=== PATIENT | female | born 1950 | race African-American/Black ===

== ENCOUNTER 2020-07-29 21:16 | Inpatient (IN) | payer MEDICAID ==
[~2020-07-29] VITALS: Ht 157.5 cm; Wt 85.7 kg
[2020-07-29 21:16] VITALS: BP 116/62
[2020-07-29] MEDS ORDERED: LIPITOR80 MG ORAL (21:25)
[2020-07-29] MEDS ORDERED: ALBUTEROL2.5 MG/3 M INH (21:25)
[2020-07-29] MEDS ORDERED: BUDESONIDE-FO10.2 G1 IH (21:25)
[2020-07-29] MEDS ORDERED: ASPERCREME LID1 EACH TP (21:25)
[2020-07-29] MEDS ORDERED: NESINA25 MG PO (21:25)
[2020-07-29] MEDS ORDERED: ACETAMINOPHEN325 M1 ORAL (21:25)
[2020-07-29] MEDS ORDERED: Zosyn 3.375gm inj ONE (21:29)
[2020-07-29] MEDS ORDERED: dexAMETHasone 10mg/ml Inj IV ONE ×2 (21:30→21:31)
[2020-07-29] MEDS ORDERED: Piperacillin/Tazobactam 3.375 GM in NS 110 ML IV ONE (21:30)
[2020-07-29 21:57] LABS: BASOPHILS % (AUTO) 1.7 % (0.0-2.0); EOSINOPHILS % (AUTO) 0.8 % (0.0-3.0); HEMATOCRIT 34.5 % (37.0-47.0); LYMPHOCYTES % (AUTO) 16.5 % (20.0-45.0); MEAN CORPUSCULAR VOLUME 90 FL (80-99); MONOCYTES % (AUTO) 8.1 % (1.0-10.0); NEUTROPHILS % (AUTO) 72.9 % (45.0-75.0); PLATELET COUNT 202 K/UL (150-450); RED BLOOD COUNT 3.83 M/UL (4.20-5.40); RED CELL DISTRIBUTION WIDTH 19.5 % (11.6-14.8); WHITE BLOOD COUNT 14.8 K/UL (4.8-10.8)
[2020-07-29 21:57] LABS: APPEARANCE,URINE VERY CLOUDY; BILIRUBIN, URINE NEGATIVE (NEGATIVE); COLOR,URINE PALE YELLOW; GLUCOSE, URINE (UA) NEGATIVE (NEGATIVE); KETONES,URINE NEGATIVE (NEGATIVE); LEUKOCYTE ESTERASE ,URINE 3+ (NEGATIVE); NITRITE,URINE NEGATIVE (NEGATIVE); PH,URINE 8 (4.5-8.0); PROTEIN,URINE 4+ (NEGATIVE); UROBILINOGEN,URINE NORMAL MG/DL (0.0-1.0)
[2020-07-29 22:18] LABS: INR 0.9 (0.9-1.1)
[2020-07-29] MEDS ORDERED: DIPHENHYDRAMINE25 M1 ORAL (22:21)
[2020-07-29] MEDS ORDERED: GUAIFENESI100 MG/5 M ORAL (22:21)
[2020-07-29] MEDS ORDERED: CALCIUM ACETAT667 M1 PO (22:21)
[2020-07-29] MEDS ORDERED: TRAZODONE HCL100 MG ORAL (22:21)
[2020-07-29] MEDS ORDERED: SENNA8.6 M2 PO (22:21)
[2020-07-29] MEDS ORDERED: LEXAPRO10 MG ORAL (22:21)
[2020-07-29] MEDS ORDERED: NEPHROVITE1 TAB ORAL (22:21)
[2020-07-29] MEDS ORDERED: APRESOLINE100 MG ORAL (22:21)
[2020-07-29] MEDS ORDERED: DULCOLAX10 MG RC (22:21)
[2020-07-29] MEDS ORDERED: NAHCO3650 MG ORAL (22:21)
[2020-07-29] MEDS ORDERED: ZOFRAN4 M1 ORAL (22:21)
[2020-07-29] MEDS ORDERED: CLONIDINE HCL0.3 MG PO (22:21)
[2020-07-29] MEDS ORDERED: FERROUS SULFAT325 M2 ORAL (22:21)
[2020-07-29] MEDS ORDERED: ADALAT20 MG ORAL (22:21)
[2020-07-29] MEDS ORDERED: COREG12.5 MG ORAL (22:21)
[2020-07-29] MEDS ORDERED: MIRALAX17 G2 ORAL (22:21)
[2020-07-29] MEDS ORDERED: LACTULOSE10 GM/155 PO (22:21)
[2020-07-29 22:22] LABS: CALCIUM 6.6 MG/DL (8.5-10.1); CREATININE 10.4 MG/DL (0.55-1.30); POTASSIUM 4.2 MMOL/L (3.5-5.1)
[2020-07-29 22:33] LABS: ALBUMIN 1.9 G/DL (3.4-5.0); ALBUMIN/GLOBULIN RATIO 0.5 (1.0-2.7); BILIRUBIN,TOTAL 0.2 MG/DL (0.2-1.0); CKMB 1.1 NG/ML (0.0-3.6); PHOSPHORUS 6.6 MG/DL (2.5-4.9)
[2020-07-29] MEDS ORDERED: Miralax 17gm pkt ORAL PRN (22:45)
[2020-07-29] MEDS ORDERED: guaiFENesin 100mg/5ml Liq ud ORAL PRN (22:45)
[2020-07-29] MEDS ORDERED: Nitroglycerin Subl 0.4mg tab SL PRN (22:45)
--- NOTE | 2020-07-29 22:48 | Emergency Room Report ---
History of Present Illness General Chief Complaint: Flu Like Symptoms Source: Patient, EMS Present Illness HPI Disclaimer: Please note that this report is being documented using DRAGON technology. This can lead to erroneous entry secondary to incorrect interpretation by the dictating instrument. HPI: This is a 70-year-old female with a history of ESRD, diabetes, hyperlipidemia, asthma presenting for evaluation of pneumonia diagnosed on outpatient imaging. Patient tested positive for Covid 19 last week though tested negative by rapid swab today. Chest x-ray performed at nursing facility is concerning for infiltrates. Patient arrives saturating 100% on 3 L nasal cannula no respiratory distress. Patient states she feels "sick" but is feeling better on oxygen. Denies chest pain or palpitations. Reports intermittent cough and feeling weak. 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 EOMI. Cardiovascular: Somewhat irregular rhythm. Palpable fistula on the left antecubital fossa. Resp: Normal work of breathing on 3 L nasal cannula. No wheezing or crackles appreciated. Skin: Intact. No abrasions, laceration or rash over the exposed skin MSK: Normal tone and bulk. Moving all extremities. No obvious deformity. Neuro: Awake and alert. Mentating appropriately. Medical Decision Making Diagnostic Impression: Primary Impression: Pneumonia Additional Impressions: UTI (urinary tract infection) Suspected 2019 novel coronavirus infection Metabolic acidosis ER Course Is a 70-year-old female with history of ESRD and recently tested positive for COVID-19 presenting for possible pneumonia. EKG shows sinus rhythm with frequent PVCs but no obvious ischemic ST changes. Chest x-ray shows cardiomegaly and mild vascular congestion. There may be a consolidation of the left lower lobe it is difficult to make out the heart border. Patient was treated with Zosyn empirically on arrival and is currently doing well on 3 L nasal cannula. Labs show Slightly elevated white count at 14.8 though she does seem to have a metabolic acidosis with a pH of 7.13. Troponin slightly elevated in the setting of renal failure. Urinalysis consistent with acute urinary tract infection. Patient would require admission to her PMD, Dr. Andres Laboratory Tests Test 07/29/20 20:40 07/29/20 21:41 07/29/20 22:00 White Blood Count 14.8 K/UL (4.8-10.8) H Red Blood Count 3.83 M/UL (4.20-5.40) L Hemoglobin 11.0 G/DL (12.0-16.0) L Hematocrit 34.5 % (37.0-47.0) L Mean Corpuscular Volume 90 FL (80-99) Mean Corpuscular Hemoglobin 28.6 PG (27.0-31.0) Mean Corpuscular Hemoglobin Concent 31.8 G/DL (32.0-36.0) L Red Cell Distribution Width 19.5 % (11.6-14.8) H Platelet Count 202 K/UL (150-450) Mean Platelet Volume 7.8 FL (6.5-10.1) Neutrophils (%) (Auto) 72.9 % (45.0-75.0) Lymphocytes (%) (Auto) 16.5 % (20.0-45.0) L Monocytes (%) (Auto) 8.1 % (1.0-10.0) Eosinophils (%) (Auto) 0.8 % (0.0-3.0) Basophils (%) (Auto) 1.7 % (0.0-2.0) Prothrombin Time 10.3 SEC (9.30-11.50) Prothrombin Time INR 0.9 (0.9-1.1) Activated Partial Thromboplast Time 33 SEC (23-33) D-Dimer 6.41 mg/L FEU (0.00-0.49) H Sodium Level 135 MMOL/L (136-145) L Potassium Level 4.2 MMOL/L (3.5-5.1) Chloride Level 105 MMOL/L (98-107) Carbon Dioxide Level 12 MMOL/L (21-32) L Anion Gap 18 mmol/L (5-15) H Blood Urea Nitrogen 157 mg/dL (7-18) H Creatinine 10.4 MG/DL (0.55-1.30) H Estimated Glomerular Filtration Rate 4.5 mL/min (>60) Glucose Level 100 MG/DL (74-106) Lactic Acid Level 0.30 mmol/L (0.4-2.0) L Calcium Level 6.6 MG/DL (8.5-10.1) L Phosphorus Level 6.6 MG/DL (2.5-4.9) H Magnesium Level 1.6 MG/DL (1.8-2.4) L Ferritin 809 NG/ML (8-388) H Total Bilirubin 0.2 MG/DL (0.2-1.0) Aspartate Amino Transferase (AST) 38 U/L (15-37) H Alanine Aminotransferase (ALT) 11 U/L (12-78) L Alkaline Phosphatase 64 U/L (46-116) Lactate Dehydrogenase 403 U/L (81-234) H Total Creatine Kinase 110 U/L (26-308) Creatine Kinase MB 1.1 NG/ML (0.0-3.6) Creatine Kinase MB Relative Index 1.0 Troponin I 0.058 ng/mL (0.000-0.056) C-Reactive Protein, Quantitative 7.2 mg/dL (0.00-0.90) H Pro-B-Type Natriuretic Peptide 25761 pg/mL (0-125) H Total Protein 6.1 G/DL (6.4-8.2) L Albumin 1.9 G/DL (3.4-5.0) L Globulin 4.2 g/dL Albumin/Globulin Ratio 0.5 (1.0-2.7) L Lipase 380 U/L (73-393) Urine Color Pale yellow Urine Appearance Very cloudy Urine pH 8 (4.5-8.0) Urine Specific [place] 1.010 (1.005-1.035) Urine Protein 4+ (NEGATIVE) H Urine Glucose (UA) Negative (NEGATIVE) Urine Ketones Negative (NEGATIVE) Urine Blood 2+ (NEGATIVE) H Urine Nitrite Negative (NEGATIVE) Urine Bilirubin Negative (NEGATIVE) Urine Urobilinogen Normal MG/DL (0.0-1.0) Urine Leukocyte Esterase 3+ (NEGATIVE) H Urine RBC 10-15 /HPF (0 - 2) H Urine WBC Tntc /HPF (0 - 2) H Urine Squamous Epithelial Cells Moderate /LPF (NONE/OCC) H Urine Bacteria Many /HPF (NONE) H Arterial Blood pH 7.137 (7.350-7.450) Arterial Blood Partial Pressure CO2 32.7 mmHg (35.0-45.0) L Arterial Blood Partial Pressure O2 169.3 mmHg (75.0-100.0) H Arterial Blood HCO3 10.8 mmol/L (22.0-26.0) *L Arterial Blood Oxygen Saturation 98.4 % (95-100) Arterial Blood Base Excess -17.0 (-2-2) *L William Test Positive EKG Diagnostic Results Troponin ordered: Yes When was troponin ordered?: Jul 29, 2020 EKG Time: 21:27 Rate: normal Rhythm: NSR ST Segments: no acute changes Other Impression Sinus rhythm, frequent PVCs, no ST segment changes. Rhythm Strip Diag. Results Rhythm Strip Time: 21:27 EP Interpretation: yes Rate: 70s Rhythm: other - Frequent PVCs Chest X-Ray Diagnostic Results Chest X-Ray Diagnostic Results : Chest X-Ray Ordered: Yes # of Views/Limited/Complete: 1 View Indication: Shortness of Breath EP Interpretation: Yes Interpretation: no effusion, no pneumothorax, other - Possible consolidation left lower lobe. No obvious effusion. No pneumothorax. Impression: Other - Cardiomegaly, possible left lower lobe effusion Electronically Signed by: Electronically signed by Dr. Aryan Angeles MD Last Vital Signs Date Time Temp Pulse Resp B/P (MAP) Pulse Ox O2 Delivery O2 Flow Rate FiO2 07/29/20 21:08 74 20 140/60 (86) 98 Nasal Cannula 3.0 Disposition: ADMITTED INPATIENT Condition: Serious Referrals: Christopher Andres MD (PCP) Aryan Angeles MD Jul 29, 2020 22:48
[2020-07-29] MEDS ORDERED: Sodium Bicarbonate 150 ML in D5W 1000ml 1,000 ML IV SCH (23:00)
[2020-07-29] MEDS ORDERED: Azithromycin 250mg tab ORAL SCH (23:00)
[2020-07-29] MEDS: Albuterol/Ipratropium 3ml neb HHN SCH (23:00)
[2020-07-30] MEDS ORDERED: Morphine Sulfate 2mg/ml Inj(IV/IM USE ONLY) IVP ONE (00:15)
[2020-07-30 01:14] VITALS: BP 110/64
[2020-07-30] MEDS: Albuterol/Ipratropium 3ml neb HHN SCH ×6 (03:00→23:00)
--- NOTE | 2020-07-30 03:16 | History and Physical Report ---
DATE OF ADMISSION: 07/29/2020 CHIEF COMPLAINT AND REASON FOR HOSPITALIZATION: The patient admitted with weakness, shortness of breath, possible COVID-19 versus CHF, and end-stage renal disease. HISTORY OF PRESENT ILLNESS: The patient is a 70-year-old lady with chronic kidney disease secondary to diabetes and hypertension. She has had progressive azotemia and a recent lab as outpatient showed BUN of 120 and creatinine of 9 and some metabolic acidosis. She was recently transferred from [facility] to [facility] because of asymptomatic positive COVID test. The nurse said she has had mild cough and a chest x-ray today at the [facility] showed bilateral infiltrates. COVID-19 rapid test on 07/29/2020 was negative. There is no fever or chills. PAST MEDICAL HISTORY: The patient has history of COPD, former smoker, hypertension difficult to control, chronic depression, bedridden status, nonambulatory, osteoarthritis, and nephrotic syndrome. ALLERGIES: None known. SURGERIES: Ovaries bilaterally and partial hysterectomy, ventral hernia. HABITS: She is a prior smoker for many years and quit. No alcohol or drugs. SOCIAL HISTORY: She lives in [facility]. MEDICATIONS: Include Tylenol, albuterol inhalation, alogliptin, lidocaine patch, atorvastatin, Symbicort, calcium acetate, carvedilol, clonidine, Benadryl, Dulcolax suppository, Lexapro, famotidine, ferrous sulfate, hydralazine, lactobacillus, lactulose, Lasix discontinued a few days ago, MiraLAX, Nephro-Diane, nifedipine extended release, Epogen, senna, and vitamin D3. SYSTEM REVIEW: HEAD, EYES, EARS, NOSE, THROAT: Vision and hearing is good. ENDOCRINE: History of diabetes, controlled by oral agents alone. No thyroid disease. She likely has a lipoma adjacent to the thyroid. PULMONARY: History of COPD. In the past, she was oxygen dependent, but she has been off oxygen for more than a year. CARDIAC: History of severe hypertension. History of leg edema likely from nephrotic syndrome and low albumin. No definite angina or [place]. GASTROINTESTINAL: History of chronic constipation and prior diarrhea, which may have been post obstruction from some irritable bowel syndrome. No hematochezia or melena. GENITOURINARY: She is incontinent of urine. NEUROLOGIC: No CVA or seizures. PHYSICAL EXAMINATION: GENERAL: The patient is alert and chronically ill appearing. VITAL SIGNS: Reviewed on the computer. HEAD, EYES, EARS, NOSE, THROAT: Sclerae are nonicteric. Ocular motions intact in all directions. Oral mucosa moist. NECK: No adenopathy. LUNGS: I do not hear any rales or rhonchi. HEART: Regular rhythm. No murmur. ABDOMEN: Obese and soft without organomegaly. She has a ventral hernia. EXTREMITIES: Show 2+ edema and dry scaly skin on the lower extremities. NEUROLOGIC: She is alert and responsive. Cranial nerves are intact. She moves all extremities. IMPRESSION: 1. Chronic kidney disease stage 5, due for dialysis. 2. Bilateral pulmonary infiltrates, possibly from CHF versus COVID-19 pneumonia. COVID test rapid on 07/29/2020 is negative. 3. COPD. 4. Severe hypertension. 5. Debility. PLAN: We will treat her for CHF, acidosis, and COVID-19. Watch closely in view of her comorbidities. Detailed orders were written. Christopher Andres M.D. DR: Fiordaliza JOB#: [id number] CC:
[2020-07-30 08:00] VITALS: BP 156/60
[2020-07-30] MEDS: dexAMETHasone 10mg/ml Inj IV SCH (08:27)
[2020-07-30] MEDS: Aspirin Baby 81mg ORAL SCH (08:28)
[2020-07-30] MEDS: Nephrovite tab (Rena-Vite) ORAL SCH (08:29)
[2020-07-30] MEDS: Carvedilol 12.5mg tab ORAL SCH ×2 (08:29→21:33)
[2020-07-30] MEDS: HydrALAZINE 10mg Tab ORAL SCH ×3 (08:30→17:46)
[2020-07-30] MEDS: Heparin 5000 units/ml inj SUBQ SCH ×2 (08:31→21:00)
[2020-07-30] MEDS ORDERED: Piperacillin/Tazobactam 3.375 GM in NS 110 ML IVPB SCH (09:00)
[2020-07-30 10:40] LABS: HEMATOCRIT 30.8 % (37.0-47.0); HEMOGLOBIN 9.6 G/DL (12.0-16.0); MEAN CORPUSCULAR VOLUME 91 FL (80-99); PLATELET COUNT 207 K/UL (150-450); RED BLOOD COUNT 3.38 M/UL (4.20-5.40); RED CELL DISTRIBUTION WIDTH 18.6 % (11.6-14.8); WHITE BLOOD COUNT 11.2 K/UL (4.8-10.8)
[2020-07-30] MEDS: Lactulose 10gm/15ml UDC ORAL SCH ×2 (10:53→15:59)
[2020-07-30 11:01] LABS: ALBUMIN 1.7 G/DL (3.4-5.0); ALBUMIN/GLOBULIN RATIO 0.4 (1.0-2.7); BILIRUBIN,TOTAL 0.2 MG/DL (0.2-1.0); CALCIUM 6.2 MG/DL (8.5-10.1); CREATININE 10.7 MG/DL (0.55-1.30); POTASSIUM 4.7 MMOL/L (3.5-5.1)
[2020-07-30] MEDS ORDERED: FAMOTIDINE20 MG ORAL (11:58)
[2020-07-30] MEDS ORDERED: BISACODYL10 M1 RC (11:58)
[2020-07-30] MEDS ORDERED: HYDRALAZINE HC100 MG ORAL (11:58)
[2020-07-30] MEDS ORDERED: NIFEDIPINE ER60 M2 ORAL (11:58)
[2020-07-30] MEDS ORDERED: FERROUS SULFAT325 MG ORAL (11:58)
[2020-07-30] MEDS ORDERED: CULTURELLE1 EACH ORAL (11:58)
[2020-07-30] MEDS ORDERED: RETACRIT10000 UNIT SQ (11:58)
[2020-07-30] MEDS ORDERED: VITAMIN D3125 MCG PO (11:58)
[2020-07-30 12:00] VITALS: BP 130/50
[2020-07-30 12:06] LABS: CREATINE KINASE 100 U/L (26-308)
--- NOTE | 2020-07-30 12:44 | Consultation ---
DATE OF CONSULTATION: 07/30/2020 INFECTIOUS DISEASES CONSULTATION CONSULTING PHYSICIAN: Joyce Laurent MD. REFERRING PHYSICIAN: Christopher Andres MD. REASON FOR CONSULTATION: COVID-19 pneumonia HISTORY OF PRESENT ILLNESS: This is a 70-year-old lady with history of congestive heart failure, renal failure, COPD, hypertension who comes in because she has had cough and shortness of breath. She was found to be COVID-19 positive about a couple of weeks ago but now the rapid test is negative. An Infectious Diseases consultation has been obtained for antibiotics. PAST MEDICAL HISTORY: 1. History of hypertension. 2. COPD. 3. Renal failure. 4. Depression. 5. Osteoarthritis. 6. Nephrotic syndrome. 7. History of partial hysterectomy. 8. History of ventral hernia. SOCIAL HISTORY: She used to be a smoker. She does not smoke anymore. No history of alcohol or drug use. FAMILY HISTORY: Noncontributory. REVIEW OF SYSTEMS: RESPIRATORY: No fever or chills. She does have cough. She has shortness of breath. No chest pain. CARDIAC: No chest pain. No palpitation. No dizziness. No syncope. GASTROINTESTINAL: No nausea. No vomiting. No abdominal pain or diarrhea. MEDICATIONS: She is on trazodone, Senokot, atorvastatin, Symbicort, clonidine, hydralazine, vitamin , folic acid, Lexapro, Coreg, calcium acetate, Zosyn dexamethasone, famotidine, aspirin, subcutaneous heparin, azithromycin, Lasix, albuterol, ipratropium, Zofran, guaifenesin, Benadryl, MiraLAX, Tylenol, nitroglycerin. ALLERGIES: No known drug allergies. PHYSICAL EXAMINATION: VITAL SIGNS: Temperature 97.7, T-max of 99, pulse of 77, respiratory rate 20, blood pressure 155/60, O2 saturation of 98% on 2 liters of oxygen. Examination deferred due to COVID-19. LABORATORY AND DIAGNOSTIC DATA: White count of 14.8 yesterday, white count 11.2 today, hemoglobin 9.6, hematocrit 30.8, MCV 91, platelet count of 207 with neutrophils of 72%. Sodium 135, potassium 4.7, chloride 105, bicarb 14, BUN 150, creatinine 10.7, glucose 150, calcium 6.2. Total bilirubin 0.2, AST 33, ALT 9, alkaline phosphatase 55, total protein 5.5, albumin 1.7, lipase of 380. UA showing too numerous to count white cells. COVID-19 test is positive. Chest x-ray showed infiltrate. ASSESSMENT: This is a 70-year-old lady with history of diabetes, hypertension, COPD, renal failure who comes in with cough and shortness of breath and is found to have: 1. COVID-19 pneumonia. She is on 2 liters of oxygen with 98% saturation. 2. Diabetes. 3. Hypertension. 4. Renal failure. 5. COPD. PLAN: 1. Continue Decadron day #2. 2. We will give one dose of ivermectin. Benefits outweigh the risks. 3. We will discontinue Zosyn and azithromycin. 4. Continue isolation. I would like to thank, Dr. Christopher Andres, for this consultation. Joyce Laurent M.D. DR: Marissa JOB#: [id number] CC: Christopher Andres M.D.; Fax#: [phone]
--- NOTE | 2020-07-30 14:24 | Diagnostic Imaging Report ---
Indication: Shortness of breath Technique: One view of the chest Comparison: none Findings: The heart is mildly enlarged. There are bilateral interstitial and airspace opacities, diffuse throughout the right lung and in a denser and more concentrated perihilar distribution in the left lung the pleural spaces are grossly clear. There is thoracic scoliotic deformity Impression: Cardiomegaly Bilateral pulmonary edema, versus infiltrates possibly related to multifocal pneumonia. Correlate with clinical findings
--- NOTE | 2020-07-30 14:31 | Cardiology Report ---
APPROVED REPORT EXAM: Two-dimensional and M-mode echocardiogram with Doppler and color Doppler. INDICATION Congestive Heart Failure M-Mode DIMENSIONS IVSd1.3 (0.7-1.1cm)Left Atrium (MM)3.9 (1.6-4.0cm) LVDd4.9 (3.5-5.6cm)Aortic Root3.1 (2.0-3.7cm) PWd1.3 (0.7-1.1cm)Aortic Cusp Exc.1.8 (1.5-2.0cm) IVSs1.8 cmEPSS0.2 (>1.0cm) LVDs3.7 (2.5-4.0cm) PWs2.1 cm <Conclusion> Mild left ventricular enlargement. Normal left ventricular systolic function and wall motion. Left ventricular ejection fraction estimated to be 70 %. No evidence of pericardial effusion. Mild left ventricular hypertrophy. Mild left atrial enlargement. Right atrial size at upper limits of normal. Right ventricular chamber size is within normal limits. Focal aortic valve sclerosis with adequate cusp excursion. Thickened mitral valve leaflets with normal excursion. Mitral annulus and aortic root calcification. Pulmonic valve not well visualized. Normal tricuspid valve structure. IVC dilated at 2.2 cm with slight physiologic collapse suggestive of increased RA pressure. A color flow and spectral Doppler study was performed and revealed: No aortic regurgitation.Aortic vavle peak gradient 23 mmhg and mean gradinet 9 mmhg Mild mitral regurgitation. Mitral diastolic velocities suggest reduced left ventricular relaxation c/w mild LV diastolic dysfunction (Grade I ). Mild tricuspid regurgitation. Tricuspid systolic velocities suggests peak right ventricular systolic pressure of 46 mmHg, consistent with mild pulmonary hypertension. No pulmonic regurgitation present. There is increased velocities across the pulmonic valve with a 16 mmgh gradient across the valve however i cannot be sure of flow contamination.
[2020-07-30 16:00] VITALS: BP 120/50
[2020-07-30] MEDS: NovoLOG Insulin Flexpen SUBQ SCH ×2 (16:45→21:00)
--- NOTE | 2020-07-30 16:59 | Nephrology Progress Note ---
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 (4) Nephrotic syndrome (5) End-stage renal disease (6) CHF (congestive heart failure), NYHA class II (7) Metabolic acidosis (8) Suspected 2019 novel coronavirus infection (9) Pneumonia Plan d/w consultants, dexamethasone, antibiotics, ivernectin, diuresis, to get dialysis cath and start HD 07/31 Subjective Constitutional: Reports: weakness HEENT: Reports: no symptoms Genitourinary: Reports: incontinence Neurologic/Psychiatric: Reports: no symptoms Subjective mild cough Objective Objective Last 24 Hour Vital Signs Date Time Temp Pulse Resp B/P (MAP) Pulse Ox O2 Delivery O2 Flow Rate FiO2 07/30/20 16:00 97.5 69 20 120/50 (73) 100 07/30/20 13:21 130/50 07/30/20 13:21 130/50 07/30/20 12:00 97.5 71 20 130/50 (76) 98 07/30/20 12:00 67 07/30/20 08:30 156/60 07/30/20 08:29 77 156/60 07/30/20 08:28 156/60 07/30/20 08:04 77 07/30/20 08:00 97.7 77 20 156/60 (92) 98 07/30/20 05:00 Nasal Cannula 2.0 07/30/20 01:35 98.9 86 20 116/68 100 Nasal Cannula 3.0 07/30/20 01:14 98.8 80 20 110/64 98 Nasal Cannula 3.0 07/29/20 21:16 99.0 86 20 116/62 98 Nasal Cannula 3.0 07/29/20 21:16 74 20 Nasal Cannula 3.0 07/29/20 21:08 74 20 140/60 (86) 98 Nasal Cannula 3.0 Laboratory Tests 07/29/20 20:40: White Blood Count 14.8H, Red Blood Count 3.83L, Hemoglobin 11.0L, Hematocrit 34.5L, Mean Corpuscular Volume 90, Mean Corpuscular Hemoglobin 28.6, Mean Corpuscular Hemoglobin Concent 31.8L, Red Cell Distribution Width 19.5H, Platelet Count 202, Mean Platelet Volume 7.8, Neutrophils (%) (Auto) 72.9, Lymphocytes (%) (Auto) 16.5L, Monocytes (%) (Auto) 8.1, Eosinophils (%) (Auto) 0.8, Basophils (%) (Auto) 1.7, Prothrombin Time 10.3, Prothromb Time [place] al Ratio 0.9, Activated Partial Thromboplast Time 33, D-Dimer 6.41H, Sodium Level 135L, Potassium Level 4.2, Chloride Level 105, Carbon Dioxide Level 12L, Anion Gap 18H, Blood Urea Nitrogen 157H, Creatinine 10.4H, Estimat Glomerular Filtration Rate 4.5, Glucose Level 100, Lactic Acid Level 0.30L, Calcium Level 6.6L, Phosphorus Level 6.6H, Magnesium Level 1.6L, Ferritin 809H, Total Bilirubin 0.2, Aspartate Amino Transf (AST/SGOT) 38H, Alanine Aminotransferase (ALT/SGPT) 11L, Alkaline Phosphatase 64, Lactate Dehydrogenase 403H, Total Creatine Kinase 110, Creatine Kinase MB 1.1, Creatine Kinase MB Relative Index 1.0, Troponin I 0.058H, C-Reactive Protein, Quantitative 7.2H, Pro-B-Type Natriuretic Peptide 75070D, Total Protein 6.1L, Albumin 1.9L, Globulin 4.2, Albumin/Globulin Ratio 0.5L, Lipase 380 07/29/20 21:41: Urine Color Pale yellow, Urine Appearance Very cloudy, Urine pH 8, Urine Specific [place] 1.010, Urine Protein 4+H, Urine Glucose (UA) Negative, Urine Ketones Negative, Urine Blood 2+H, Urine Nitrite Negative, Urine Bilirubin Neg ative, Urine Urobilinogen Normal, Urine Leukocyte Esterase 3+H, Urine RBC 10-15H , Urine WBC TntcH, Urine Squamous Epithelial Cells ModerateH, Urine Bacteria ManyH 07/29/20 22:00: Arterial Blood pH 7.137*L, Arterial Blood Partial Pressure CO2 32.7L, Arterial Blood Partial Pressure O2 169.3H, Arterial Blood HCO3 10.8*L, Arterial Blood Oxygen Saturation 98.4, Arterial Blood Base Excess -17.0*L, William Test Positive 07/30/20 10:30: White Blood Count 11.2H, Red Blood Count 3.38L, Hemoglobin 9.6L, Hematocrit 30.8L, Mean Corpuscular Volume 91, Mean Corpuscular Hemoglobin 28.4, Mean Corpuscular Hemoglobin Concent 31.1L, Red Cell Distribution Width 18.6H, Platelet Count 207, Mean Platelet Volume 8.2, Neutrophils (%) (Auto) , Lymphocytes (%) (Auto) , Monocytes (%) (Auto) , Eosinophils (%) (Auto) , Basophils (%) (Auto) , Prothrombin Time 10.9, Prothromb Time International Ratio 1.0, Activated Partial Thromboplast Time 36H, Sodium Level 135L, Potassium Level 4.7, Chloride Level 105, Carbon Dioxide Level 14L, Anion Gap 16H, Blood Urea Nitrogen 150H, Creatinine 10.7H, Estimat Glomerular Filtration Rate 4.4, Glucose Level 150H, Calcium Level 6.2L, Total Bilirubin 0.2, Aspartate Amino Transf (AST/SGOT) 33, Alanine Aminotransferase (ALT/SGPT) 9L, Alkaline Phosphatase 55, Total Creatine Kinase 100, Troponin I 0.044, Pro-B-Type Natriuretic Peptide 85409K, Total Protein 5.5L, Albumin 1.7L, Globulin 3.8, Albumin/Globulin Ratio 0.4L, Differential Total Cells Counted 100, Neutrophils % (Manual) 75, Lymphocytes % (Manual) 16L, Monocytes % (Manual) 6, Eosinophils % (Manual) 0, Basophils % (Manual) 0, Band Neutrophils 3, Platelet Estimate Adequate, Platelet Morphology Normal, Hypochromasia 1+, Anisocytosis 1+, Schistocytes Occasional, Thyroid Stimulating Hormone (TSH) 1.813, Hepatitis B Surface Antigen [Pending], HIV (1&2) Antibody Rapid Negative Height (Feet): 5 Height (Inches): 2.00 Weight (Pounds): 189 General Appearance: alert, obese EENT: normal ENT inspection Neck: normal alignment Cardiovascular: normal rate, regular rhythm Respiratory/Chest: lungs clear Abdomen: non tender, soft Extremities: moderate edema 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
[2020-07-30 20:00] VITALS: BP 128/53
[2020-07-30] MEDS: Atorvastatin 80mg tab ORAL SCH (21:34)
[2020-07-30] MEDS: Sennosides 8.6mg tab ORAL SCH (21:34)
[2020-07-30] MEDS: TraZODone 100mg tab ORAL SCH (21:34)
[2020-07-31] VITALS: BP 112/48
[2020-07-31] MEDS: Albuterol/Ipratropium 3ml neb HHN SCH (03:00)
[2020-07-31 04:00] VITALS: BP 116/46
[2020-07-31] MEDS: NovoLOG Insulin Flexpen SUBQ SCH ×4 (06:01→21:00)
[2020-07-31 07:32] LABS: BASOPHILS % (AUTO) 1.1 % (0.0-2.0); HEMATOCRIT 28.6 % (37.0-47.0); HEMOGLOBIN 9.5 G/DL (12.0-16.0); LYMPHOCYTES % (AUTO) 19.1 % (20.0-45.0); MEAN CORPUSCULAR VOLUME 88 FL (80-99); MONOCYTES % (AUTO) 8.9 % (1.0-10.0); NEUTROPHILS % (AUTO) 70.9 % (45.0-75.0); PLATELET COUNT 196 K/UL (150-450); RED BLOOD COUNT 3.27 M/UL (4.20-5.40); RED CELL DISTRIBUTION WIDTH 19.3 % (11.6-14.8); WHITE BLOOD COUNT 13.5 K/UL (4.8-10.8)
[2020-07-31 07:34] LABS: CREATININE 11.4 MG/DL (0.55-1.30); PHOSPHORUS 6.9 MG/DL (2.5-4.9); POTASSIUM 4.5 MMOL/L (3.5-5.1)
[2020-07-31 08:00] VITALS: BP 130/56
[2020-07-31] MEDS: HydrALAZINE 10mg Tab ORAL SCH (09:00)
[2020-07-31] MEDS ORDERED: Heparin Sod 1000 units/ml 10ml IV PRN (09:00)
[2020-07-31] MEDS: Heparin 5000 units/ml inj SUBQ SCH ×2 (09:00→20:31)
[2020-07-31] MEDS: Aspirin Baby 81mg ORAL SCH (09:10)
[2020-07-31] MEDS: Nephrovite tab (Rena-Vite) ORAL SCH (09:10)
[2020-07-31] MEDS: dexAMETHasone 10mg/ml Inj IV SCH (09:11)
[2020-07-31] MEDS: Carvedilol 12.5mg tab ORAL SCH (09:11)
--- NOTE | 2020-07-31 11:18 | Infectious Diseases Prog Note ---
Assessment/Plan Assessment/Plan antibiotics : none A 1. 1. COVID-19 pneumonia. She is on 3 liters of oxygen with 98% saturation. s/p ivermectin 2. Diabetes. 3. Hypertension. 4. Renal failure. 5. COPD. P 1. continue decadron day 3 2. will follow up cultures 3. continue isolation Subjective ROS Limited/Unobtainable: Yes Allergies: Coded Allergies: No Known Allergies (Unverified , 07/29/20) Objective Last 24 Hour Vital Signs Date Time Temp Pulse Resp B/P (MAP) Pulse Ox O2 Delivery O2 Flow Rate FiO2 07/31/20 09:11 130/56 07/31/20 09:11 67 130/56 07/31/20 09:00 130/56 07/31/20 09:00 Nasal Cannula 3.0 07/31/20 08:00 65 07/31/20 08:00 97.2 67 20 130/56 (80) 98 07/31/20 04:00 65 07/31/20 04:00 97.6 65 19 116/46 (69) 98 07/31/20 00:00 65 07/31/20 00:00 97.5 70 20 112/48 (69) 98 07/30/20 21:33 74 128/53 07/30/20 21:00 Nasal Cannula 3.0 07/30/20 20:00 98.4 74 21 128/53 (78) 100 07/30/20 20:00 66 07/30/20 17:46 120/50 07/30/20 17:46 120/50 07/30/20 16:00 71 07/30/20 16:00 97.5 69 20 120/50 (73) 100 07/30/20 13:21 130/50 07/30/20 13:21 130/50 07/30/20 12:00 97.5 71 20 130/50 (76) 98 07/30/20 12:00 67 Height (Feet): 5 Height (Inches): 2.00 Weight (Pounds): 189 Microbiology Date/Time Source Procedure Growth Status 07/29/20 23:17 Nasopharynx SARS-CoV-2 RdRp Gene Assay - Final Complete 07/29/20 20:40 Blood Blood Culture - Preliminary NO GROWTH AFTER 24 HOURS Resulted 07/29/20 20:25 Blood Blood Culture - Preliminary NO GROWTH AFTER 24 HOURS Resulted Laboratory Tests Test 07/30/20 16:28 07/30/20 21:38 07/31/20 05:58 07/31/20 06:34 POC Whole Blood Glucose 149 MG/DL (74-106) H 111 MG/DL (74-106) H 91 MG/DL (74-106) White Blood Count 13.5 K/UL (4.8-10.8) H Red Blood Count 3.27 M/UL (4.20-5.40) L Hemoglobin 9.5 G/DL (12.0-16.0) L Hematocrit 28.6 % (37.0-47.0) L Mean Corpuscular Volume 88 FL (80-99) Mean Corpuscular Hemoglobin 29.0 PG (27.0-31.0) Mean Corpuscular Hemoglobin Concent 33.1 G/DL (32.0-36.0) Red Cell Distribution Width 19.3 % (11.6-14.8) H Platelet Count 196 K/UL (150-450) Mean Platelet Volume 8.4 FL (6.5-10.1) Neutrophils (%) (Auto) 70.9 % (45.0-75.0) Lymphocytes (%) (Auto) 19.1 % (20.0-45.0) L Monocytes (%) (Auto) 8.9 % (1.0-10.0) Eosinophils (%) (Auto) 0.0 % (0.0-3.0) Basophils (%) (Auto) 1.1 % (0.0-2.0) Sodium Level 136 MMOL/L (136-145) Potassium Level 4.5 MMOL/L (3.5-5.1) Chloride Level 105 MMOL/L (98-107) Carbon Dioxide Level 13 MMOL/L (21-32) L Anion Gap 18 mmol/L (5-15) H Blood Urea Nitrogen 164 mg/dL (7-18) H Creatinine 11.4 MG/DL (0.55-1.30) H Estimat Glomerular Filtration Rate 4.0 mL/min (>60) Glucose Level 97 MG/DL (74-106) Calcium Level 7.0 MG/DL (8.5-10.1) L Phosphorus Level 6.9 MG/DL (2.5-4.9) H Hepatitis C Antibody Pending Current Medications Medications (Trade) Dose Ordered Sig/Andrew Route PRN Reason Start Time Stop Time Status Last Admin Dose Admin Acetaminophen (Tylenol) 650 mg Q4H PRN ORAL Mild Pain (Pain Scale 1-3) 07/29/20 22:45 08/28/20 22:44 Acetaminophen (Tylenol) 650 mg Q4H PRN ORAL Temp >100.5 07/29/20 22:45 08/28/20 22:44 Albumin Human 100 ml @ 200 mls/hr PRN PRN IV sbp<90 during hd 07/31/20 09:00 07/31/20 23:59 Albuterol/ Ipratropium (Albuterol/ Ipratropium) 3 ml Q4HRT HHN 07/29/20 23:00 08/03/20 22:59 07/30/20 23:00 Aspirin (ASA) 81 mg DAILY ORAL 07/30/20 09:00 09/13/20 08:59 07/31/20 09:10 Atorvastatin Calcium (Lipitor) 80 mg BEDTIME ORAL 07/30/20 21:00 10/28/20 20:59 07/30/20 21:34 Budesonide/ Formoterol Fumarate (Symbicort 160/ 4.5) 2 puff BIDRT INH 07/30/20 10:00 10/28/20 09:59 07/31/20 10:17 Calcium Acetate (Phoslo) 667 mg TID ORAL 07/30/20 09:00 10/28/20 08:59 07/31/20 09:11 Carvedilol (Coreg) 12.5 mg EVERY 12 HOURS ORAL 07/30/20 09:00 08/29/20 08:59 07/31/20 09:11 Clonidine HCl (Catapres Tab) 0.3 mg THREE TIMES A DAY ORAL 07/30/20 09:00 10/28/20 08:59 07/31/20 09:11 Dexamethasone Sodium Phosphate (Decadron 10mg/ ml Inj) 6 mg DAILY IV 07/30/20 09:00 08/09/20 08:59 07/31/20 09:11 Dextrose (Dextrose 50%) 25 ml Q30M PRN IV Hypoglycemia 07/30/20 12:30 10/28/20 12:29 Dextrose (Dextrose 50%) 50 ml Q30M PRN IV Hypoglycemia 07/30/20 12:30 10/28/20 12:29 Diphenhydramine HCl (Benadryl) 25 mg Q6H PRN ORAL Itching 07/29/20 22:45 08/28/20 22:44 Escitalopram Oxalate (Lexapro) 10 mg DAILY ORAL 07/30/20 09:00 08/29/20 08:59 07/31/20 09:10 Famotidine (Pepcid) 20 mg DAILY ORAL 07/30/20 09:00 10/28/20 08:59 07/31/20 09:11 Furosemide (Lasix) 80 mg Q8H IV 07/29/20 23:00 08/28/20 22:59 07/31/20 06:11 Guaifenesin (Robitussin) 200 mg Q4H PRN ORAL FOR COUGH 07/29/20 22:45 10/27/20 22:44 Heparin Sodium (Porcine) (Heparin 5000 units/ml) 5,000 units EVERY 12 HOURS SUBQ 07/30/20 09:00 09/13/20 08:59 07/30/20 08:31 Heparin Sodium (Porcine) (Heparin Sod 1000 units/ml 10ml) 2,000 unit ONCE PRN IV dialysis 07/31/20 09:00 07/31/20 23:59 Hydralazine HCl (Apresoline) 100 mg Q8HR ORAL 07/31/20 14:00 10/28/20 08:59 Insulin Aspart (NovoLOG) BEFORE MEALS AND HS SUBQ 07/30/20 16:30 10/28/20 16:29 07/30/20 16:45 Lactulose (Cephulac) 30 gm BIDLS ORAL 07/30/20 11:30 08/29/20 11:29 07/30/20 15:59 Nitroglycerin (Ntg) 0.4 mg Q5M PRN SL Prn Chest Pain 07/29/20 22:45 08/28/20 22:44 Ondansetron HCl (Zofran) 4 mg Q4H PRN IVP Nausea & Vomiting 07/29/20 22:45 08/28/20 22:44 Polyethylene Glycol (Miralax) 17 gm DAILYPRN PRN ORAL Constipation 07/29/20 22:45 08/28/20 22:44 Sennosides (Senokot) 8.6 mg QHS ORAL 07/30/20 21:00 08/29/20 20:59 07/30/20 21:34 Trazodone HCl (Desyrel) 100 mg BEDTIME ORAL 07/30/20 21:00 08/29/20 20:59 07/30/20 21:34 Vitamin B Complex/ Vit C/Folic Acid (Nephrovite) 1 tab DAILY ORAL 07/30/20 09:00 08/29/20 08:59 07/31/20 09:10 Joyce Laurent MD Jul 31, 2020 11:18
[2020-07-31] MEDS: Lactulose 10gm/15ml UDC ORAL SCH ×2 (11:30→17:11)
[2020-07-31] MEDS ORDERED: Heparin1,000 units/500ml Premix(Conc:2 units/ml) IV PRN (11:56)
[2020-07-31] MEDS ORDERED: Lidocaine 1% Plain 30 ml INJ PRN (11:56)
[2020-07-31 12:00] VITALS: BP 136/81
[2020-07-31] MEDS ORDERED: HydrALAZINE 10mg Tab ORAL SCH (14:00)
[2020-07-31 16:00] VITALS: BP 100/58
--- NOTE | 2020-07-31 16:36 | Brief Operative Note ---
Immediate Post Operative Note Operative Note Pre-op Diagnosis: Renal failure Procedure: dialysis catheter Post-op Diagnosis: same as pre-op Anesthesia: local Specimen: none Complications: none Fluids: none Implant(s) used?: No Valeriano Snowden MD Jul 31, 2020 16:36
--- NOTE | 2020-07-31 18:04 | Diagnostic Imaging Report ---
Indication: Acute renal failure Technique: Procedure performed at bedside. Procedural timeout performed. Total sterile technique, including sterile probe cover and sterile gel, sterile gloves, hand hygiene, hat, mask, sterile gown, large sterile drape, and preparation with 2% chlorhexidine utilized. Local anesthesia with 1% lidocaine. Ultrasound reveals patent compressible right internal jugular vein. Under real-time ultrasound guidance with real-time visualization of the entry into the vein, puncture right internal jugular vein using 21-gauge needle, passage 0.018 guidewire, insertion 4 Ethiopian micropuncture introducer, passage 0.035 guidewire, over which was passed serial dilators and then a 13 Ethiopian 15 cm triple-lumen temporary dialysis catheter. Guidewire was removed. Catheter ports were aspirated and flushed. The catheter was fixed to the skin. Patient tolerated procedure well. A chest x-ray was obtained, documents catheter tip position at the cavoatrial junction. Comparison: 07/29/2020 Findings: As above Impression: Successful bedside placement of right transjugular temporary dialysis catheter, as described.
--- NOTE | 2020-07-31 19:32 | Nephrology Progress Note ---
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 (4) Nephrotic syndrome (5) End-stage renal disease (6) CHF (congestive heart failure), NYHA class II (7) Metabolic acidosis (8) Suspected 2019 novel coronavirus infection (9) Pneumonia (10) Hypotension (11) Angina at rest Plan d/w consultants, dexamethasone, antibiotics, ivernectin, dialysis cath and start HD 07/31, on 07/31 episode of hypotension and afib, nonsustained vtach, bp better with fluids, bp meds stopped for now, d/w dr ge Subjective Constitutional: Reports: weakness HEENT: Reports: no symptoms Genitourinary: Reports: incontinence Neurologic/Psychiatric: Reports: pre-existing deficit Subjective mild cough Objective Objective Last 24 Hour Vital Signs Date Time Temp Pulse Resp B/P (MAP) Pulse Ox O2 Delivery O2 Flow Rate FiO2 07/31/20 16:00 97.8 98 20 100/58 (72) 99 07/31/20 16:00 96 07/31/20 13:19 136/81 07/31/20 13:18 136/81 07/31/20 12:00 98.7 67 19 136/81 (99) 97 07/31/20 12:00 58 07/31/20 09:11 130/56 07/31/20 09:11 67 130/56 07/31/20 09:00 130/56 07/31/20 09:00 Nasal Cannula 3.0 07/31/20 08:00 65 07/31/20 08:00 97.2 67 20 130/56 (80) 98 07/31/20 04:00 65 07/31/20 04:00 97.6 65 19 116/46 (69) 98 07/31/20 00:00 65 07/31/20 00:00 97.5 70 20 112/48 (69) 98 07/30/20 21:33 74 128/53 07/30/20 21:00 Nasal Cannula 3.0 07/30/20 20:00 98.4 74 21 128/53 (78) 100 07/30/20 20:00 66 Intake and Output 07/30/20 07/31/20 19:00 07:00 # Bowel Movements 3 Laboratory Tests 07/30/20 21:38: POC Whole Blood Glucose 111H 07/31/20 05:58: POC Whole Blood Glucose 91 07/31/20 06:34: White Blood Count 13.5H, Red Blood Count 3.27L, Hemoglobin 9.5L, Hematocrit 28.6L, Mean Corpuscular Volume 88, Mean Corpuscular Hemoglobin 29.0, Mean Corpuscular Hemoglobin Concent 33.1, Red Cell Distribution Width 19.3H, Platelet Count 196, Mean Platelet Volume 8.4, Neutrophils (%) (Auto) 70.9, Lymphocytes (%) (Auto) 19.1L, Monocytes (%) (Auto) 8.9, Eosinophils (%) (Auto) 0.0, Basophils (%) (Auto) 1.1, Sodium Level 136, Potassium Level 4.5, Chloride Level 105, Carbon Dioxide Level 13L, Anion Gap 18H, Blood Urea Nitrogen 164H, Creatinine 11.4H, Estimat Glomerular Filtration Rate 4.0, Glucose Level 97, Calcium Level 7.0L, Phosphorus Level 6.9H, Hepatitis C Antibody [Pending] 07/31/20 16:40: POC Whole Blood Glucose 134H 07/31/20 17:50: Troponin I 0.135H Height (Feet): 5 Height (Inches): 2.00 Weight (Pounds): 189 General Appearance: obese EENT: normal ENT inspection Neck: normal alignment Cardiovascular: regularly irregular Respiratory/Chest: lungs clear Abdomen: soft Extremities: moderate edema 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
[2020-07-31 20:00] VITALS: BP 146/62
[2020-07-31] MEDS: Atorvastatin 80mg tab ORAL SCH (20:30)
[2020-07-31] MEDS: TraZODone 100mg tab ORAL SCH (20:30)
[2020-07-31] MEDS: Sennosides 8.6mg tab ORAL SCH (20:31)
[2020-07-31] MEDS: Carvedilol 25mg Tab ORAL SCH (20:35)
[2020-07-31] MEDS ORDERED: HydrALAZINE 50mg tab ORAL SCH (22:00)
[2020-07-31] MEDS: Nitroglycerin 2% oint pkt TOPIC SCH (23:17)
[2020-08-01] VITALS: BP 159/60
[2020-08-01] MEDS ORDERED: dilTIAZem HCl 60mg tab ORAL SCH
--- NOTE | 2020-08-01 02:48 | Cardiology Progress Note ---
Subjective DATE OF SERVICE: Jul 31, 2020 BP very labile; was very elevated, but dropped today to require antiHTN meds to be held. No CP No c/o SOB. Starting HD/UF Monitor with episode of Atrial Fibrillation and Non Sustained Ventric tach. Troponin 0.135 Objective Last 24 Hour Vital Signs Date Time Temp Pulse Resp B/P (MAP) Pulse Ox O2 Delivery O2 Flow Rate FiO2 08/01/20 00:00 98.7 65 20 159/60 (93) 99 08/01/20 00:00 64 07/31/20 23:17 65 159/60 07/31/20 23:17 159/60 07/31/20 21:00 Nasal Cannula 3.0 07/31/20 20:35 98 146/62 07/31/20 20:00 109 07/31/20 20:00 98.7 98 20 146/62 (90) 99 07/31/20 16:00 97.8 98 20 100/58 (72) 99 07/31/20 16:00 96 07/31/20 13:19 136/81 07/31/20 13:18 136/81 07/31/20 12:00 98.7 67 19 136/81 (99) 97 07/31/20 12:00 58 07/31/20 09:11 130/56 07/31/20 09:11 67 130/56 07/31/20 09:00 130/56 07/31/20 09:00 Nasal Cannula 3.0 07/31/20 08:00 65 07/31/20 08:00 97.2 67 20 130/56 (80) 98 07/31/20 04:00 65 07/31/20 04:00 97.6 65 19 116/46 (69) 98 HEENT: normal ENT inspection RHYTHM: NSR, Afib, VT LUNGS: rales bilaterally CARDIAC: normal rate, regular rhythm, normal S1 and S2 ABDOMEN: normal bowel sounds, non tender, no organomegaly EXTREMITIES: normal range of motion, non-tender, +1 edema Laboratory Tests Test 07/31/20 05:58 07/31/20 06:34 07/31/20 16:40 07/31/20 17:50 POC Whole Blood Glucose 91 MG/DL (74-106) 134 MG/DL (74-106) H White Blood Count 13.5 K/UL (4.8-10.8) H Red Blood Count 3.27 M/UL (4.20-5.40) L Hemoglobin 9.5 G/DL (12.0-16.0) L Hematocrit 28.6 % (37.0-47.0) L Mean Corpuscular Volume 88 FL (80-99) Mean Corpuscular Hemoglobin 29.0 PG (27.0-31.0) Mean Corpuscular Hemoglobin Concent 33.1 G/DL (32.0-36.0) Red Cell Distribution Width 19.3 % (11.6-14.8) H Platelet Count 196 K/UL (150-450) Mean Platelet Volume 8.4 FL (6.5-10.1) Neutrophils (%) (Auto) 70.9 % (45.0-75.0) Lymphocytes (%) (Auto) 19.1 % (20.0-45.0) L Monocytes (%) (Auto) 8.9 % (1.0-10.0) Eosinophils (%) (Auto) 0.0 % (0.0-3.0) Basophils (%) (Auto) 1.1 % (0.0-2.0) Sodium Level 136 MMOL/L (136-145) Potassium Level 4.5 MMOL/L (3.5-5.1) Chloride Level 105 MMOL/L (98-107) Carbon Dioxide Level 13 MMOL/L (21-32) L Anion Gap 18 mmol/L (5-15) H Blood Urea Nitrogen 164 mg/dL (7-18) H Creatinine 11.4 MG/DL (0.55-1.30) H Estimat Glomerular Filtration Rate 4.0 mL/min (>60) Glucose Level 97 MG/DL (74-106) Calcium Level 7.0 MG/DL (8.5-10.1) L Phosphorus Level 6.9 MG/DL (2.5-4.9) H Hepatitis C Antibody Pending Troponin I 0.135 ng/mL (0.000-0.056) Test 07/31/20 20:48 POC Whole Blood Glucose 112 MG/DL (74-106) H Microbiology Date/Time Source Procedure Growth Status 07/29/20 23:17 Nasopharynx SARS-CoV-2 RdRp Gene Assay - Final Complete 07/29/20 20:40 Blood Blood Culture - Preliminary NO GROWTH AFTER 24 HOURS Resulted 07/29/20 20:25 Blood Blood Culture - Preliminary NO GROWTH AFTER 24 HOURS Resulted Assessment/Plan Assessment/Plan CKD5 Ac/chr diastolic CHF Paroxysmal atrial and ventricular arrhythmias Labile Hypertension with hypotension this afternoon. Acute myocardial ischemia and possible NSTEMI COVID 19 PNAxc HD/UF Hold hydralazine Titrate carvedilol and diltiazem dosing with "hold parameter for low HR and BP. Continue cardiac monitoring Anti-plt therapy Check lipids Serial troponin Antivirals/steroids/anticoagulation per Solo Martins MD Aug 01, 2020 02:48
[2020-08-01 04:00] VITALS: BP 130/59
[2020-08-01] MEDS: dilTIAZem HCl 60mg tab ORAL SCH ×3 (05:23→22:00)
[2020-08-01 05:48] LABS: BASOPHILS % (AUTO) 0.8 % (0.0-2.0); HEMATOCRIT 27.7 % (37.0-47.0); LYMPHOCYTES % (AUTO) 17.4 % (20.0-45.0); MEAN CORPUSCULAR VOLUME 88 FL (80-99); MONOCYTES % (AUTO) 8.8 % (1.0-10.0); NEUTROPHILS % (AUTO) 72.9 % (45.0-75.0); PLATELET COUNT 164 K/UL (150-450); RED BLOOD COUNT 3.15 M/UL (4.20-5.40); RED CELL DISTRIBUTION WIDTH 18.4 % (11.6-14.8); WHITE BLOOD COUNT 10.5 K/UL (4.8-10.8)
[2020-08-01 05:51] LABS: BLOOD UREA NITROGEN 110 mg/dL (7-18); CALCIUM 7.3 MG/DL (8.5-10.1); CARBON DIOXIDE 15 MMOL/L (21-32); CHLORIDE 105 MMOL/L (98-107); CREATININE 8.5 MG/DL (0.55-1.30); POTASSIUM 3.9 MMOL/L (3.5-5.1); SODIUM 137 MMOL/L (136-145)
[2020-08-01] MEDS: Nitroglycerin 2% oint pkt TOPIC SCH ×3 (06:07→17:44)
[2020-08-01] MEDS: NovoLOG Insulin Flexpen SUBQ SCH ×4 (06:23→21:00)
[2020-08-01 08:00] VITALS: BP 131/61
[2020-08-01] MEDS: Aspirin Baby 81mg ORAL SCH (08:19)
[2020-08-01] MEDS: dexAMETHasone 10mg/ml Inj IV SCH (08:19)
[2020-08-01] MEDS: Nephrovite tab (Rena-Vite) ORAL SCH (08:20)
[2020-08-01] MEDS: Heparin 5000 units/ml inj SUBQ SCH ×2 (08:23→22:23)
--- NOTE | 2020-08-01 08:57 | Nephrology Progress Note ---
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 (4) Nephrotic syndrome (5) End-stage renal disease (6) CHF (congestive heart failure), NYHA class II (7) Metabolic acidosis (8) Suspected 2019 novel coronavirus infection (9) Pneumonia (10) Hypotension (11) Angina at rest Plan d/w consultants, dexamethasone, antibiotics, ivernectin, dialysis cath and start HD 07/31, on 07/31 episode of hypotension and afib, nonsustained vtach, bp better with fluids, bp meds stopped for now, better 08/01 on cardizem , nsr with pvc's , HD 08/01 d/w dr ge Subjective Constitutional: Reports: weakness HEENT: Reports: no symptoms Genitourinary: Reports: incontinence Neurologic/Psychiatric: Reports: pre-existing deficit Subjective mild cough, no chest pain Objective Objective Last 24 Hour Vital Signs Date Time Temp Pulse Resp B/P (MAP) Pulse Ox O2 Delivery O2 Flow Rate FiO2 08/01/20 06:07 133/50 08/01/20 05:23 54 133/50 08/01/20 04:00 98.7 54 20 130/59 (82) 99 08/01/20 04:00 52 08/01/20 00:00 98.7 65 20 159/60 (93) 99 08/01/20 00:00 64 07/31/20 23:17 65 159/60 07/31/20 23:17 159/60 07/31/20 21:00 Nasal Cannula 3.0 07/31/20 20:35 98 146/62 07/31/20 20:00 109 07/31/20 20:00 98.7 98 20 146/62 (90) 99 07/31/20 16:00 97.8 98 20 100/58 (72) 99 07/31/20 16:00 96 07/31/20 13:19 136/81 07/31/20 13:18 136/81 07/31/20 12:00 98.7 67 19 136/81 (99) 97 07/31/20 12:00 58 07/31/20 09:11 130/56 07/31/20 09:11 67 130/56 07/31/20 09:00 130/56 07/31/20 09:00 Nasal Cannula 3.0 Intake and Output 07/31/20 08/01/20 19:00 07:00 Intake Total 360 ml 240 ml Output Total 1500 ml Balance 360 ml -1260 ml Intake Oral 360 ml 240 ml Output Hemodialysis UF 1500 ml # Bowel Movements 1 3 Laboratory Tests 07/31/20 16:40: POC Whole Blood Glucose 134H 07/31/20 17:50: Troponin I 0.135H 07/31/20 20:48: POC Whole Blood Glucose 112H 08/01/20 04:30: Troponin I [Pending], White Blood Count 10.5, Red Blood Count 3.15L, Hemoglobin 9.0L, Hematocrit 27.7L, Mean Corpuscular Volume 88, Mean Corpuscular Hemoglobin 28.7, Mean Corpuscular Hemoglobin Concent 32.5, Red Cell Distribution Width 18.4H, Platelet Count 164, Mean Platelet Volume 8.4, Neutrophils (%) (Auto) 72.9, Lymphocytes (%) (Auto) 17.4L, Monocytes (%) (Auto) 8.8, Eosinophils (%) (Auto) 0.0, Basophils (%) (Auto) 0.8, Sodium Level 137, Potassium Level 3.9, Chloride Level 105, Carbon Dioxide Level 15L, Blood Urea Nitrogen 110H, Creatinine 8.5H, Estimat Glomerular Filtration Rate 5.7, Glucose Level 72L, Calcium Level 7.3L 08/01/20 06:15: POC Whole Blood Glucose 69L 08/01/20 06:22: POC Whole Blood Glucose 76 Height (Feet): 5 Height (Inches): 2.00 Weight (Pounds): 189 General Appearance: no apparent distress, obese EENT: normal ENT inspection Neck: normal alignment Cardiovascular: regularly irregular Respiratory/Chest: lungs clear Abdomen: non tender Extremities: moderate edema 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
[2020-08-01] MEDS ORDERED: Heparin Sod 1000 units/ml 10ml IV PRN (09:00)
[2020-08-01] MEDS: Carvedilol 25mg Tab ORAL SCH ×2 (10:34→22:19)
--- NOTE | 2020-08-01 10:38 | Infectious Diseases Prog Note ---
Assessment/Plan Assessment/Plan A 1. COVID19 pneumonia. s/p ivermectin 2. Diabetes. 3. Hypertension. 4. Renal failure, ESRD 5. COPD. P 1. continue Decadron day 4 2. will follow up cultures 3. continue isolation Subjective ROS Limited/Unobtainable: Yes Constitutional: Reports: other - feels sick Allergies: Coded Allergies: No Known Allergies (Unverified , 07/29/20) Objective Last 24 Hour Vital Signs Date Time Temp Pulse Resp B/P (MAP) Pulse Ox O2 Delivery O2 Flow Rate FiO2 08/01/20 09:00 Nasal Cannula 3.0 08/01/20 08:00 58 08/01/20 08:00 98.4 76 21 131/61 (84) 98 08/01/20 06:07 133/50 08/01/20 05:23 54 133/50 08/01/20 04:00 98.7 54 20 130/59 (82) 99 08/01/20 04:00 52 08/01/20 00:00 98.7 65 20 159/60 (93) 99 08/01/20 00:00 64 07/31/20 23:17 65 159/60 07/31/20 23:17 159/60 07/31/20 21:00 Nasal Cannula 3.0 07/31/20 20:35 98 146/62 07/31/20 20:00 109 07/31/20 20:00 98.7 98 20 146/62 (90) 99 07/31/20 16:00 97.8 98 20 100/58 (72) 99 07/31/20 16:00 96 07/31/20 13:19 136/81 07/31/20 13:18 136/81 07/31/20 12:00 98.7 67 19 136/81 (99) 97 07/31/20 12:00 58 Height (Feet): 5 Height (Inches): 2.00 Weight (Pounds): 189 HEENT: mucous membranes moist Respiratory/Chest: lungs clear, other - oxygen by nasal cannula Cardiovascular: normal rate, bradycardia, other - RIJ HD catheter Abdomen: soft, non tender Extremities: other - legs edema Neurologic/Psychiatric: alert, responsive Microbiology Date/Time Source Procedure Growth Status 07/29/20 23:17 Nasopharynx SARS-CoV-2 RdRp Gene Assay - Final Complete 07/29/20 22:30 Rectum - Final NO CARBAPENEM-RESISTANT ENTEROBACTERI... Complete 07/29/20 22:30 Rectum VRE Culture - Final Enterococcus Faecalis - Vre Complete 07/29/20 20:40 Blood Blood Culture - Preliminary NO GROWTH AFTER 48 HOURS Resulted 07/29/20 20:25 Blood Blood Culture - Preliminary NO GROWTH AFTER 48 HOURS Resulted Laboratory Tests Test 07/31/20 16:40 07/31/20 17:50 07/31/20 20:48 08/01/20 04:30 POC Whole Blood Glucose 134 MG/DL (74-106) H 112 MG/DL (74-106) H Troponin I 0.135 ng/mL (0.000-0.056) 0.238 ng/mL (0.000-0.056) White Blood Count 10.5 K/UL (4.8-10.8) Red Blood Count 3.15 M/UL (4.20-5.40) L Hemoglobin 9.0 G/DL (12.0-16.0) L Hematocrit 27.7 % (37.0-47.0) L Mean Corpuscular Volume 88 FL (80-99) Mean Corpuscular Hemoglobin 28.7 PG (27.0-31.0) Mean Corpuscular Hemoglobin Concent 32.5 G/DL (32.0-36.0) Red Cell Distribution Width 18.4 % (11.6-14.8) H Platelet Count 164 K/UL (150-450) Mean Platelet Volume 8.4 FL (6.5-10.1) Neutrophils (%) (Auto) 72.9 % (45.0-75.0) Lymphocytes (%) (Auto) 17.4 % (20.0-45.0) L Monocytes (%) (Auto) 8.8 % (1.0-10.0) Eosinophils (%) (Auto) 0.0 % (0.0-3.0) Basophils (%) (Auto) 0.8 % (0.0-2.0) Sodium Level 137 MMOL/L (136-145) Potassium Level 3.9 MMOL/L (3.5-5.1) Chloride Level 105 MMOL/L (98-107) Carbon Dioxide Level 15 MMOL/L (21-32) L Blood Urea Nitrogen 110 mg/dL (7-18) H Creatinine 8.5 MG/DL (0.55-1.30) H Estimat Glomerular Filtration Rate 5.7 mL/min (>60) Glucose Level 72 MG/DL (74-106) L Calcium Level 7.3 MG/DL (8.5-10.1) L Total Creatine Kinase Pending Test 08/01/20 06:15 08/01/20 06:22 POC Whole Blood Glucose 69 MG/DL (74-106) L 76 MG/DL (74-106) Current Medications Medications (Trade) Dose Ordered Sig/Andrew Route PRN Reason Start Time Stop Time Status Last Admin Dose Admin Acetaminophen (Tylenol) 650 mg Q4H PRN ORAL Mild Pain (Pain Scale 1-3) 07/29/20 22:45 08/28/20 22:44 Acetaminophen (Tylenol) 650 mg Q4H PRN ORAL Temp >100.5 07/29/20 22:45 08/28/20 22:44 Aspirin (ASA) 81 mg DAILY ORAL 07/30/20 09:00 09/13/20 08:59 08/01/20 08:19 Atorvastatin Calcium (Lipitor) 80 mg BEDTIME ORAL 07/30/20 21:00 10/28/20 20:59 07/31/20 20:30 Budesonide/ Formoterol Fumarate (Symbicort 160/ 4.5) 2 puff BIDRT INH 07/30/20 10:00 10/28/20 09:59 07/31/20 21:05 Carvedilol (Coreg) 25 mg EVERY 12 HOURS ORAL 07/31/20 21:00 08/30/20 20:59 07/31/20 20:35 Chlorhexidine Gluconate (Brittany-Hex 2%) 1 applic DAILY@1999 TOPIC 08/01/20 20:00 10/30/20 19:59 Dexamethasone Sodium Phosphate (Decadron 10mg/ ml Inj) 6 mg DAILY IV 07/30/20 09:00 08/09/20 08:59 08/01/20 08:19 Dextrose (Dextrose 50%) 25 ml Q30M PRN IV Hypoglycemia 07/30/20 12:30 10/28/20 12:29 Dextrose (Dextrose 50%) 50 ml Q30M PRN IV Hypoglycemia 07/30/20 12:30 10/28/20 12:29 Diltiazem HCl (Cardizem Tab) 60 mg EVERY 8 HOURS ORAL 08/01/20 06:00 08/31/20 05:59 Diphenhydramine HCl (Benadryl) 25 mg Q6H PRN ORAL Itching 07/29/20 22:45 08/28/20 22:44 Epoetin Matthew (Epoetin Matthew(ESRD on dialysis)) 3,000 unit SUBQ 08/02/20 21:00 10/31/20 20:59 Epoetin Matthew (Epoetin Matthew(ESRD on dialysis)) 4,000 unit WED- SUBQ 08/02/20 21:00 10/31/20 20:59 Escitalopram Oxalate (Lexapro) 10 mg DAILY ORAL 07/30/20 09:00 08/29/20 08:59 08/01/20 08:20 Famotidine (Pepcid) 20 mg DAILY ORAL 07/30/20 09:00 10/28/20 08:59 08/01/20 08:20 Guaifenesin (Robitussin) 200 mg Q4H PRN ORAL FOR COUGH 07/29/20 22:45 10/27/20 22:44 Heparin Sodium (Porcine) (Heparin 5000 units/ml) 5,000 units EVERY 12 HOURS SUBQ 07/30/20 09:00 09/13/20 08:59 08/01/20 08:23 Heparin Sodium (Porcine) (Heparin Sod 1000 units/ml 10ml) 2,000 unit ONCE PRN IV dialysis 08/01/20 09:00 08/02/20 23:59 Insulin Aspart (NovoLOG) BEFORE MEALS AND HS SUBQ 07/30/20 16:30 10/28/20 16:29 07/30/20 16:45 Lactulose (Cephulac) 30 gm BIDLS ORAL 07/30/20 11:30 08/29/20 11:29 07/31/20 17:11 Nitroglycerin (Nitro-Bid) 1 inch EVERY 6 HOURS TOPIC 08/01/20 00:00 08/31/20 00:00 08/01/20 06:07 Nitroglycerin (Ntg) 0.4 mg Q5M PRN SL Prn Chest Pain 07/29/20 22:45 08/28/20 22:44 Ondansetron HCl (Zofran) 4 mg Q4H PRN IVP Nausea & Vomiting 07/29/20 22:45 08/28/20 22:44 Polyethylene Glycol (Miralax) 17 gm DAILYPRN PRN ORAL Constipation 07/29/20 22:45 08/28/20 22:44 Sennosides (Senokot) 8.6 mg QHS ORAL 07/30/20 21:00 08/29/20 20:59 07/31/20 20:31 Sevelamer Carbonate (Renvela) 800 mg THREE TIMES A DAY ORAL 08/01/20 09:30 10/30/20 09:29 Sodium Chloride 1,000 ml @ 500 mls/hr Q2H PRN IVLG sbp<90 during hd 08/01/20 09:00 08/02/20 23:59 Trazodone HCl (Desyrel) 100 mg BEDTIME ORAL 07/30/20 21:00 08/29/20 20:59 07/31/20 20:30 Vitamin B Complex/ Vit C/Folic Acid (Nephrovite) 1 tab DAILY ORAL 07/30/20 09:00 08/29/20 08:59 08/01/20 08:20 Saad Toledo MD Aug 01, 2020 10:38
[2020-08-01] MEDS: Lactulose 10gm/15ml UDC ORAL SCH ×2 (10:39→16:30)
[2020-08-01 12:00] VITALS: BP 150/58
[2020-08-01 13:06] LABS: CREATINE KINASE 87 U/L (26-308)
[2020-08-01 16:00] VITALS: BP 131/81
[2020-08-01 20:00] VITALS: BP 138/58
[2020-08-01] MEDS: Atorvastatin 80mg tab ORAL SCH (22:19)
[2020-08-01] MEDS: TraZODone 100mg tab ORAL SCH (22:19)
[2020-08-01] MEDS: Sennosides 8.6mg tab ORAL SCH (22:20)
[2020-08-01] MEDS: Dyna-Hex 2% Top Sol 2oz TOPIC SCH (22:20)
--- NOTE | 2020-08-01 23:58 | Cardiology Progress Note ---
Subjective DATE OF SERVICE: Aug 01, 2020 BP parameters less labile. No CP No c/o SOB. Starting HD/UF Monitor with sinus bradycardia to 50's; episode of Atrial Fibrillation and Non Sustained Ventric tach yesterday, with less ectopy today Troponin increased to 0.235 Objective Last 24 Hour Vital Signs Date Time Temp Pulse Resp B/P (MAP) Pulse Ox O2 Delivery O2 Flow Rate FiO2 08/01/20 22:19 62 138/57 08/01/20 22:00 58 138/57 08/01/20 21:00 Nasal Cannula 3.0 08/01/20 17:44 131/81 08/01/20 16:00 65 08/01/20 16:00 98.7 71 22 131/81 (98) 99 08/01/20 14:00 54 150/58 08/01/20 12:42 150/58 08/01/20 12:00 54 08/01/20 12:00 98.1 55 20 150/58 (88) 98 08/01/20 10:34 58 131/61 08/01/20 09:00 Nasal Cannula 3.0 08/01/20 08:00 58 08/01/20 08:00 98.4 76 21 131/61 (84) 98 08/01/20 06:07 133/50 08/01/20 05:23 54 133/50 08/01/20 04:00 98.7 54 20 130/59 (82) 99 08/01/20 04:00 52 08/01/20 00:00 98.7 65 20 159/60 (93) 99 08/01/20 00:00 64 HEENT: normal ENT inspection RHYTHM: NSR, Afib, VT LUNGS: rales bilaterally CARDIAC: normal rate, regular rhythm, normal S1 and S2 ABDOMEN: normal bowel sounds, non tender, no organomegaly EXTREMITIES: normal range of motion, non-tender, +1 edema Laboratory Tests Test 08/01/20 04:30 08/01/20 06:15 08/01/20 06:22 08/01/20 16:32 White Blood Count 10.5 K/UL (4.8-10.8) Red Blood Count 3.15 M/UL (4.20-5.40) L Hemoglobin 9.0 G/DL (12.0-16.0) L Hematocrit 27.7 % (37.0-47.0) L Mean Corpuscular Volume 88 FL (80-99) Mean Corpuscular Hemoglobin 28.7 PG (27.0-31.0) Mean Corpuscular Hemoglobin Concent 32.5 G/DL (32.0-36.0) Red Cell Distribution Width 18.4 % (11.6-14.8) H Platelet Count 164 K/UL (150-450) Mean Platelet Volume 8.4 FL (6.5-10.1) Neutrophils (%) (Auto) 72.9 % (45.0-75.0) Lymphocytes (%) (Auto) 17.4 % (20.0-45.0) L Monocytes (%) (Auto) 8.8 % (1.0-10.0) Eosinophils (%) (Auto) 0.0 % (0.0-3.0) Basophils (%) (Auto) 0.8 % (0.0-2.0) Sodium Level 137 MMOL/L (136-145) Potassium Level 3.9 MMOL/L (3.5-5.1) Chloride Level 105 MMOL/L (98-107) Carbon Dioxide Level 15 MMOL/L (21-32) L Blood Urea Nitrogen 110 mg/dL (7-18) H Creatinine 8.5 MG/DL (0.55-1.30) H Estimat Glomerular Filtration Rate 5.7 mL/min (>60) Glucose Level 72 MG/DL (74-106) L Calcium Level 7.3 MG/DL (8.5-10.1) L Total Creatine Kinase 87 U/L (26-308) Troponin I 0.238 ng/mL (0.000-0.056) POC Whole Blood Glucose 69 MG/DL (74-106) L 76 MG/DL (74-106) Pending Test 08/01/20 21:16 POC Whole Blood Glucose 77 MG/DL (74-106) Assessment/Plan Assessment/Plan CKD5 Ac/chr diastolic CHF Paroxysmal atrial and ventricular arrhythmias Labile Hypertension with hypotension this afternoon. Acute myocardial ischemia and probable NSTEMI COVID 19 PNAxc Sinus bradycardia HD/UF Hold hydralazine Titrating carvedilol and diltiazem dosing further, with "hold parameter for low HR and BP. Continue cardiac monitoring Anti-plt therapy Serial troponin Antivirals/steroids/anticoagulation per ID Check lipids Luis,Solo MD Aug 01, 2020 23:58
[2020-08-02] VITALS: BP 155/57
[2020-08-02 04:00] VITALS: BP 157/62
[2020-08-02] MEDS: dilTIAZem HCl 60mg tab ORAL SCH ×3 (05:32→22:39)
[2020-08-02] MEDS: Nitroglycerin 2% oint pkt TOPIC SCH ×3 (05:32→17:33)
[2020-08-02] MEDS: NovoLOG Insulin Flexpen SUBQ SCH ×4 (06:30→21:00)
[2020-08-02 08:00] VITALS: BP 155/72
[2020-08-02] MEDS ORDERED: Heparin Sod 1000 units/ml 10ml IV PRN (09:00)
[2020-08-02 09:38] LABS: BASOPHILS % (AUTO) 0.6 % (0.0-2.0); EOSINOPHILS % (AUTO) 0.3 % (0.0-3.0); HEMATOCRIT 30.2 % (37.0-47.0); HEMOGLOBIN 9.6 G/DL (12.0-16.0); LYMPHOCYTES % (AUTO) 21.4 % (20.0-45.0); MEAN CORPUSCULAR VOLUME 88 FL (80-99); MONOCYTES % (AUTO) 10.4 % (1.0-10.0); NEUTROPHILS % (AUTO) 67.3 % (45.0-75.0); PLATELET COUNT 132 K/UL (150-450); RED BLOOD COUNT 3.44 M/UL (4.20-5.40); RED CELL DISTRIBUTION WIDTH 18.8 % (11.6-14.8); WHITE BLOOD COUNT 10.9 K/UL (4.8-10.8)
[2020-08-02] MEDS: Aspirin Baby 81mg ORAL SCH (09:58)
[2020-08-02] MEDS: Nephrovite tab (Rena-Vite) ORAL SCH (09:59)
[2020-08-02 10:00] LABS: CALCIUM 7.2 MG/DL (8.5-10.1); CREATINE KINASE 78 U/L (26-140); CREATININE 5.7 MG/DL (0.55-1.30); PHOSPHORUS 3.4 MG/DL (2.5-4.9); POTASSIUM 3.2 MMOL/L (3.5-5.1)
[2020-08-02] MEDS: Carvedilol 25mg Tab ORAL SCH ×2 (10:00→22:40)
[2020-08-02] MEDS: Heparin 5000 units/ml inj SUBQ SCH ×2 (10:00→21:00)
[2020-08-02] MEDS: dexAMETHasone 10mg/ml Inj IV SCH (10:01)
[2020-08-02 10:16] LABS: CHOLESTEROL 138 MG/DL (< 200); CKMB 0.7 NG/ML (0.0-3.6); HDL CHOLESTEROL 38 MG/DL (40-60); TRIGLYCERIDES 75 MG/DL (30-150)
[2020-08-02] MEDS: Lactulose 10gm/15ml UDC ORAL SCH ×2 (10:33→15:39)
--- NOTE | 2020-08-02 11:07 | Infectious Diseases Prog Note ---
"Assessment/Plan Assessment/Plan antibiotics : none A 1. 1. COVID-19 pneumonia. She is on 3 liters of oxygen with 98% saturation. s/p ivermectin 2. Diabetes. 3. Hypertension. 4. Renal failure. 5. COPD. 6. proteus | gram negative UTI P 1. continue decadron day 5 2. start ceftriaxone 3. will follow up cultures 4. continue isolation Subjective Constitutional: Denies: fever, chills Respiratory: Denies: shortness of breath, dry cough Gastrointestinal/Abdominal: Reports: nausea; Denies: vomiting, diarrhea Musculoskeletal: Denies: pain Allergies: Coded Allergies: No Known Allergies (Unverified , 07/29/20) Objective Last 24 Hour Vital Signs Date Time Temp Pulse Resp B/P (MAP) Pulse Ox O2 Delivery O2 Flow Rate FiO2 08/02/20 05:32 156/70 08/02/20 05:32 62 156/70 08/02/20 04:00 62 08/02/20 04:00 98.2 61 17 157/62 (93) 97 08/02/20 00:00 61 08/02/20 00:00 98.0 60 17 155/57 (89) 97 08/01/20 22:19 62 138/57 08/01/20 22:00 58 138/57 08/01/20 21:00 Nasal Cannula 3.0 08/01/20 20:00 98.4 58 17 138/58 (84) 97 08/01/20 20:00 60 08/01/20 17:44 131/81 08/01/20 16:00 65 08/01/20 16:00 98.7 71 22 131/81 (98) 99 08/01/20 14:00 54 150/58 08/01/20 12:42 150/58 08/01/20 12:00 54 08/01/20 12:00 98.1 55 20 150/58 (88) 98 Height (Feet): 5 Height (Inches): 2.00 Weight (Pounds): 189 Laboratory Tests Test 08/01/20 16:32 08/01/20 21:16 08/02/20 09:20 POC Whole Blood Glucose Pending 77 MG/DL (74-106) White Blood Count 10.9 K/UL (4.8-10.8) H Red Blood Count 3.44 M/UL (4.20-5.40) L Hemoglobin 9.6 G/DL (12.0-16.0) L Hematocrit 30.2 % (37.0-47.0) L Mean Corpuscular Volume 88 FL (80-99) Mean Corpuscular Hemoglobin 28.0 PG (27.0-31.0) Mean Corpuscular Hemoglobin Concent 31.9 G/DL (32.0-36.0) L Red Cell Distribution Width 18.8 % (11.6-14.8) H Platelet Count 132 K/UL (150-450) L Mean Platelet Volume 8.4 FL (6.5-10.1) Neutrophils (%) (Auto) 67.3 % (45.0-75.0) Lymphocytes (%) (Auto) 21.4 % (20.0-45.0) Monocytes (%) (Auto) 10.4 % (1.0-10.0) H Eosinophils (%) (Auto) 0.3 % (0.0-3.0) Basophils (%) (Auto) 0.6 % (0.0-2.0) Sodium Level 134 MMOL/L (136-145) L Potassium Level 3.2 MMOL/L (3.5-5.1) L Chloride Level 101 MMOL/L (98-107) Carbon Dioxide Level 25 MMOL/L (21-32) Anion Gap 8 mmol/L (5-15) Blood Urea Nitrogen 63 mg/dL (7-18) H Creatinine 5.7 MG/DL (0.55-1.30) H Estimat Glomerular Filtration Rate 8.8 mL/min (>60) Glucose Level 85 MG/DL (74-106) Calcium Level 7.2 MG/DL (8.5-10.1) L Phosphorus Level 3.4 MG/DL (2.5-4.9) Total Creatine Kinase 78 U/L (26-140) Creatine Kinase MB 0.7 NG/ML (0.0-3.6) Troponin I 0.206 ng/mL (0.000-0.056) Triglycerides Level 75 MG/DL (30-150) Cholesterol Level 138 MG/DL (< 200) LDL Cholesterol 76 mg/dL (<100) HDL Cholesterol 38 MG/DL (40-60) L Cholesterol/HDL Ratio 3.6 (3.3-4.4) Current Medications Medications (Trade) Dose Ordered Sig/Andrew Route PRN Reason Start Time Stop Time Status Last Admin Dose Admin Acetaminophen (Tylenol) 650 mg Q4H PRN ORAL Mild Pain (Pain Scale 1-3) 07/29/20 22:45 08/28/20 22:44 Acetaminophen (Tylenol) 650 mg Q4H PRN ORAL Temp >100.5 07/29/20 22:45 08/28/20 22:44 Aspirin (ASA) 81 mg DAILY ORAL 07/30/20 09:00 09/13/20 08:59 08/02/20 09:58 Atorvastatin Calcium (Lipitor) 80 mg BEDTIME ORAL 07/30/20 21:00 10/28/20 20:59 08/01/20 22:19 Budesonide/ Formoterol Fumarate (Symbicort 160/ 4.5) 2 puff BIDRT INH 07/30/20 10:00 10/28/20 09:59 08/02/20 10:39 Carvedilol (Coreg) 25 mg EVERY 12 HOURS ORAL 07/31/20 21:00 08/30/20 20:59 08/01/20 22:19 Chlorhexidine Gluconate (Brittany-Hex 2%) 1 applic DAILY@1999 TOPIC 08/01/20 20:00 10/30/20 19:59 08/01/20 22:20 Dexamethasone Sodium Phosphate (Decadron 10mg/ ml Inj) 6 mg DAILY IV 07/30/20 09:00 08/09/20 08:59 08/02/20 10:01 Dextrose (Dextrose 50%) 25 ml Q30M PRN IV Hypoglycemia 07/30/20 12:30 10/28/20 12:29 Dextrose (Dextrose 50%) 50 ml Q30M PRN IV Hypoglycemia 07/30/20 12:30 10/28/20 12:29 Diltiazem HCl (Cardizem Tab) 30 mg EVERY 8 HOURS ORAL 08/02/20 06:00 09/01/20 05:59 08/02/20 05:32 Diphenhydramine HCl (Benadryl) 25 mg Q6H PRN ORAL Itching 07/29/20 22:45 08/28/20 22:44 Epoetin Matthew (Epoetin Matthew(ESRD on dialysis)) 3,000 unit MON-WED-WED SUBQ 08/02/20 21:00 10/31/20 20:59 Epoetin Matthew (Epoetin Matthew(ESRD on dialysis)) 4,000 unit WED- SUBQ 08/02/20 21:00 10/31/20 20:59 Escitalopram Oxalate (Lexapro) 10 mg DAILY ORAL 07/30/20 09:00 08/29/20 08:59 08/02/20 09:59 Famotidine (Pepcid) 20 mg DAILY ORAL 07/30/20 09:00 10/28/20 08:59 08/02/20 09:58 Guaifenesin (Robitussin) 200 mg Q4H PRN ORAL FOR COUGH 07/29/20 22:45 10/27/20 22:44 Heparin Sodium (Porcine) (Heparin 5000 units/ml) 5,000 units EVERY 12 HOURS SUBQ 07/30/20 09:00 09/13/20 08:59 08/01/20 22:23 Heparin Sodium (Porcine) (Heparin Sod 1000 units/ml 10ml) 2,000 unit ONCE PRN IV dialysis 08/01/20 09:00 08/02/20 23:59 Insulin Aspart (NovoLOG) BEFORE MEALS AND HS SUBQ 07/30/20 16:30 10/28/20 16:29 07/30/20 16:45 Lactulose (Cephulac) 30 gm BIDLS ORAL 07/30/20 11:30 08/29/20 11:29 08/02/20 10:33 Nitroglycerin (Nitro-Bid) 1 inch TID@0600,1200,1800 TOPIC 08/02/20 06:00 09/01/20 05:59 08/02/20 05:32 Nitroglycerin (Ntg) 0.4 mg Q5M PRN SL Prn Chest Pain 07/29/20 22:45 08/28/20 22:44 Ondansetron HCl (Zofran) 4 mg Q4H PRN IVP Nausea & Vomiting 07/29/20 22:45 08/28/20 22:44 08/02/20 10:34 Polyethylene Glycol (Miralax) 17 gm DAILYPRN PRN ORAL Constipation 07/29/20 22:45 08/28/20 22:44 Sennosides (Senokot) 8.6 mg QHS ORAL 07/30/20 21:00 08/29/20 20:59 08/01/20 22:20 Sevelamer Carbonate (Renvela) 800 mg THREE TIMES A DAY ORAL 08/01/20 09:30 10/30/20 09:29 08/02/20 09:58 Sodium Chloride 1,000 ml @ 500 mls/hr Q2H PRN IVLG sbp<90 during hd 08/01/20 09:00 08/02/20 23:59 Trazodone HCl (Desyrel) 100 mg BEDTIME ORAL 07/30/20 21:00 08/29/20 20:59 08/01/20 22:19 Vitamin B Complex/ Vit C/Folic Acid (Nephrovite) 1 tab DAILY ORAL 07/30/20 09:00 08/29/20 08:59 08/02/20 09:59 Joyce Laurent MD Aug 02, 2020 11:07"
[2020-08-02 12:00] VITALS: BP 179/75
--- NOTE | 2020-08-02 12:03 | Cardiology Progress Note ---
Subjective DATE OF SERVICE: Aug 02, 2020 BP parameters controlled; mild elevations at times. No CP No c/o SOB. Continues with HD/UF Monitor with sinus bradycardia - high 50's now; no new episodes of Atrial Fi brillation or Non Sustained Ventric tach. yesterday. Mild Troponin elevations persist; CK/CKMB normal Objective Last 24 Hour Vital Signs Date Time Temp Pulse Resp B/P (MAP) Pulse Ox O2 Delivery O2 Flow Rate FiO2 08/02/20 05:32 156/70 08/02/20 05:32 62 156/70 08/02/20 04:00 62 08/02/20 04:00 98.2 61 17 157/62 (93) 97 08/02/20 00:00 61 08/02/20 00:00 98.0 60 17 155/57 (89) 97 08/01/20 22:19 62 138/57 08/01/20 22:00 58 138/57 08/01/20 21:00 Nasal Cannula 3.0 08/01/20 20:00 98.4 58 17 138/58 (84) 97 08/01/20 20:00 60 08/01/20 17:44 131/81 08/01/20 16:00 65 08/01/20 16:00 98.7 71 22 131/81 (98) 99 08/01/20 14:00 54 150/58 08/01/20 12:42 150/58 08/01/20 12:00 54 08/01/20 12:00 98.1 55 20 150/58 (88) 98 HEENT: normal ENT inspection RHYTHM: NSR, Afib, VT LUNGS: rales bilaterally CARDIAC: normal rate, regular rhythm, normal S1 and S2 ABDOMEN: normal bowel sounds, non tender, no organomegaly EXTREMITIES: normal range of motion, non-tender, +1 edema Laboratory Tests Test 08/01/20 16:32 08/01/20 21:16 08/02/20 09:20 POC Whole Blood Glucose Pending 77 MG/DL (74-106) White Blood Count 10.9 K/UL (4.8-10.8) H Red Blood Count 3.44 M/UL (4.20-5.40) L Hemoglobin 9.6 G/DL (12.0-16.0) L Hematocrit 30.2 % (37.0-47.0) L Mean Corpuscular Volume 88 FL (80-99) Mean Corpuscular Hemoglobin 28.0 PG (27.0-31.0) Mean Corpuscular Hemoglobin Concent 31.9 G/DL (32.0-36.0) L Red Cell Distribution Width 18.8 % (11.6-14.8) H Platelet Count 132 K/UL (150-450) L Mean Platelet Volume 8.4 FL (6.5-10.1) Neutrophils (%) (Auto) 67.3 % (45.0-75.0) Lymphocytes (%) (Auto) 21.4 % (20.0-45.0) Monocytes (%) (Auto) 10.4 % (1.0-10.0) H Eosinophils (%) (Auto) 0.3 % (0.0-3.0) Basophils (%) (Auto) 0.6 % (0.0-2.0) Sodium Level 134 MMOL/L (136-145) L Potassium Level 3.2 MMOL/L (3.5-5.1) L Chloride Level 101 MMOL/L (98-107) Carbon Dioxide Level 25 MMOL/L (21-32) Anion Gap 8 mmol/L (5-15) Blood Urea Nitrogen 63 mg/dL (7-18) H Creatinine 5.7 MG/DL (0.55-1.30) H Estimat Glomerular Filtration Rate 8.8 mL/min (>60) Glucose Level 85 MG/DL (74-106) Calcium Level 7.2 MG/DL (8.5-10.1) L Phosphorus Level 3.4 MG/DL (2.5-4.9) Total Creatine Kinase 78 U/L (26-140) Creatine Kinase MB 0.7 NG/ML (0.0-3.6) Troponin I 0.206 ng/mL (0.000-0.056) Triglycerides Level 75 MG/DL (30-150) Cholesterol Level 138 MG/DL (< 200) LDL Cholesterol 76 mg/dL (<100) HDL Cholesterol 38 MG/DL (40-60) L Cholesterol/HDL Ratio 3.6 (3.3-4.4) Assessment/Plan Assessment/Plan CKD5 Ac/chr diastolic CHF Paroxysmal atrial and ventricular arrhythmias Labile Hypertension with hypotension this afternoon. Chronic myocardial ischemia and probable NSTEMI COVID 19 PNAxc Sinus bradycardia due to meds. HD/UF Titrating carvedilol and diltiazem dosing as needed, with "hold parameter for low HR and BP. Continue cardiac monitoring Anti-plt therapy Serial troponin Antivirals/steroids/anticoagulation per ID Will ultimately need myocardial perfusion scan - as outpatient, once Covid 19 resolved. Solo Smith MD Aug 02, 2020 12:03
[2020-08-02] MEDS: cefTRIAXone 1 GM in D5W 55 ML IVPB SCH (12:08)
--- NOTE | 2020-08-02 12:40 | Nephrology Progress Note ---
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 (4) Nephrotic syndrome (5) End-stage renal disease (6) CHF (congestive heart failure), NYHA class II (7) Metabolic acidosis (8) Suspected 2019 novel coronavirus infection (9) Pneumonia (10) Hypotension (11) Angina at rest Plan d/w consultants, dexamethasone, antibiotics, ivernectin, dialysis cath and start HD 07/31, on 07/31 episode of hypotension and afib, nonsustained vtach, bp better with fluids, bp meds stopped for now, better 08/01 on cardizem , nsr with pvc's , HD 08/01+08/02 d/w dr ge+maddie Subjective Constitutional: Reports: weakness HEENT: Reports: no symptoms Genitourinary: Reports: no symptoms Neurologic/Psychiatric: Reports: no symptoms Subjective mild cough, no chest pain,+nausea Objective Objective Last 24 Hour Vital Signs Date Time Temp Pulse Resp B/P (MAP) Pulse Ox O2 Delivery O2 Flow Rate FiO2 08/02/20 12:09 179/75 08/02/20 05:32 156/70 08/02/20 05:32 62 156/70 08/02/20 04:00 62 08/02/20 04:00 98.2 61 17 157/62 (93) 97 08/02/20 00:00 61 08/02/20 00:00 98.0 60 17 155/57 (89) 97 08/01/20 22:19 62 138/57 08/01/20 22:00 58 138/57 08/01/20 21:00 Nasal Cannula 3.0 08/01/20 20:00 98.4 58 17 138/58 (84) 97 08/01/20 20:00 60 08/01/20 17:44 131/81 08/01/20 16:00 65 08/01/20 16:00 98.7 71 22 131/81 (98) 99 08/01/20 14:00 54 150/58 08/01/20 12:42 150/58 Intake and Output 08/01/20 08/02/20 19:00 07:00 Intake Total 150 ml 120 ml Output Total 1000 ml Balance -850 ml 120 ml Intake Oral 150 ml 120 ml Output Hemodialysis UF 1000 ml # Voids 1 # Bowel Movements 2 Laboratory Tests 08/01/20 16:32: POC Whole Blood Glucose [Pending] 08/01/20 21:16: POC Whole Blood Glucose 77 08/02/20 09:20: White Blood Count 10.9H, Red Blood Count 3.44L, Hemoglobin 9.6L, Hematocrit 30.2L, Mean Corpuscular Volume 88, Mean Corpuscular Hemoglobin 28.0, Mean Corpuscular Hemoglobin Concent 31.9L, Red Cell Distribution Width 18.8H, Platelet Count 132L, Mean Platelet Volume 8.4, Neutrophils (%) (Auto) 67.3, Lymphocytes (%) (Auto) 21.4, Monocytes (%) (Auto) 10.4H, Eosinophils (%) (Auto) 0.3, Basophils (%) (Auto) 0.6, Sodium Level 134L, Potassium Level 3.2L, Chloride Level 101, Carbon Dioxide Level 25, Anion Gap 8, Blood Urea Nitrogen 63H, Creatinine 5.7H, Estimat Glomerular Filtration Rate 8.8, Glucose Level 85, Calcium Level 7.2L, Phosphorus Level 3.4, Total Creatine Kinase 78, Creatine Kinase MB 0.7, Troponin I 0.206H, Triglycerides Level 75, Cholesterol Level 138, LDL Cholesterol 76, HDL Cholesterol 38L, Cholesterol/HDL Ratio 3.6 Height (Feet): 5 Height (Inches): 2.00 Weight (Pounds): 189 General Appearance: obese EENT: normal ENT inspection Neck: normal alignment Cardiovascular: normal rate, regular rhythm Respiratory/Chest: lungs clear Extremities: moderate edema 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
--- NOTE | 2020-08-02 13:18 | Cardiology Report ---
APPROVED REPORT EKG Measurement Heart [id number] <Conclusion> Sinus rhythm with frequent premature ventricular complexes Possible Left atrial enlargement Low voltage QRS Incomplete right bundle branch block Cannot rule out Anteroseptal infarct, age undetermined Abnormal ECG
[2020-08-02 16:00] VITALS: BP 162/70
--- NOTE | 2020-08-02 17:03 | Diagnostic Imaging Report ---
Indication: Cough Technique: One view of the chest Comparison: 07/31/2020 post catheter placement radiograph Findings: The heart is enlarged. Bilateral infiltrates versus edema are probably unchanged. Right jugular dialysis catheter is again demonstrated Impression: Unchanged, over 2 days, findings as above.
[2020-08-02 21:00] VITALS: BP 165/77
[2020-08-02] MEDS: Atorvastatin 80mg tab ORAL SCH (22:40)
[2020-08-02] MEDS: Sennosides 8.6mg tab ORAL SCH (22:40)
[2020-08-02] MEDS: TraZODone 100mg tab ORAL SCH (22:40)
[2020-08-02] MEDS: Epoetin Alfa-EPBX(ESRD on dialysis)4000 units/ml vial SUBQ SCH (22:41)
[2020-08-02] MEDS: Dyna-Hex 2% Top Sol 2oz TOPIC SCH (22:42)
[2020-08-02] MEDS: Epoetin Alfa-EPBX(ESRD on dialysis)3000 units/ml vial SUBQ SCH (22:42)
[2020-08-03] VITALS: BP 159/60
[2020-08-03 04:00] VITALS: BP 151/57
[2020-08-03] MEDS: dilTIAZem HCl 60mg tab ORAL SCH ×3 (06:01→22:01)
[2020-08-03] MEDS: Nitroglycerin 2% oint pkt TOPIC SCH ×3 (06:02→17:03)
[2020-08-03] MEDS: NovoLOG Insulin Flexpen SUBQ SCH ×4 (06:11→21:00)
[2020-08-03 07:32] LABS: BASOPHILS % (AUTO) 0.5 % (0.0-2.0); HEMATOCRIT 28.9 % (37.0-47.0); HEMOGLOBIN 9.4 G/DL (12.0-16.0); LYMPHOCYTES % (AUTO) 22.5 % (20.0-45.0); MEAN CORPUSCULAR VOLUME 89 FL (80-99); MONOCYTES % (AUTO) 9.6 % (1.0-10.0); NEUTROPHILS % (AUTO) 67.4 % (45.0-75.0); PLATELET COUNT 107 K/UL (150-450); RED BLOOD COUNT 3.25 M/UL (4.20-5.40); RED CELL DISTRIBUTION WIDTH 18.7 % (11.6-14.8); WHITE BLOOD COUNT 7.6 K/UL (4.8-10.8)
[2020-08-03 08:00] VITALS: BP 171/63
[2020-08-03 08:09] LABS: CALCIUM 7.4 MG/DL (8.5-10.1); CREATININE 4.6 MG/DL (0.55-1.30); PHOSPHORUS 2.8 MG/DL (2.5-4.9); POTASSIUM 3.7 MMOL/L (3.5-5.1)
--- NOTE | 2020-08-03 09:22 | Nephrology Progress Note ---
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 (4) Nephrotic syndrome (5) End-stage renal disease (6) CHF (congestive heart failure), NYHA class II (7) Metabolic acidosis (8) Suspected 2019 novel coronavirus infection (9) Pneumonia (10) Hypotension (11) Angina at rest Plan d/w consultants, dexamethasone, antibiotics, ivernectin, dialysis cath and start HD 07/31, on 07/31 episode of hypotension and afib, nonsustained vtach, bp better with fluids, bp meds stopped for now, better 08/01 on cardizem , nsr with pvc's , HD 08/01+08/02 +08/03, try to ccontrol bp with volume on HD d/w dr ge+maddie Subjective Constitutional: Reports: weakness HEENT: Reports: no symptoms Genitourinary: Reports: incontinence Neurologic/Psychiatric: Reports: weakness Subjective mild cough, no chest pain,+nausea Objective Objective Last 24 Hour Vital Signs Date Time Temp Pulse Resp B/P (MAP) Pulse Ox O2 Delivery O2 Flow Rate FiO2 08/03/20 06:02 151/62 08/03/20 06:01 60 151/62 08/03/20 04:00 56 08/03/20 04:00 98.8 60 18 151/57 (88) 100 08/03/20 00:00 98.2 70 18 159/60 (93) 95 08/03/20 00:00 70 08/02/20 22:40 64 162/88 08/02/20 22:39 64 162/80 08/02/20 21:00 99.0 69 18 165/77 (106) 98 08/02/20 21:00 Nasal Cannula 3.0 08/02/20 20:00 63 08/02/20 17:33 162/70 08/02/20 16:00 65 08/02/20 16:00 97.7 62 18 162/70 (100) 95 08/02/20 13:55 65 174/74 08/02/20 12:09 179/75 08/02/20 12:00 97.9 57 20 179/75 (109) 97 08/02/20 12:00 57 Intake and Output 08/02/20 08/03/20 19:00 07:00 Intake Total 130 ml Output Total 2000 ml Balance -2000 ml 130 ml Intake Oral 130 ml Output Hemodialysis UF 2000 ml # Bowel Movements 1 1 Laboratory Tests 08/02/20 20:55: POC Whole Blood Glucose 123H 08/03/20 06:08: POC Whole Blood Glucose 98, White Blood Count 7.6, Red Blood Count 3.25L, Hemoglobin 9.4L, Hematocrit 28.9L, Mean Corpuscular Volume 89, Mean Corpuscular Hemoglobin 28.9, Mean Corpuscular Hemoglobin Concent 32.5, Red Cell Distribution Width 18.7H, Platelet Count 107L, Mean Platelet Volume 10.6H, Neutrophils (%) (A uto) 67.4, Lymphocytes (%) (Auto) 22.5, Monocytes (%) (Auto) 9.6, Eosinophils (%) (Auto) 0.0, Basophils (%) (Auto) 0.5, Sodium Level 138, Potassium Level 3.7, Chloride Level 103, Carbon Dioxide Level 27, Anion Gap 8, Blood Urea Nitrogen 43H, Creatinine 4.6H, Estimat Glomerular Filtration Rate 11.4, Glucose Level 94, Calcium Level 7.4L, Phosphorus Level 2.8 Height (Feet): 5 Height (Inches): 2.00 Weight (Pounds): 189 General Appearance: no apparent distress, obese EENT: normal ENT inspection Neck: normal alignment, supple Cardiovascular: regular rhythm Respiratory/Chest: lungs clear Abdomen: non tender, soft Extremities: moderate edema 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
[2020-08-03] MEDS: Carvedilol 25mg Tab ORAL SCH ×2 (09:50→22:01)
[2020-08-03] MEDS: dexAMETHasone 10mg/ml Inj IV SCH (09:50)
[2020-08-03] MEDS: Nephrovite tab (Rena-Vite) ORAL SCH (09:50)
[2020-08-03] MEDS: Aspirin Baby 81mg ORAL SCH (09:50)
[2020-08-03] MEDS: Heparin 5000 units/ml inj SUBQ SCH ×2 (09:50→21:00)
--- NOTE | 2020-08-03 11:05 | Infectious Diseases Prog Note ---
"Assessment/Plan Assessment/Plan antibiotics : none A 1. 1. COVID-19 pneumonia. She is on 3 liters of oxygen with 100 % saturation. s/p ivermectin 2. Diabetes. 3. Hypertension. 4. Renal failure. 5. COPD. 6. proteus | e.coli UTI P 1. continue decadron day 6 2. continue ceftriaxone 5 more days 3. covid 19 test 4. will follow up cultures 5. continue isolation Subjective ROS Limited/Unobtainable: Yes Allergies: Coded Allergies: No Known Allergies (Unverified , 07/29/20) Objective Last 24 Hour Vital Signs Date Time Temp Pulse Resp B/P (MAP) Pulse Ox O2 Delivery O2 Flow Rate FiO2 08/03/20 06:02 151/62 08/03/20 06:01 60 151/62 08/03/20 04:00 56 08/03/20 04:00 98.8 60 18 151/57 (88) 100 08/03/20 00:00 98.2 70 18 159/60 (93) 95 08/03/20 00:00 70 08/02/20 22:40 64 162/88 08/02/20 22:39 64 162/80 08/02/20 21:00 99.0 69 18 165/77 (106) 98 08/02/20 21:00 Nasal Cannula 3.0 08/02/20 20:00 63 08/02/20 17:33 162/70 08/02/20 16:00 65 08/02/20 16:00 97.7 62 18 162/70 (100) 95 08/02/20 13:55 65 174/74 08/02/20 12:09 179/75 08/02/20 12:00 97.9 57 20 179/75 (109) 97 08/02/20 12:00 57 Height (Feet): 5 Height (Inches): 2.00 Weight (Pounds): 189 Respiratory/Chest: lungs clear Cardiovascular: normal rate, regular rhythm, no gallop/murmur Abdomen: soft, non tender Extremities: no edema, other - right IJ catheter Laboratory Tests Test 08/02/20 20:55 08/03/20 06:08 POC Whole Blood Glucose 123 MG/DL (74-106) H 98 MG/DL (74-106) White Blood Count 7.6 K/UL (4.8-10.8) Red Blood Count 3.25 M/UL (4.20-5.40) L Hemoglobin 9.4 G/DL (12.0-16.0) L Hematocrit 28.9 % (37.0-47.0) L Mean Corpuscular Volume 89 FL (80-99) Mean Corpuscular Hemoglobin 28.9 PG (27.0-31.0) Mean Corpuscular Hemoglobin Concent 32.5 G/DL (32.0-36.0) Red Cell Distribution Width 18.7 % (11.6-14.8) H Platelet Count 107 K/UL (150-450) L Mean Platelet Volume 10.6 FL (6.5-10.1) H Neutrophils (%) (Auto) 67.4 % (45.0-75.0) Lymphocytes (%) (Auto) 22.5 % (20.0-45.0) Monocytes (%) (Auto) 9.6 % (1.0-10.0) Eosinophils (%) (Auto) 0.0 % (0.0-3.0) Basophils (%) (Auto) 0.5 % (0.0-2.0) Sodium Level 138 MMOL/L (136-145) Potassium Level 3.7 MMOL/L (3.5-5.1) Chloride Level 103 MMOL/L (98-107) Carbon Dioxide Level 27 MMOL/L (21-32) Anion Gap 8 mmol/L (5-15) Blood Urea Nitrogen 43 mg/dL (7-18) H Creatinine 4.6 MG/DL (0.55-1.30) H Estimat Glomerular Filtration Rate 11.4 mL/min (>60) Glucose Level 94 MG/DL (74-106) Calcium Level 7.4 MG/DL (8.5-10.1) L Phosphorus Level 2.8 MG/DL (2.5-4.9) Current Medications Medications (Trade) Dose Ordered Sig/Andrew Route PRN Reason Start Time Stop Time Status Last Admin Dose Admin Acetaminophen (Tylenol) 650 mg Q4H PRN ORAL Mild Pain (Pain Scale 1-3) 07/29/20 22:45 08/28/20 22:44 Acetaminophen (Tylenol) 650 mg Q4H PRN ORAL Temp >100.5 07/29/20 22:45 08/28/20 22:44 Aspirin (ASA) 81 mg DAILY ORAL 07/30/20 09:00 09/13/20 08:59 08/03/20 09:50 Atorvastatin Calcium (Lipitor) 80 mg BEDTIME ORAL 07/30/20 21:00 10/28/20 20:59 08/02/20 22:40 Budesonide/ Formoterol Fumarate (Symbicort 160/ 4.5) 2 puff BIDRT INH 07/30/20 10:00 10/28/20 09:59 08/03/20 10:33 Carvedilol (Coreg) 25 mg EVERY 12 HOURS ORAL 07/31/20 21:00 08/30/20 20:59 08/02/20 22:40 Ceftriaxone Sodium 1 gm/ Dextrose 55 ml @ 110 mls/hr Q24H IVPB 08/02/20 11:30 08/09/20 11:29 08/02/20 12:08 Chlorhexidine Gluconate (Brittany-Hex 2%) 1 applic DAILY@2000 TOPIC 08/01/20 20:00 10/30/20 19:59 08/02/20 22:42 Dexamethasone Sodium Phosphate (Decadron 10mg/ ml Inj) 6 mg DAILY IV 07/30/20 09:00 08/09/20 08:59 08/03/20 09:50 Dextrose (Dextrose 50%) 25 ml Q30M PRN IV Hypoglycemia 07/30/20 12:30 10/28/20 12:29 Dextrose (Dextrose 50%) 50 ml Q30M PRN IV Hypoglycemia 07/30/20 12:30 10/28/20 12:29 Diltiazem HCl (Cardizem Tab) 30 mg EVERY 8 HOURS ORAL 08/02/20 06:00 09/01/20 05:59 08/03/20 06:01 Diphenhydramine HCl (Benadryl) 25 mg Q6H PRN ORAL Itching 07/29/20 22:45 08/28/20 22:44 Epoetin Matthew (Epoetin Matthew(ESRD on dialysis)) 3,000 unit WED-WED-WED SUBQ 08/02/20 21:00 10/31/20 20:59 08/02/20 22:42 Epoetin Matthew (Epoetin Matthew(ESRD on dialysis)) 4,000 unit WED-WED-WED SUBQ 08/02/20 21:00 10/31/20 20:59 08/02/20 22:41 Escitalopram Oxalate (Lexapro) 10 mg DAILY ORAL 07/30/20 09:00 08/29/20 08:59 08/03/20 09:50 Famotidine (Pepcid) 20 mg DAILY ORAL 07/30/20 09:00 10/28/20 08:59 08/03/20 09:50 Guaifenesin (Robitussin) 200 mg Q4H PRN ORAL FOR COUGH 07/29/20 22:45 10/27/20 22:44 Heparin Sodium (Porcine) (Heparin 5000 units/ml) 5,000 units EVERY 12 HOURS SUBQ 07/30/20 09:00 09/13/20 08:59 08/01/20 22:23 Heparin Sodium (Porcine) (Heparin Sod 1000 units/ml 10ml) 2,000 unit ONCE PRN IV HD 08/03/20 12:45 08/04/20 23:59 Insulin Aspart (NovoLOG) BEFORE MEALS AND HS SUBQ 07/30/20 16:30 10/28/20 16:29 07/30/20 16:45 Lactulose (Cephulac) 30 gm BIDLS ORAL 07/30/20 11:30 08/29/20 11:29 08/02/20 15:39 Nitroglycerin (Nitro-Bid) 1 inch TID@0600,1200,1800 TOPIC 08/02/20 06:00 09/01/20 05:59 08/03/20 06:02 Nitroglycerin (Ntg) 0.4 mg Q5M PRN SL Prn Chest Pain 07/29/20 22:45 08/28/20 22:44 Ondansetron HCl (Zofran) 4 mg Q4H PRN IVP Nausea & Vomiting 07/29/20 22:45 08/28/20 22:44 08/02/20 10:34 Pantoprazole (Protonix) 40 mg DAILY ORAL 08/02/20 13:00 09/01/20 12:59 08/03/20 09:50 Polyethylene Glycol (Miralax) 17 gm DAILYPRN PRN ORAL Constipation 07/29/20 22:45 08/28/20 22:44 Sennosides (Senokot) 8.6 mg QHS ORAL 07/30/20 21:00 08/29/20 20:59 08/02/20 22:40 Sevelamer Carbonate (Renvela) 800 mg THREE TIMES A DAY ORAL 08/01/20 09:30 10/30/20 09:29 08/03/20 09:50 Sodium Chloride 1,000 ml @ 500 mls/hr Q2H PRN IVLG sbp<90 during hd 08/03/20 12:45 08/04/20 23:59 Trazodone HCl (Desyrel) 100 mg BEDTIME ORAL 07/30/20 21:00 08/29/20 20:59 08/02/20 22:40 Vitamin B Complex/ Vit C/Folic Acid (Nephrovite) 1 tab DAILY ORAL 07/30/20 09:00 08/29/20 08:59 08/03/20 09:50 Joyce Laurent MD Aug 03, 2020 11:05"
[2020-08-03] MEDS: Lactulose 10gm/15ml UDC ORAL SCH ×2 (11:37→17:02)
[2020-08-03] MEDS: cefTRIAXone 1 GM in D5W 55 ML IVPB SCH (11:37)
[2020-08-03 12:00] VITALS: BP 168/63
[2020-08-03] MEDS ORDERED: Heparin Sod 1000 units/ml 10ml IV PRN (12:45)
--- NOTE | 2020-08-03 12:59 | Cardiology Report ---
APPROVED REPORT EKG Measurement Heart [id number] <Conclusion> Normal sinus rhythm Normal ECG
[2020-08-03 16:00] VITALS: BP 163/85
[2020-08-03 20:00] VITALS: BP_SYST 163; BP_SYST 181; BP_DIAS 75; BP_DIAS 85
[2020-08-03] MEDS: Dyna-Hex 2% Top Sol 2oz TOPIC SCH (20:00)
[2020-08-03] MEDS: Atorvastatin 80mg tab ORAL SCH (21:00)
[2020-08-03] MEDS: Sennosides 8.6mg tab ORAL SCH (21:00)
[2020-08-03] MEDS: TraZODone 100mg tab ORAL SCH (22:04)
[2020-08-03] MEDS ORDERED: Vancomycin 1 GM in D5W 275 ML IVPB ONE (23:30)
[2020-08-04 04:00] VITALS: BP 170/90
[2020-08-04] MEDS: NovoLOG Insulin Flexpen SUBQ SCH (06:30)
[2020-08-04] MEDS: dilTIAZem HCl 60mg tab ORAL SCH ×3 (06:39→21:13)
[2020-08-04] MEDS: Nitroglycerin 2% oint pkt TOPIC SCH ×3 (06:40→17:31)
[2020-08-04 08:00] VITALS: BP 184/75
[2020-08-04] MEDS: Heparin 5000 units/ml inj SUBQ SCH ×2 (09:00→21:00)
--- NOTE | 2020-08-04 09:37 | Nephrology Progress Note ---
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 (4) Nephrotic syndrome (5) End-stage renal disease (6) CHF (congestive heart failure), NYHA class II (7) Metabolic acidosis (8) Suspected 2019 novel coronavirus infection (9) Pneumonia (10) Hypotension (11) Angina at rest Plan d/w consultants, dexamethasone, antibiotics, ivernectin, dialysis cath and start HD 07/31, on 07/31 episode of hypotension and afib, nonsustained vtach, bp better with fluids, bp meds restart 08/04, on cardizem , nsr with pvc's , HD 08/01+08/02 +08/03, try to ccontrol bp with volume on HD d/w dr ge+maddie, fever spike 12/5 pm cultured, vanco ordered Subjective Constitutional: Reports: weakness HEENT: Reports: no symptoms Genitourinary: Reports: no symptoms Neurologic/Psychiatric: Reports: no symptoms Subjective mild cough, no chest pain,+nausea Objective Objective Last 24 Hour Vital Signs Date Time Temp Pulse Resp B/P (MAP) Pulse Ox O2 Delivery O2 Flow Rate FiO2 08/04/20 08:00 97.7 111 20 184/75 (111) 95 08/04/20 06:40 170/90 08/04/20 06:39 60 170/90 08/04/20 04:00 60 08/04/20 04:00 97.7 68 20 170/90 (116) 96 08/04/20 00:30 100.0 08/04/20 00:00 78 08/03/20 23:15 101.1 08/03/20 23:15 101.5 80 97 08/03/20 22:01 80 191/75 08/03/20 22:01 80 191/75 08/03/20 21:00 Room Air 08/03/20 20:00 100.0 73 18 163/85 (111) 98 08/03/20 20:00 81 08/03/20 20:00 100.0 80 20 181/75 (110) 94 08/03/20 17:03 163/85 08/03/20 16:00 73 08/03/20 16:00 99.5 73 18 163/85 (111) 98 08/03/20 12:00 98.1 58 18 168/63 (98) 96 08/03/20 12:00 58 08/03/20 11:37 168/63 Intake and Output 08/03/20 08/04/20 19:00 07:00 Intake Total 535 ml 275.000 ml Output Total 1500 ml Balance -965 ml 275.000 ml Intake Oral 480 ml IV Total 55 ml 275.000 ml Output Hemodialysis UF 1500 ml # Bowel Movements 2 2 Laboratory Tests 08/03/20 17:09: POC Whole Blood Glucose [Pending] Height (Feet): 5 Height (Inches): 2.00 Weight (Pounds): 189 General Appearance: no apparent distress, alert EENT: normal ENT inspection Neck: normal alignment Cardiovascular: normal rate, regular rhythm Respiratory/Chest: lungs clear Abdomen: soft, no organomegaly Extremities: moderate edema Neurologic: glass crusher II-XII grossly normal Christopher Andres MD Aug 04, 2020 09:37
[2020-08-04] MEDS: Carvedilol 25mg Tab ORAL SCH ×2 (10:03→21:13)
[2020-08-04] MEDS: Nephrovite tab (Rena-Vite) ORAL SCH (10:03)
[2020-08-04] MEDS: Aspirin Baby 81mg ORAL SCH (10:03)
[2020-08-04] MEDS: dexAMETHasone 10mg/ml Inj IV SCH (10:05)
[2020-08-04] MEDS: Losartan 50mg tab ORAL SCH (10:09)
[2020-08-04 12:00] VITALS: BP 173/84
[2020-08-04] MEDS: Lactulose 10gm/15ml UDC ORAL SCH ×2 (12:10→15:48)
[2020-08-04] MEDS: cefTRIAXone 1 GM in D5W 55 ML IVPB SCH (12:10)
--- NOTE | 2020-08-04 13:51 | Infectious Diseases Prog Note ---
Assessment/Plan Assessment/Plan A 1. COVID19 pneumonia. s/p ivermectin 2. Diabetes. 3. Hypertension. 4. Renal failure, ESRD 5. COPD. 6. UTI P 1. continue Decadron day 7 2. Continue Ceftriaxone X 4 days 3. continue isolation 4. Will f/u cultures Subjective ROS Limited/Unobtainable: No Constitutional: Reports: fever, other - last night Respiratory: Reports: no symptoms Gastrointestinal/Abdominal: Reports: no symptoms Genitourinary: Reports: no symptoms Allergies: Coded Allergies: No Known Allergies (Unverified , 07/29/20) Objective Last 24 Hour Vital Signs Date Time Temp Pulse Resp B/P (MAP) Pulse Ox O2 Delivery O2 Flow Rate FiO2 08/04/20 12:11 173/84 08/04/20 12:00 65 08/04/20 12:00 96.3 86 18 173/84 (113) 100 08/04/20 10:09 111 184/75 08/04/20 10:09 184/75 08/04/20 10:03 111 184/75 08/04/20 09:00 Room Air 08/04/20 08:00 97.7 111 20 184/75 (111) 95 08/04/20 08:00 63 08/04/20 06:40 170/90 08/04/20 06:39 60 170/90 08/04/20 04:00 60 08/04/20 04:00 97.7 68 20 170/90 (116) 96 08/04/20 00:30 100.0 08/04/20 00:00 78 08/03/20 23:15 101.1 08/03/20 23:15 101.5 80 97 08/03/20 22:01 80 191/75 08/03/20 22:01 80 191/75 08/03/20 21:00 Room Air 08/03/20 20:00 100.0 73 18 163/85 (111) 98 08/03/20 20:00 81 08/03/20 20:00 100.0 80 20 181/75 (110) 94 08/03/20 17:03 163/85 08/03/20 16:00 73 08/03/20 16:00 99.5 73 18 163/85 (111) 98 Height (Feet): 5 Height (Inches): 2.00 Weight (Pounds): 189 General Appearance: no acute distress HEENT: mucous membranes moist Respiratory/Chest: lungs clear, other - on room air oxygen Cardiovascular: normal rate, other - RIJ HD line Abdomen: soft, non tender Extremities: no edema Neurologic/Psychiatric: alert, responsive Laboratory Tests Test 08/03/20 17:09 08/04/20 12:33 POC Whole Blood Glucose Pending 138 MG/DL (74-106) H Current Medications Medications (Trade) Dose Ordered Sig/Andrew Route PRN Reason Start Time Stop Time Status Last Admin Dose Admin Acetaminophen (Tylenol) 650 mg Q4H PRN ORAL Temp >100.5 07/29/20 22:45 08/28/20 22:44 08/04/20 00:00 Acetaminophen (Tylenol) 650 mg Q4H PRN ORAL Mild Pain (Pain Scale 1-3) 07/29/20 22:45 08/28/20 22:44 Amlodipine Besylate (Norvasc) 5 mg BID ORAL 08/04/20 10:00 09/03/20 09:59 08/04/20 10:09 Aspirin (ASA) 81 mg DAILY ORAL 07/30/20 09:00 09/13/20 08:59 08/04/20 10:03 Atorvastatin Calcium (Lipitor) 80 mg BEDTIME ORAL 07/30/20 21:00 10/28/20 20:59 08/03/20 21:00 Budesonide/ Formoterol Fumarate (Symbicort 160/ 4.5) 2 puff BIDRT INH 07/30/20 10:00 10/28/20 09:59 08/04/20 10:50 Carvedilol (Coreg) 25 mg EVERY 12 HOURS ORAL 07/31/20 21:00 08/30/20 20:59 08/04/20 10:03 Ceftriaxone Sodium 1 gm/ Dextrose 55 ml @ 110 mls/hr Q24H IVPB 08/02/20 11:30 08/09/20 11:29 08/04/20 12:10 Chlorhexidine Gluconate (Brittany-Hex 2%) 1 applic DAILY@2000 TOPIC 08/01/20 20:00 10/30/20 19:59 08/02/20 22:42 Dexamethasone Sodium Phosphate (Decadron 10mg/ ml Inj) 6 mg DAILY IV 07/30/20 09:00 08/09/20 08:59 08/04/20 10:05 Diltiazem HCl (Cardizem Tab) 30 mg EVERY 8 HOURS ORAL 08/02/20 06:00 09/01/20 05:59 08/04/20 06:39 Diphenhydramine HCl (Benadryl) 25 mg Q6H PRN ORAL Itching 07/29/20 22:45 08/28/20 22:44 Epoetin Matthew (Epoetin Matthew(ESRD on dialysis)) 3,000 unit WED-WED-WED SUBQ 08/02/20 21:00 10/31/20 20:59 08/02/20 22:42 Epoetin Matthew (Epoetin Matthew(ESRD on dialysis)) 4,000 unit SUBQ 08/02/20 21:00 10/31/20 20:59 08/02/20 22:41 Escitalopram Oxalate (Lexapro) 10 mg DAILY ORAL 07/30/20 09:00 08/29/20 08:59 08/04/20 10:04 Famotidine (Pepcid) 20 mg DAILY ORAL 07/30/20 09:00 10/28/20 08:59 08/04/20 10:03 Guaifenesin (Robitussin) 200 mg Q4H PRN ORAL FOR COUGH 07/29/20 22:45 10/27/20 22:44 Heparin Sodium (Porcine) (Heparin 5000 units/ml) 5,000 units EVERY 12 HOURS SUBQ 07/30/20 09:00 09/13/20 08:59 08/01/20 22:23 Heparin Sodium (Porcine) (Heparin Sod 1000 units/ml 10ml) 2,000 unit ONCE IV 08/05/20 09:45 08/05/20 23:59 Heparin Sodium (Porcine) (Heparin Sod 1000 units/ml 10ml) 2,000 unit ONCE PRN IV HD 08/03/20 12:45 08/04/20 23:59 08/03/20 14:59 Lactulose (Cephulac) 30 gm BIDLS ORAL 07/30/20 11:30 08/29/20 11:29 08/04/20 12:10 Losartan Potassium (Cozaar) 100 mg DAILY ORAL 08/04/20 10:00 09/03/20 09:59 08/04/20 10:09 Nitroglycerin (Nitro-Bid) 1 inch TID@0600,1200,1800 TOPIC 08/02/20 06:00 09/01/20 05:59 08/04/20 12:11 Nitroglycerin (Ntg) 0.4 mg Q5M PRN SL Prn Chest Pain 07/29/20 22:45 08/28/20 22:44 Ondansetron HCl (Zofran) 4 mg Q4H PRN IVP Nausea & Vomiting 07/29/20 22:45 08/28/20 22:44 08/03/20 14:49 Pantoprazole (Protonix) 40 mg DAILY ORAL 08/02/20 13:00 09/01/20 12:59 08/04/20 10:04 Polyethylene Glycol (Miralax) 17 gm DAILYPRN PRN ORAL Constipation 07/29/20 22:45 08/28/20 22:44 Sennosides (Senokot) 8.6 mg QHS ORAL 07/30/20 21:00 08/29/20 20:59 08/02/20 22:40 Sevelamer Carbonate (Renvela) 800 mg THREE TIMES A DAY ORAL 08/01/20 09:30 10/30/20 09:29 08/04/20 12:09 Sodium Chloride 1,000 ml @ 500 mls/hr Q2H PRN IVLG sbp<90 during hd 08/03/20 12:45 08/04/20 23:59 Sodium Chloride 1,000 ml @ 500 mls/hr Q2H PRN IVLG sbp<90 during hd 08/05/20 06:00 08/05/20 23:59 Trazodone HCl (Desyrel) 100 mg BEDTIME ORAL 07/30/20 21:00 08/29/20 20:59 08/03/20 22:04 Vitamin B Complex/ Vit C/Folic Acid (Nephrovite) 1 tab DAILY ORAL 07/30/20 09:00 08/29/20 08:59 08/04/20 10:03 Saad Toledo MD Aug 04, 2020 13:51
[2020-08-04 15:42] VITALS: BP 160/50
[2020-08-04 20:00] VITALS: BP 166/64
[2020-08-04] MEDS: Dyna-Hex 2% Top Sol 2oz TOPIC SCH (20:27)
[2020-08-04] MEDS: Sennosides 8.6mg tab ORAL SCH (21:00)
[2020-08-04] MEDS: TraZODone 100mg tab ORAL SCH (21:13)
[2020-08-04] MEDS: Atorvastatin 80mg tab ORAL SCH (21:13)
[2020-08-05] VITALS: BP 159/63
--- NOTE | 2020-08-05 02:28 | Cardiology Progress Note ---
Subjective DATE OF SERVICE: Aug 03, 2020 BP parameters now better controlled; mostly in high normal range. No CP No c/o SOB. Continues with HD/UF - daily for fluid management and BP control Monitor with sinus and asymptomatic sinus bradycardia; no new episodes of Atrial Fibrillation or Non Sustained Ventric tach. yesterday. Mild Troponin elevations persist; CK/CKMB normal Objective BP 151/57 P 58-68 R 18 Tmax 99.0 HEENT: normal ENT inspection RHYTHM: NSR, Afib, VT LUNGS: rales bilaterally CARDIAC: normal rate, regular rhythm, normal S1 and S2 ABDOMEN: normal bowel sounds, non tender, no organomegaly EXTREMITIES: normal range of motion, non-tender, +1 edema Laboratory Tests Microbiology Date/Time Source Procedure Growth Status 08/04/20 16:11 Nasopharynx SARS-CoV-2 RdRp Gene Assay - Final Complete Assessment/Plan Assessment/Plan CKD5 Ac/chr diastolic CHF Paroxysmal atrial and ventricular arrhythmias Labile Hypertension with hypotension this afternoon. Chronic myocardial ischemia and probable NSTEMI COVID 19 PNAxc Sinus bradycardia due to meds. HD/UF again today. Titrating carvedilol and diltiazem dosing as needed, with "hold parameter for low HR and BP. Continue cardiac monitoring Anti-plt therapy Antivirals/steroids/anticoagulation per ID Will ultimately need myocardial perfusion scan - as outpatient, once Covid 19 resolved. Solo Smith MD Aug 05, 2020 02:28
--- NOTE | 2020-08-05 02:29 | Cardiology Progress Note ---
Subjective DATE OF SERVICE: Aug 04, 2020 BP parameters now better controlled; mostly in high normal range. No CP No c/o SOB. Continues with HD/UF - for fluid management and BP control Monitor with sinus and asymptomatic sinus bradycardia; no new episodes of Atrial Fibrillation or Non Sustained Ventric tach. Mild Troponin elevations persist; CK/CKMB normal Objective Last 24 Hour Vital Signs Date Time Temp Pulse Resp B/P (MAP) Pulse Ox O2 Delivery O2 Flow Rate FiO2 08/05/20 00:00 99.5 66 20 159/63 (95) 98 08/05/20 00:00 65 08/04/20 21:13 69 173/72 08/04/20 21:13 69 173/72 08/04/20 21:00 Room Air 08/04/20 20:00 68 08/04/20 20:00 99.9 69 20 166/64 (98) 98 08/04/20 17:31 110 160/50 08/04/20 17:31 160/50 08/04/20 16:18 99.5 08/04/20 16:00 64 08/04/20 15:46 110 160/50 08/04/20 15:42 100.8 110 18 160/50 (86) 100 08/04/20 12:11 173/84 08/04/20 12:00 65 08/04/20 12:00 96.3 86 18 173/84 (113) 100 08/04/20 10:09 111 184/75 08/04/20 10:09 184/75 08/04/20 10:03 111 184/75 08/04/20 09:00 Room Air 08/04/20 08:00 97.7 111 20 184/75 (111) 95 08/04/20 08:00 63 08/04/20 06:40 170/90 08/04/20 06:39 60 170/90 08/04/20 04:00 60 08/04/20 04:00 97.7 68 20 170/90 (116) 96 HEENT: normal ENT inspection RHYTHM: NSR, Afib, VT LUNGS: rales bilaterally CARDIAC: normal rate, regular rhythm, normal S1 and S2 ABDOMEN: normal bowel sounds, non tender, no organomegaly EXTREMITIES: normal range of motion, non-tender, +1 edema Laboratory Tests Test 08/04/20 06:44 08/04/20 12:33 08/04/20 16:36 08/04/20 21:17 POC Whole Blood Glucose 101 MG/DL (74-106) 138 MG/DL (74-106) H 148 MG/DL (74-106) H 144 MG/DL (74-106) H Microbiology Date/Time Source Procedure Growth Status 08/04/20 16:11 Nasopharynx SARS-CoV-2 RdRp Gene Assay - Final Complete Assessment/Plan Assessment/Plan CKD5 Ac/chr diastolic CHF Paroxysmal atrial and ventricular arrhythmias Labile Hypertension with hypotension this afternoon. Chronic myocardial ischemia and probable NSTEMI COVID 19 PNAxc Sinus bradycardia due to meds. HD/UF again today. Titrating carvedilol and diltiazem dosing as needed, with "hold parameter for low HR and BP. Optimizing BP regimen Continue cardiac monitoring Anti-plt therapy Antivirals/steroids/anticoagulation per ID Will ultimately need myocardial perfusion scan - as outpatient, once Covid 19 resolved. Solo Smith MD Aug 05, 2020 02:29
[2020-08-05 04:00] VITALS: BP 164/73
[2020-08-05] MEDS: dilTIAZem HCl 60mg tab ORAL SCH ×3 (05:45→21:01)
[2020-08-05] MEDS: Nitroglycerin 2% oint pkt TOPIC SCH ×3 (05:46→18:34)
[2020-08-05 08:00] VITALS: BP 161/57
[2020-08-05] MEDS: Nephrovite tab (Rena-Vite) ORAL SCH (09:22)
[2020-08-05] MEDS: Aspirin Baby 81mg ORAL SCH (09:22)
[2020-08-05] MEDS: dexAMETHasone 10mg/ml Inj IV SCH (09:23)
[2020-08-05] MEDS: Carvedilol 25mg Tab ORAL SCH ×2 (09:31→20:47)
[2020-08-05] MEDS: Losartan 50mg tab ORAL SCH (09:32)
[2020-08-05] MEDS: Heparin 5000 units/ml inj SUBQ SCH ×2 (09:32→20:50)
[2020-08-05] MEDS ORDERED: Heparin Sod 1000 units/ml 10ml IV SCH (09:45)
[2020-08-05 10:56] LABS: BASOPHILS % (AUTO) 0.6 % (0.0-2.0); EOSINOPHILS % (AUTO) 0.1 % (0.0-3.0); HEMATOCRIT 33.3 % (37.0-47.0); HEMOGLOBIN 10.3 G/DL (12.0-16.0); LYMPHOCYTES % (AUTO) 20.6 % (20.0-45.0); MEAN CORPUSCULAR VOLUME 90 FL (80-99); MONOCYTES % (AUTO) 7.1 % (1.0-10.0); NEUTROPHILS % (AUTO) 71.6 % (45.0-75.0); PLATELET COUNT 132 K/UL (150-450); RED CELL DISTRIBUTION WIDTH 18.6 % (11.6-14.8); WHITE BLOOD COUNT 17.1 K/UL (4.8-10.8)
--- NOTE | 2020-08-05 10:56 | Infectious Diseases Prog Note ---
"Assessment/Plan Assessment/Plan antibiotics : none A 1. 1. COVID-19 pneumonia. She is on room air with 100 % saturation. s/p ivermectin 2. Diabetes. 3. Hypertension. 4. Renal failure. 5. COPD. 6. proteus | e.coli UTI 7. fever improving P 1. continue decadron day 8 2. continue ceftriaxone 3 more days 3. s/p iv vancomycin 4. will follow up cultures 5. continue isolation Subjective Constitutional: Denies: fever, chills Respiratory: Denies: shortness of breath Gastrointestinal/Abdominal: Reports: nausea, diarrhea; Denies: vomiting Musculoskeletal: Denies: pain Allergies: Coded Allergies: No Known Allergies (Unverified , 07/29/20) Objective Last 24 Hour Vital Signs Date Time Temp Pulse Resp B/P (MAP) Pulse Ox O2 Delivery O2 Flow Rate FiO2 08/05/20 08:00 98.6 69 18 161/57 (91) 96 08/05/20 05:46 173/73 08/05/20 05:45 67 173/73 08/05/20 04:00 62 08/05/20 04:00 99.0 70 20 164/73 (103) 96 08/05/20 00:00 99.5 66 20 159/63 (95) 98 08/05/20 00:00 65 08/04/20 21:13 69 173/72 08/04/20 21:13 69 173/72 08/04/20 21:00 Room Air 08/04/20 20:00 68 08/04/20 20:00 99.9 69 20 166/64 (98) 98 08/04/20 17:31 110 160/50 08/04/20 17:31 160/50 08/04/20 16:18 99.5 08/04/20 16:00 64 08/04/20 15:46 110 160/50 08/04/20 15:42 100.8 110 18 160/50 (86) 100 08/04/20 12:11 173/84 08/04/20 12:00 65 08/04/20 12:00 96.3 86 18 173/84 (113) 100 Height (Feet): 5 Height (Inches): 2.00 Weight (Pounds): 189 Microbiology Date/Time Source Procedure Growth Status 08/04/20 16:11 Nasopharynx SARS-CoV-2 RdRp Gene Assay - Final Complete 08/03/20 23:47 Blood Blood Culture - Preliminary NO GROWTH AFTER 24 HOURS Resulted 08/03/20 23:32 Blood Blood Culture - Preliminary NO GROWTH AFTER 24 HOURS Resulted Laboratory Tests Test 08/04/20 12:33 08/04/20 16:36 08/04/20 21:17 08/05/20 06:28 POC Whole Blood Glucose 138 MG/DL (74-106) H 148 MG/DL (74-106) H 144 MG/DL (74-106) H 99 MG/DL (74-106) Test 08/05/20 09:30 White Blood Count Pending Red Blood Count Pending Hemoglobin Pending Hematocrit Pending Mean Corpuscular Volume Pending Mean Corpuscular Hemoglobin Pending Mean Corpuscular Hemoglobin Concent Pending Red Cell Distribution Width Pending Platelet Count Pending Mean Platelet Volume Pending Neutrophils (%) (Auto) Pending Lymphocytes (%) (Auto) Pending Monocytes (%) (Auto) Pending Eosinophils (%) (Auto) Pending Basophils (%) (Auto) Pending Sodium Level Pending Potassium Level Pending Chloride Level Pending Carbon Dioxide Level Pending Blood Urea Nitrogen Pending Creatinine Pending Estimat Glomerular Filtration Rate Pending Glucose Level Pending Calcium Level Pending Phosphorus Level Pending Current Medications Medications (Trade) Dose Ordered Sig/Andrew Route PRN Reason Start Time Stop Time Status Last Admin Dose Admin Acetaminophen (Tylenol) 650 mg Q4H PRN ORAL Temp >100.5 07/29/20 22:45 08/28/20 22:44 08/04/20 00:00 Acetaminophen (Tylenol) 650 mg Q4H PRN ORAL Mild Pain (Pain Scale 1-3) 07/29/20 22:45 08/28/20 22:44 08/04/20 15:48 Amlodipine Besylate (Norvasc) 5 mg BID ORAL 08/04/20 10:00 09/03/20 09:59 08/04/20 17:31 Aspirin (ASA) 81 mg DAILY ORAL 07/30/20 09:00 09/13/20 08:59 08/05/20 09:22 Atorvastatin Calcium (Lipitor) 80 mg BEDTIME ORAL 07/30/20 21:00 10/28/20 20:59 08/04/20 21:13 Budesonide/ Formoterol Fumarate (Symbicort 160/ 4.5) 2 puff BIDRT INH 07/30/20 10:00 10/28/20 09:59 08/04/20 21:16 Carvedilol (Coreg) 25 mg EVERY 12 HOURS ORAL 07/31/20 21:00 08/30/20 20:59 08/04/20 21:13 Ceftriaxone Sodium 1 gm/ Dextrose 55 ml @ 110 mls/hr Q24H IVPB 08/02/20 11:30 08/09/20 11:29 08/04/20 12:10 Chlorhexidine Gluconate (Brittany-Hex 2%) 1 applic DAILY@2000 TOPIC 08/01/20 20:00 10/30/20 19:59 08/04/20 20:27 Dexamethasone Sodium Phosphate (Decadron 10mg/ ml Inj) 6 mg DAILY IV 07/30/20 09:00 08/09/20 08:59 08/05/20 09:23 Diltiazem HCl (Cardizem Tab) 30 mg EVERY 8 HOURS ORAL 08/02/20 06:00 09/01/20 05:59 08/05/20 05:45 Diphenhydramine HCl (Benadryl) 25 mg Q6H PRN ORAL Itching 07/29/20 22:45 08/28/20 22:44 Epoetin Matthew (Epoetin Matthew(ESRD on dialysis)) 3,000 unit -WED SUBQ 08/02/20 21:00 10/31/20 20:59 08/02/20 22:42 Epoetin Matthew (Epoetin Matthew(ESRD on dialysis)) 4,000 unit SUBQ 08/02/20 21:00 10/31/20 20:59 08/02/20 22:41 Escitalopram Oxalate (Lexapro) 10 mg DAILY ORAL 07/30/20 09:00 08/29/20 08:59 08/05/20 09:22 Famotidine (Pepcid) 20 mg DAILY ORAL 07/30/20 09:00 10/28/20 08:59 08/05/20 09:22 Guaifenesin (Robitussin) 200 mg Q4H PRN ORAL FOR COUGH 07/29/20 22:45 2/28/21 22:44 Heparin Sodium (Porcine) (Heparin 5000 units/ml) 5,000 units EVERY 12 HOURS SUBQ 07/30/20 09:00 09/13/20 08:59 08/01/20 22:23 Heparin Sodium (Porcine) (Heparin Sod 1000 units/ml 10ml) 2,000 unit ONCE IV 08/05/20 09:45 08/05/20 23:59 Lactulose (Cephulac) 30 gm BIDLS ORAL 07/30/20 11:30 08/29/20 11:29 08/04/20 15:48 Losartan Potassium (Cozaar) 100 mg DAILY ORAL 08/04/20 10:00 09/03/20 09:59 08/04/20 10:09 Nitroglycerin (Nitro-Bid) 1 inch TID@0600,1200,1800 TOPIC 08/02/20 06:00 09/01/20 05:59 08/05/20 05:46 Nitroglycerin (Ntg) 0.4 mg Q5M PRN SL Prn Chest Pain 07/29/20 22:45 08/28/20 22:44 Ondansetron HCl (Zofran) 4 mg Q4H PRN IVP Nausea & Vomiting 07/29/20 22:45 08/28/20 22:44 08/03/20 14:49 Pantoprazole (Protonix) 40 mg DAILY ORAL 08/02/20 13:00 09/01/20 12:59 08/05/20 09:22 Polyethylene Glycol (Miralax) 17 gm DAILYPRN PRN ORAL Constipation 07/29/20 22:45 08/28/20 22:44 Sennosides (Senokot) 8.6 mg QHS ORAL 07/30/20 21:00 08/29/20 20:59 08/02/20 22:40 Sevelamer Carbonate (Renvela) 800 mg THREE TIMES A DAY ORAL 08/01/20 09:30 10/30/20 09:29 08/05/20 09:22 Sodium Chloride 1,000 ml @ 500 mls/hr Q2H PRN IVLG sbp<90 during hd 08/05/20 06:00 08/05/20 23:59 Trazodone HCl (Desyrel) 100 mg BEDTIME ORAL 07/30/20 21:00 08/29/20 20:59 08/04/20 21:13 Vitamin B Complex/ Vit C/Folic Acid (Nephrovite) 1 tab DAILY ORAL 07/30/20 09:00 08/29/20 08:59 08/05/20 09:22 Joyce Laurent MD Aug 05, 2020 10:56"
[2020-08-05 11:40] LABS: BLOOD UREA NITROGEN 33 mg/dL (7-18); CALCIUM 7.5 MG/DL (8.5-10.1); CARBON DIOXIDE 30 MMOL/L (21-32); CREATININE 4.4 MG/DL (0.55-1.30); PHOSPHORUS 1.9 MG/DL (2.5-4.9)
[2020-08-05 12:00] VITALS: BP 169/86
[2020-08-05 12:00] LABS: CHLORIDE 106 MMOL/L (98-107); POTASSIUM 2.8 MMOL/L (3.5-5.1); SODIUM 144 MMOL/L (136-145)
[2020-08-05] MEDS: cefTRIAXone 1 GM in D5W 55 ML IVPB SCH ×2 (12:02→14:04)
[2020-08-05] MEDS: Lactulose 10gm/15ml UDC ORAL SCH ×2 (14:05→16:30)
[2020-08-05 16:00] VITALS: BP 156/83
--- NOTE | 2020-08-05 17:37 | Nephrology Progress Note ---
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 (4) Nephrotic syndrome (5) End-stage renal disease (6) CHF (congestive heart failure), NYHA class II (7) Metabolic acidosis (8) Suspected 2019 novel coronavirus infection (9) Pneumonia (10) Hypotension (11) Angina at rest Plan d/w consultants, dexamethasone, antibiotics, ivernectin, dialysis cath and start HD 07/31, on 07/31 episode of hypotension and afib, nonsustained vtach, bp better with fluids, bp meds restart 08/04, on cardizem , nsr with pvc's , HD 08/01+08/02 +08/03, try to ccontrol bp with volume on HD --stable on HD 08/05 d/w dr ge+maddie, fever spike 12/5 pm cultured, vanco ordered Subjective Constitutional: Reports: weakness HEENT: Reports: no symptoms Genitourinary: Reports: incontinence Neurologic/Psychiatric: Reports: no symptoms Subjective mild cough, no chest pain,+nausea Objective Objective Last 24 Hour Vital Signs Date Time Temp Pulse Resp B/P (MAP) Pulse Ox O2 Delivery O2 Flow Rate FiO2 08/05/20 16:00 97.4 74 19 156/83 (107) 95 08/05/20 15:10 77 08/05/20 14:06 73 176/76 08/05/20 14:03 176/76 08/05/20 12:00 98.1 66 18 169/86 (113) 97 08/05/20 11:45 67 08/05/20 11:42 65 08/05/20 09:00 Room Air 08/05/20 08:00 98.6 69 18 161/57 (91) 96 08/05/20 07:43 62 08/05/20 05:46 173/73 08/05/20 05:45 67 173/73 08/05/20 04:00 62 08/05/20 04:00 99.0 70 20 164/73 (103) 96 08/05/20 00:00 99.5 66 20 159/63 (95) 98 08/05/20 00:00 65 08/04/20 21:13 69 173/72 08/04/20 21:13 69 173/72 08/04/20 21:00 Room Air 08/04/20 20:00 68 08/04/20 20:00 99.9 69 20 166/64 (98) 98 Intake and Output 08/04/20 08/05/20 19:00 07:00 Intake Total 500 ml 115 ml Balance 500 ml 115 ml Intake Oral 500 ml 115 ml # Bowel Movements 3 2 Laboratory Tests 08/04/20 21:17: POC Whole Blood Glucose 144H 08/05/20 06:28: POC Whole Blood Glucose 99 08/05/20 09:30: White Blood Count 17.1H, Red Blood Count 3.70L, Hemoglobin 10.3L, Hematocrit 33.3L, Mean Corpuscular Volume 90, Mean Corpuscular Hemoglobin 27.9, Mean Corpuscular Hemoglobin Concent 30.9L, Red Cell Distribution Width 18.6H, Platelet Count 132L, Mean Platelet Volume 8.5, Neutrophils (%) (Auto) 71.6, Lymphocytes (%) (Auto) 20.6, Monocytes (%) (Auto) 7.1, Eosinophils (%) (Auto) 0.1, Basophils (%) (Auto) 0.6, Sodium Level 144, Potassium Level 2.8L, Chloride Level 106, Carbon Dioxide Level 30, Blood Urea Nitrogen 33H, Creatinine 4.4H, Estimat Glomerular Filtration Rate 12.0, Glucose Level 96, Calcium Level 7.5L, Phosphorus Level 1.9L 08/05/20 16:21: POC Whole Blood Glucose 136H Height (Feet): 5 Height (Inches): 2.00 Weight (Pounds): 189 General Appearance: no apparent distress, alert EENT: normal ENT inspection Neck: normal alignment Cardiovascular: normal rate, regular rhythm Respiratory/Chest: lungs clear Abdomen: non tender Extremities: no edema 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
[2020-08-05 20:00] VITALS: BP 162/66
[2020-08-05] MEDS: TraZODone 100mg tab ORAL SCH (20:46)
[2020-08-05] MEDS: Dyna-Hex 2% Top Sol 2oz TOPIC SCH (20:46)
[2020-08-05] MEDS: Epoetin Alfa-EPBX(ESRD on dialysis)3000 units/ml vial SUBQ SCH (20:47)
[2020-08-05] MEDS: Atorvastatin 80mg tab ORAL SCH (20:47)
[2020-08-05] MEDS: Epoetin Alfa-EPBX(ESRD on dialysis)4000 units/ml vial SUBQ SCH (20:48)
[2020-08-05] MEDS: Sennosides 8.6mg tab ORAL SCH (20:49)
[2020-08-06] VITALS: BP 152/68
--- NOTE | 2020-08-06 02:39 | Cardiology Progress Note ---
Subjective DATE OF SERVICE: Aug 05, 2020 BP parameters remain mostly in high normal range. No CP No c/o SOB. Continues with HD/UF - for fluid management and BP control Monitor with sinus and asymptomatic sinus bradycardia; occasional episodes of Atrial Fibrillation and Non Sustained Ventric tach. Mild Troponin elevations noted; CK/CKMB normal Objective Last 24 Hour Vital Signs Date Time Temp Pulse Resp B/P (MAP) Pulse Ox O2 Delivery O2 Flow Rate FiO2 08/06/20 00:00 60 08/06/20 00:00 99.9 62 17 152/68 (96) 98 08/05/20 21:01 71 162/66 08/05/20 21:00 Room Air 08/05/20 20:47 72 162/66 08/05/20 20:00 99.9 73 19 162/66 (98) 98 08/05/20 20:00 72 08/05/20 18:34 76 160/71 08/05/20 18:34 160/71 08/05/20 16:00 97.4 74 19 156/83 (107) 95 08/05/20 15:10 77 08/05/20 14:06 73 176/76 08/05/20 14:03 176/76 08/05/20 12:00 98.1 66 18 169/86 (113) 97 08/05/20 11:45 67 08/05/20 11:42 65 08/05/20 09:00 Room Air 08/05/20 08:00 98.6 69 18 161/57 (91) 96 08/05/20 07:43 62 08/05/20 05:46 173/73 08/05/20 05:45 67 173/73 08/05/20 04:00 62 08/05/20 04:00 99.0 70 20 164/73 (103) 96 HEENT: normal ENT inspection RHYTHM: NSR, Afib, VT LUNGS: rales bilaterally CARDIAC: normal rate, regular rhythm, normal S1 and S2 ABDOMEN: normal bowel sounds, non tender, no organomegaly EXTREMITIES: normal range of motion, non-tender, +1 edema Laboratory Tests Test 08/05/20 06:28 08/05/20 09:30 08/05/20 16:21 08/05/20 20:17 POC Whole Blood Glucose 99 MG/DL (74-106) 136 MG/DL (74-106) H 152 MG/DL (74-106) H White Blood Count 17.1 K/UL (4.8-10.8) H Red Blood Count 3.70 M/UL (4.20-5.40) L Hemoglobin 10.3 G/DL (12.0-16.0) L Hematocrit 33.3 % (37.0-47.0) L Mean Corpuscular Volume 90 FL (80-99) Mean Corpuscular Hemoglobin 27.9 PG (27.0-31.0) Mean Corpuscular Hemoglobin Concent 30.9 G/DL (32.0-36.0) L Red Cell Distribution Width 18.6 % (11.6-14.8) H Platelet Count 132 K/UL (150-450) L Mean Platelet Volume 8.5 FL (6.5-10.1) Neutrophils (%) (Auto) 71.6 % (45.0-75.0) Lymphocytes (%) (Auto) 20.6 % (20.0-45.0) Monocytes (%) (Auto) 7.1 % (1.0-10.0) Eosinophils (%) (Auto) 0.1 % (0.0-3.0) Basophils (%) (Auto) 0.6 % (0.0-2.0) Sodium Level 144 MMOL/L (136-145) Potassium Level 2.8 MMOL/L (3.5-5.1) L Chloride Level 106 MMOL/L (98-107) Carbon Dioxide Level 30 MMOL/L (21-32) Blood Urea Nitrogen 33 mg/dL (7-18) H Creatinine 4.4 MG/DL (0.55-1.30) H Estimat Glomerular Filtration Rate 12.0 mL/min (>60) Glucose Level 96 MG/DL (74-106) Calcium Level 7.5 MG/DL (8.5-10.1) L Phosphorus Level 1.9 MG/DL (2.5-4.9) L Microbiology Date/Time Source Procedure Growth Status 08/04/20 16:11 Nasopharynx SARS-CoV-2 RdRp Gene Assay - Final Complete 08/03/20 23:47 Blood Blood Culture - Preliminary NO GROWTH AFTER 24 HOURS Resulted 08/03/20 23:32 Blood Blood Culture - Preliminary NO GROWTH AFTER 24 HOURS Resulted Assessment/Plan Assessment/Plan CKD5 Ac/chr diastolic CHF Paroxysmal atrial and ventricular arrhythmias Labile Hypertension with hypotension this afternoon. Chronic myocardial ischemia and probable NSTEMI COVID 19 PNAxc Sinus bradycardia due to meds. HypoPO4- HypoK+ HD/UF again today. Titrating beta tc dosing as needed, with "hold parameter for low HR and BP. Switch to metoprolol for better anti-arrhythmic benefit. Optimizing BP regimen - meds adjusted Continue cardiac monitoring Anti-plt therapy Antivirals/steroids/anticoagulation per ID Will ultimately need myocardial perfusion scan - as outpatient, once Covid 19 resolved. Solo Smith MD Aug 06, 2020 02:39
[2020-08-06 04:00] VITALS: BP 155/66
[2020-08-06] MEDS: Nitroglycerin 2% oint pkt TOPIC SCH ×3 (05:26→17:17)
[2020-08-06 08:00] VITALS: BP 168/60
[2020-08-06] MEDS: dexAMETHasone 10mg/ml Inj IV SCH (09:21)
[2020-08-06] MEDS: Heparin 5000 units/ml inj SUBQ SCH ×2 (09:23→20:41)
[2020-08-06] MEDS: Nephrovite tab (Rena-Vite) ORAL SCH (09:24)
[2020-08-06] MEDS: Aspirin Baby 81mg ORAL SCH (09:24)
[2020-08-06] MEDS: Metoprolol Tartrate 50mg tab ORAL SCH ×2 (09:25→20:48)
[2020-08-06] MEDS: Losartan 50mg tab ORAL SCH (09:32)
--- NOTE | 2020-08-06 10:32 | Infectious Diseases Prog Note ---
"Assessment/Plan Assessment/Plan antibiotics : ceftriaxone A 1. 1. COVID-19 pneumonia. She is on room air with 97 % saturation. s/p ivermectin 2. Diabetes. 3. Hypertension. 4. Renal failure. 5. COPD. 6. proteus | e.coli UTI 7. leucocytosis likely secondary to steroids P 1. continue decadron day 9 2. continue ceftriaxone 2 more days 3. will follow up cultures 4. continue isolation Subjective Constitutional: Denies: fever, chills Respiratory: Denies: shortness of breath, dry cough Gastrointestinal/Abdominal: Reports: nausea; Denies: vomiting, diarrhea Neurologic: Reports: weakness Musculoskeletal: Denies: pain Allergies: Coded Allergies: No Known Allergies (Unverified , 07/29/20) Objective Last 24 Hour Vital Signs Date Time Temp Pulse Resp B/P (MAP) Pulse Ox O2 Delivery O2 Flow Rate FiO2 08/06/20 09:32 168/60 08/06/20 09:25 72 168/60 08/06/20 09:24 72 168/60 08/06/20 05:26 152/63 08/06/20 04:00 99.3 67 20 155/66 (95) 99 08/06/20 04:00 59 08/06/20 00:00 60 08/06/20 00:00 99.9 62 17 152/68 (96) 98 08/05/20 21:01 71 162/66 08/05/20 21:00 Room Air 08/05/20 20:47 72 162/66 08/05/20 20:00 99.9 73 19 162/66 (98) 98 08/05/20 20:00 72 08/05/20 18:34 76 160/71 08/05/20 18:34 160/71 08/05/20 16:00 97.4 74 19 156/83 (107) 95 08/05/20 15:10 77 08/05/20 14:06 73 176/76 08/05/20 14:03 176/76 08/05/20 12:00 98.1 66 18 169/86 (113) 97 08/05/20 11:45 67 08/05/20 11:42 65 Height (Feet): 5 Height (Inches): 2.00 Weight (Pounds): 189 Microbiology Date/Time Source Procedure Growth Status 08/04/20 16:11 Nasopharynx SARS-CoV-2 RdRp Gene Assay - Final Complete 08/03/20 23:47 Blood Blood Culture - Preliminary NO GROWTH AFTER 24 HOURS Resulted 08/03/20 23:32 Blood Blood Culture - Preliminary NO GROWTH AFTER 24 HOURS Resulted Laboratory Tests Test 08/05/20 16:21 08/05/20 20:17 08/06/20 05:13 POC Whole Blood Glucose 136 MG/DL (74-106) H 152 MG/DL (74-106) H 88 MG/DL (74-106) Current Medications Medications (Trade) Dose Ordered Sig/Andrew Route PRN Reason Start Time Stop Time Status Last Admin Dose Admin Acetaminophen (Tylenol) 650 mg Q4H PRN ORAL Temp >100.5 07/29/20 22:45 08/28/20 22:44 08/04/20 00:00 Acetaminophen (Tylenol) 650 mg Q4H PRN ORAL Mild Pain (Pain Scale 1-3) 07/29/20 22:45 08/28/20 22:44 08/04/20 15:48 Amlodipine Besylate (Norvasc) 5 mg BID ORAL 08/04/20 10:00 09/03/20 09:59 08/06/20 09:24 Aspirin (ASA) 81 mg DAILY ORAL 07/30/20 09:00 09/13/20 08:59 08/06/20 09:24 Atorvastatin Calcium (Lipitor) 80 mg BEDTIME ORAL 07/30/20 21:00 10/28/20 20:59 08/05/20 20:47 Budesonide/ Formoterol Fumarate (Symbicort 160/ 4.5) 2 puff BIDRT INH 07/30/20 10:00 10/28/20 09:59 08/06/20 09:37 Ceftriaxone Sodium 1 gm/ Dextrose 55 ml @ 110 mls/hr Q24H IVPB 08/02/20 11:30 08/09/20 11:29 08/05/20 14:04 Chlorhexidine Gluconate (Brittany-Hex 2%) 1 applic DAILY@2000 TOPIC 08/01/20 20:00 10/30/20 19:59 08/05/20 20:46 Dexamethasone Sodium Phosphate (Decadron 10mg/ ml Inj) 6 mg DAILY IV 07/30/20 09:00 08/09/20 08:59 08/06/20 09:21 Diphenhydramine HCl (Benadryl) 25 mg Q6H PRN ORAL Itching 07/29/20 22:45 08/28/20 22:44 Epoetin Matthew (Epoetin Matthew(ESRD on dialysis)) 3,000 unit WED- SUBQ 08/02/20 21:00 10/31/20 20:59 08/05/20 20:47 Epoetin Matthew (Epoetin Matthew(ESRD on dialysis)) 4,000 unit SUBQ 08/02/20 21:00 10/31/20 20:59 08/05/20 20:48 Escitalopram Oxalate (Lexapro) 10 mg DAILY ORAL 07/30/20 09:00 08/29/20 08:59 08/06/20 09:23 Famotidine (Pepcid) 20 mg DAILY ORAL 07/30/20 09:00 10/28/20 08:59 08/06/20 09:23 Guaifenesin (Robitussin) 200 mg Q4H PRN ORAL FOR COUGH 07/29/20 22:45 10/27/20 22:44 Heparin Sodium (Porcine) (Heparin 5000 units/ml) 5,000 units EVERY 12 HOURS SUBQ 07/30/20 09:00 09/13/20 08:59 08/06/20 09:23 Lactulose (Cephulac) 30 gm BIDLS ORAL 07/30/20 11:30 08/29/20 11:29 08/05/20 14:05 Losartan Potassium (Cozaar) 100 mg DAILY ORAL 08/04/20 10:00 09/03/20 09:59 08/06/20 09:32 Metoprolol Tartrate (Lopressor) 50 mg Q12HR ORAL 08/06/20 09:00 11/04/20 08:59 08/06/20 09:25 Nitroglycerin (Nitro-Bid) 1 inch TID@0600,1200,1800 TOPIC 08/02/20 06:00 09/01/20 05:59 08/06/20 05:26 Nitroglycerin (Ntg) 0.4 mg Q5M PRN SL Prn Chest Pain 07/29/20 22:45 08/28/20 22:44 Ondansetron HCl (Zofran) 4 mg Q4H PRN IVP Nausea & Vomiting 07/29/20 22:45 08/28/20 22:44 08/03/20 14:49 Pantoprazole (Protonix) 40 mg DAILY ORAL 08/02/20 13:00 09/01/20 12:59 08/06/20 09:23 Polyethylene Glycol (Miralax) 17 gm DAILYPRN PRN ORAL Constipation 07/29/20 22:45 08/28/20 22:44 Sennosides (Senokot) 8.6 mg QHS ORAL 07/30/20 21:00 08/29/20 20:59 08/02/20 22:40 Sevelamer Carbonate (Renvela) 800 mg THREE TIMES A DAY ORAL 08/01/20 09:30 10/30/20 09:29 08/06/20 09:23 Trazodone HCl (Desyrel) 100 mg BEDTIME ORAL 07/30/20 21:00 08/29/20 20:59 08/05/20 20:46 Vitamin B Complex/ Vit C/Folic Acid (Nephrovite) 1 tab DAILY ORAL 07/30/20 09:00 08/29/20 08:59 08/06/20 09:24 Joyce Laurent MD Aug 06, 2020 10:32"
[2020-08-06] MEDS: Lactulose 10gm/15ml UDC ORAL SCH ×2 (11:30→14:18)
[2020-08-06] MEDS: cefTRIAXone 1 GM in D5W 55 ML IVPB SCH (11:54)
[2020-08-06 12:00] VITALS: BP 143/61
--- NOTE | 2020-08-06 13:15 | Nephrology Progress Note ---
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 (4) Nephrotic syndrome (5) End-stage renal disease (6) CHF (congestive heart failure), NYHA class II (7) Metabolic acidosis (8) Suspected 2019 novel coronavirus infection (9) Pneumonia (10) Hypotension (11) Angina at rest Plan d/w consultants, dexamethasone, antibiotics, ivernectin, dialysis cath and start HD 07/31, on 07/31 episode of hypotension and afib, nonsustained vtach, bp better with fluids, bp meds restart 08/04, on cardizem , nsr with pvc's , HD 08/01+08/02 +08/03, try to ccontrol bp with volume on HD --stable on HD 08/05 d/w dr ge+maddie, fever spike 125 pm cultured, vanco ordered, fever again 08/06 , check c diff Subjective Constitutional: Reports: weakness HEENT: Reports: no symptoms Genitourinary: Reports: incontinence Neurologic/Psychiatric: Reports: no symptoms Subjective mild cough, no chest pain,+nausea+diarrhea Objective Objective Last 24 Hour Vital Signs Date Time Temp Pulse Resp B/P (MAP) Pulse Ox O2 Delivery O2 Flow Rate FiO2 08/06/20 12:06 163/64 08/06/20 09:32 168/60 08/06/20 09:25 72 168/60 08/06/20 09:24 72 168/60 08/06/20 08:00 98.1 20 168/60 (96) 98 08/06/20 08:00 76 08/06/20 05:26 152/63 08/06/20 04:00 99.3 67 20 155/66 (95) 99 08/06/20 04:00 59 08/06/20 00:00 60 08/06/20 00:00 99.9 62 17 152/68 (96) 98 08/05/20 21:01 71 162/66 08/05/20 21:00 Room Air 08/05/20 20:47 72 162/66 08/05/20 20:00 99.9 73 19 162/66 (98) 98 08/05/20 20:00 72 08/05/20 18:34 76 160/71 12/7/20 18:34 160/71 08/05/20 16:00 97.4 74 19 156/83 (107) 95 08/05/20 15:10 77 08/05/20 14:06 73 176/76 08/05/20 14:03 176/76 Intake and Output 08/05/20 08/06/20 19:00 07:00 Intake Total 600 ml 120 ml Output Total 2500 ml Balance -1900 ml 120 ml Intake Oral 120 ml Other 600 ml Output Hemodialysis UF 2500 ml # Bowel Movements 1 2 Laboratory Tests 08/05/20 16:21: POC Whole Blood Glucose 136H 08/05/20 20:17: POC Whole Blood Glucose 152H 08/06/20 05:13: POC Whole Blood Glucose 88 08/06/20 12:08: POC Whole Blood Glucose 120H Height (Feet): 5 Height (Inches): 2.00 Weight (Pounds): 189 General Appearance: alert, obese EENT: normal ENT inspection Neck: normal alignment Cardiovascular: normal rate, regular rhythm Respiratory/Chest: lungs clear Abdomen: non tender Extremities: no edema 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
[2020-08-06 16:00] VITALS: BP 153/58
[2020-08-06 20:00] VITALS: BP 164/69
[2020-08-06] MEDS: Dyna-Hex 2% Top Sol 2oz TOPIC SCH (20:40)
[2020-08-06] MEDS: Atorvastatin 80mg tab ORAL SCH (20:40)
[2020-08-06] MEDS: Sennosides 8.6mg tab ORAL SCH (20:41)
[2020-08-06] MEDS: TraZODone 100mg tab ORAL SCH (20:41)
[2020-08-07] VITALS: BP 130/56
--- NOTE | 2020-08-07 01:48 | Cardiology Progress Note ---
Subjective DATE OF SERVICE: Aug 06, 2020 BP parameters remain mostly in high normal range. Still having fever spikes. No CP No c/o SOB. Continues with HD/UF - for fluid management and BP control Monitor with sinus and asymptomatic sinus bradycardia; occasional episodes of Atrial Fibrillation and Non Sustained Ventric tach. Objective Last 24 Hour Vital Signs Date Time Temp Pulse Resp B/P (MAP) Pulse Ox O2 Delivery O2 Flow Rate FiO2 08/07/20 00:00 62 08/06/20 21:00 Room Air 08/06/20 20:48 71 164/69 08/06/20 20:00 100.8 24 164/69 (100) 96 08/06/20 20:00 69 08/06/20 17:17 64 168/67 08/06/20 17:17 168/67 08/06/20 16:00 65 08/06/20 16:00 99.1 20 153/58 (89) 99 08/06/20 12:37 100.0 08/06/20 12:06 163/64 08/06/20 12:00 97.7 18 143/61 (88) 98 08/06/20 12:00 73 08/06/20 09:32 168/60 08/06/20 09:25 72 168/60 08/06/20 09:24 72 168/60 08/06/20 09:00 Room Air 08/06/20 08:00 98.1 20 168/60 (96) 98 08/06/20 08:00 76 08/06/20 05:26 152/63 08/06/20 04:00 99.3 67 20 155/66 (95) 99 08/06/20 04:00 59 HEENT: normal ENT inspection RHYTHM: NSR, Afib, VT LUNGS: rales bilaterally CARDIAC: normal rate, regular rhythm, normal S1 and S2 ABDOMEN: normal bowel sounds, non tender, no organomegaly EXTREMITIES: normal range of motion, non-tender, +1 edema Laboratory Tests Test 08/06/20 05:13 08/06/20 12:08 POC Whole Blood Glucose 88 MG/DL (74-106) 120 MG/DL (74-106) H Microbiology Date/Time Source Procedure Growth Status 08/04/20 16:11 Nasopharynx SARS-CoV-2 RdRp Gene Assay - Final Complete Assessment/Plan Assessment/Plan CKD5 Ac/chr diastolic CHF Paroxysmal atrial and ventricular arrhythmias Labile Hypertension with hypotension this afternoon. Chronic myocardial ischemia and probable NSTEMI COVID 19 PNA Sinus bradycardia due to meds. HypoPO4- HypoK+ HD/UF again today. Titrating beta tc dosing as needed, with "hold parameter for low HR and BP. Continue metoprolol for anti-arrhythmic benefit. Optimizing BP regimen - meds being adjusted Continue cardiac monitoring Anti-plt therapy Antivirals/steroids/anticoagulation per ID Will ultimately need myocardial perfusion scan - as outpatient, once Covid 19 resolved. Solo Smith MD Aug 07, 2020 01:48
[2020-08-07 04:00] VITALS: BP 111/67
[2020-08-07] MEDS: Nitroglycerin 2% oint pkt TOPIC SCH ×3 (06:48→17:17)
[2020-08-07 08:00] VITALS: BP 167/66
[2020-08-07] MEDS ORDERED: Heparin Sod 1000 units/ml 10ml IV PRN (09:00)
[2020-08-07] MEDS: Losartan 50mg tab ORAL SCH (09:32)
[2020-08-07] MEDS: Metoprolol Tartrate 50mg tab ORAL SCH ×2 (09:33→22:24)
[2020-08-07] MEDS: dexAMETHasone 10mg/ml Inj IV SCH (09:44)
[2020-08-07] MEDS: Nephrovite tab (Rena-Vite) ORAL SCH (09:44)
[2020-08-07] MEDS: Aspirin Baby 81mg ORAL SCH (09:44)
[2020-08-07] MEDS: Heparin 5000 units/ml inj SUBQ SCH ×2 (09:46→21:00)
--- NOTE | 2020-08-07 10:43 | Nephrology Progress Note ---
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 (4) Nephrotic syndrome (5) End-stage renal disease (6) CHF (congestive heart failure), NYHA class II (7) Metabolic acidosis (8) Suspected 2019 novel coronavirus infection (9) Pneumonia (10) Hypotension (11) Angina at rest Plan d/w consultants, dexamethasone, antibiotics, ivernectin, dialysis cath and start HD 07/31, on 07/31 episode of hypotension and afib, nonsustained vtach, bp better with fluids, bp meds restart 08/04, on cardizem , nsr with pvc's , HD 08/01+08/02 +08/03, try to ccontrol bp with volume on HD --stable on HD 08/05 d/w dr ge+maddie, fever spike 125 pm cultured, vanco ordered, fever again 08/06 , check c diff--neg,recheck covid prior to placing permcath Subjective Constitutional: Reports: weakness HEENT: Reports: no symptoms Genitourinary: Reports: incontinence Neurologic/Psychiatric: Reports: no symptoms Subjective no cough, no chest pain,+diarrhea Objective Objective Last 24 Hour Vital Signs Date Time Temp Pulse Resp B/P (MAP) Pulse Ox O2 Delivery O2 Flow Rate FiO2 08/07/20 09:00 Room Air 08/07/20 08:00 97.9 57 20 167/66 (99) 100 08/07/20 07:52 59 08/07/20 06:48 111/67 08/07/20 04:00 98.9 57 20 111/67 (82) 100 08/07/20 04:00 53 08/07/20 00:00 62 08/07/20 00:00 99.1 59 20 130/56 (80) 99 08/06/20 21:00 Room Air 08/06/20 20:48 71 164/69 08/06/20 20:00 100.8 24 164/69 (100) 96 08/06/20 20:00 69 08/06/20 17:17 64 168/67 08/06/20 17:17 168/67 08/06/20 16:00 65 08/06/20 16:00 99.1 20 153/58 (89) 99 08/06/20 12:37 100.0 08/06/20 12:06 163/64 08/06/20 12:00 97.7 18 143/61 (88) 98 08/06/20 12:00 73 Intake and Output 08/06/20 08/07/20 19:00 07:00 Intake Total 236 ml Output Total 100 ml Balance 236 ml -100 ml Intake Oral 236 ml Emesis 100 ml # Bowel Movements 4 4 Laboratory Tests 08/06/20 12:08: POC Whole Blood Glucose 120H 08/07/20 02:22: POC Whole Blood Glucose 86 08/07/20 06:53: POC Whole Blood Glucose [Pending] Height (Feet): 5 Height (Inches): 2.00 Weight (Pounds): 189 General Appearance: no apparent distress EENT: normal ENT inspection Neck: normal alignment Cardiovascular: regular rhythm Respiratory/Chest: lungs clear Abdomen: soft Extremities: no edema 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
--- NOTE | 2020-08-07 11:24 | Infectious Diseases Prog Note ---
"Assessment/Plan Assessment/Plan antibiotics : ceftriaxone A 1. 1. COVID-19 pneumonia. She is on room air with 98 % saturation. s/p ivermectin 2. Diabetes. 3. Hypertension. 4. Renal failure. 5. COPD. 6. proteus | e.coli UTI 7. leucocytosis likely secondary to steroids P 1. complete decadron day 10 2. continue ceftriaxone 1 more day 3. will follow up cultures 4. continue isolation Subjective Constitutional: Denies: fever, chills Respiratory: Denies: shortness of breath, dry cough Gastrointestinal/Abdominal: Denies: nausea, vomiting, diarrhea Musculoskeletal: Denies: pain Allergies: Coded Allergies: No Known Allergies (Unverified , 07/29/20) Objective Last 24 Hour Vital Signs Date Time Temp Pulse Resp B/P (MAP) Pulse Ox O2 Delivery O2 Flow Rate FiO2 08/07/20 09:00 Room Air 08/07/20 08:00 97.9 57 20 167/66 (99) 100 08/07/20 07:52 59 08/07/20 06:48 111/67 08/07/20 04:00 98.9 57 20 111/67 (82) 100 08/07/20 04:00 53 08/07/20 00:00 62 08/07/20 00:00 99.1 59 20 130/56 (80) 99 08/06/20 21:00 Room Air 08/06/20 20:48 71 164/69 08/06/20 20:00 100.8 24 164/69 (100) 96 08/06/20 20:00 69 08/06/20 17:17 64 168/67 08/06/20 17:17 168/67 08/06/20 16:00 65 08/06/20 16:00 99.1 20 153/58 (89) 99 08/06/20 12:37 100.0 08/06/20 12:06 163/64 08/06/20 12:00 97.7 18 143/61 (88) 98 08/06/20 12:00 73 Height (Feet): 5 Height (Inches): 2.00 Weight (Pounds): 189 Microbiology Date/Time Source Procedure Growth Status 08/06/20 22:30 Stool Clostridium difficile Toxin Assay - Final Complete 08/04/20 16:11 Nasopharynx SARS-CoV-2 RdRp Gene Assay - Final Complete Laboratory Tests Test 08/06/20 12:08 08/07/20 02:22 08/07/20 06:53 POC Whole Blood Glucose 120 MG/DL (74-106) H 86 MG/DL (74-106) Pending Current Medications Medications (Trade) Dose Ordered Sig/Andrew Route PRN Reason Start Time Stop Time Status Last Admin Dose Admin Acetaminophen (Tylenol) 650 mg Q4H PRN ORAL Temp >100.5 07/29/20 22:45 08/28/20 22:44 08/04/20 00:00 Acetaminophen (Tylenol) 650 mg Q4H PRN ORAL Mild Pain (Pain Scale 1-3) 07/29/20 22:45 08/28/20 22:44 08/06/20 18:57 Amlodipine Besylate (Norvasc) 5 mg BID ORAL 08/04/20 10:00 09/03/20 09:59 08/06/20 17:17 Aspirin (ASA) 81 mg DAILY ORAL 07/30/20 09:00 09/13/20 08:59 08/07/20 09:44 Atorvastatin Calcium (Lipitor) 80 mg BEDTIME ORAL 07/30/20 21:00 10/28/20 20:59 08/06/20 20:40 Budesonide/ Formoterol Fumarate (Symbicort 160/ 4.5) 2 puff BIDRT INH 07/30/20 10:00 10/28/20 09:59 08/07/20 10:02 Ceftriaxone Sodium 1 gm/ Dextrose 55 ml @ 110 mls/hr Q24H IVPB 08/02/20 11:30 08/09/20 11:29 08/06/20 11:54 Chlorhexidine Gluconate (Brittany-Hex 2%) 1 applic DAILY@2000 TOPIC 08/01/20 20:00 10/30/20 19:59 08/06/20 20:40 Dexamethasone Sodium Phosphate (Decadron 10mg/ ml Inj) 6 mg DAILY IV 07/30/20 09:00 08/09/20 08:59 08/07/20 09:44 Diphenhydramine HCl (Benadryl) 25 mg Q6H PRN ORAL Itching 07/29/20 22:45 08/28/20 22:44 Epoetin Matthew (Epoetin Matthew(ESRD on dialysis)) 3,000 unit SUBQ 08/02/20 21:00 10/31/20 20:59 08/05/20 20:47 Epoetin Matthew (Epoetin Matthew(ESRD on dialysis)) 4,000 unit WED- SUBQ 08/02/20 21:00 10/31/20 20:59 08/05/20 20:48 Escitalopram Oxalate (Lexapro) 10 mg DAILY ORAL 07/30/20 09:00 08/29/20 08:59 08/07/20 09:44 Famotidine (Pepcid) 20 mg DAILY ORAL 07/30/20 09:00 10/28/20 08:59 08/07/20 09:44 Guaifenesin (Robitussin) 200 mg Q4H PRN ORAL FOR COUGH 07/29/20 22:45 10/27/20 22:44 Heparin Sodium (Porcine) (Heparin 5000 units/ml) 5,000 units EVERY 12 HOURS SUBQ 07/30/20 09:00 09/13/20 08:59 08/07/20 09:46 Heparin Sodium (Porcine) (Heparin Sod 1000 units/ml 10ml) 2,000 unit ONCE PRN IV dialysis 08/07/20 09:00 08/07/20 23:59 Losartan Potassium (Cozaar) 100 mg DAILY ORAL 08/04/20 10:00 09/03/20 09:59 08/06/20 09:32 Metoprolol Tartrate (Lopressor) 50 mg Q12HR ORAL 08/06/20 09:00 11/04/20 08:59 08/06/20 20:48 Nitroglycerin (Nitro-Bid) 1 inch TID@0600,1200,1800 TOPIC 08/02/20 06:00 09/01/20 05:59 08/07/20 06:48 Nitroglycerin (Ntg) 0.4 mg Q5M PRN SL Prn Chest Pain 07/29/20 22:45 08/28/20 22:44 Ondansetron HCl (Zofran) 4 mg Q4H PRN IVP Nausea & Vomiting 07/29/20 22:45 08/28/20 22:44 08/06/20 21:28 Pantoprazole (Protonix) 40 mg DAILY ORAL 08/02/20 13:00 09/01/20 12:59 08/07/20 09:44 Polyethylene Glycol (Miralax) 17 gm DAILYPRN PRN ORAL Constipation 07/29/20 22:45 08/28/20 22:44 Sennosides (Senokot) 8.6 mg QHS ORAL 07/30/20 21:00 08/29/20 20:59 08/02/20 22:40 Sevelamer Carbonate (Renvela) 800 mg THREE TIMES A DAY ORAL 08/01/20 09:30 10/30/20 09:29 08/07/20 09:44 Sodium Chloride 1,000 ml @ 500 mls/hr Q2H PRN IVLG sbp<90 during hd 08/07/20 09:00 08/07/20 23:59 Trazodone HCl (Desyrel) 100 mg BEDTIME ORAL 07/30/20 21:00 08/29/20 20:59 08/06/20 20:41 Vitamin B Complex/ Vit C/Folic Acid (Nephrovite) 1 tab DAILY ORAL 07/30/20 09:00 08/29/20 08:59 08/07/20 09:44 Joyce Laurent MD Aug 07, 2020 11:24"
[2020-08-07] MEDS: cefTRIAXone 1 GM in D5W 55 ML IVPB SCH (11:51)
[2020-08-07 12:00] VITALS: BP 155/54
[2020-08-07 16:00] VITALS: BP 146/63
[2020-08-07 20:00] VITALS: BP 166/70
[2020-08-07] MEDS: Sennosides 8.6mg tab ORAL SCH (21:00)
[2020-08-07] MEDS: Atorvastatin 80mg tab ORAL SCH (22:17)
[2020-08-07] MEDS: TraZODone 100mg tab ORAL SCH (22:17)
[2020-08-07] MEDS: Dyna-Hex 2% Top Sol 2oz TOPIC SCH (22:17)
[2020-08-07] MEDS: Epoetin Alfa-EPBX(ESRD on dialysis)4000 units/ml vial SUBQ SCH (22:19)
[2020-08-07] MEDS: Epoetin Alfa-EPBX(ESRD on dialysis)3000 units/ml vial SUBQ SCH (22:19)
[2020-08-08] VITALS: BP 159/67
--- NOTE | 2020-08-08 00:46 | Cardiology Progress Note ---
Subjective DATE OF SERVICE: Aug 07, 2020 BP parameters remain mostly in high normal range. No fever spikes. No CP No c/o SOB. Continues with HD/UF - for fluid management and BP control Monitor with sinus and asymptomatic sinus bradycardia; occasional episodes of Atrial Fibrillation and Non Sustained Ventric tach. Objective Last 24 Hour Vital Signs Date Time Temp Pulse Resp B/P (MAP) Pulse Ox O2 Delivery O2 Flow Rate FiO2 08/07/20 22:24 67 166/91 08/07/20 17:17 146/63 08/07/20 17:16 67 146/63 08/07/20 16:00 98.2 67 20 146/63 (90) 98 08/07/20 15:24 70 08/07/20 12:00 98.0 57 20 155/54 (87) 98 08/07/20 11:51 167/66 08/07/20 11:43 59 08/07/20 09:00 Room Air 08/07/20 08:00 97.9 57 20 167/66 (99) 100 08/07/20 07:52 59 08/07/20 06:48 111/67 08/07/20 04:00 98.9 57 20 111/67 (82) 100 08/07/20 04:00 53 HEENT: normal ENT inspection RHYTHM: NSR, Afib, VT LUNGS: rales bilaterally CARDIAC: normal rate, regular rhythm, normal S1 and S2, other - no rub ABDOMEN: normal bowel sounds, non tender, no organomegaly EXTREMITIES: normal range of motion, non-tender, +1 edema Laboratory Tests Test 08/07/20 02:22 08/07/20 06:53 08/07/20 11:59 08/07/20 16:47 POC Whole Blood Glucose 86 MG/DL (74-106) Pending Pending 127 MG/DL (74-106) H Microbiology Date/Time Source Procedure Growth Status 08/06/20 22:30 Stool Clostridium difficile Toxin Assay - Final Complete Assessment/Plan Assessment/Plan ESRD Ac/chr diastolic CHF Paroxysmal atrial and ventricular arrhythmias Labile Hypertension with hypotension this afternoon. Chronic myocardial ischemia and probable NSTEMI COVID 19 PNA Sinus bradycardia due to meds. HD/UF per renal New PermCath planned Titrating beta tc dosing as needed, with "hold parameter for low HR and BP. Continue metoprolol for anti-arrhythmic benefit. Optimizing BP regimen - meds being adjusted Continue cardiac monitoring Anti-plt therapy Antivirals/steroids/anticoagulation per ID Will ultimately need myocardial perfusion scan - as outpatient, once Covid 19 resolved. Solo Smith MD Aug 08, 2020 00:46
[2020-08-08 04:00] VITALS: BP 162/80
[2020-08-08] MEDS: Nitroglycerin 2% oint pkt TOPIC SCH ×3 (06:00→18:27)
[2020-08-08 08:00] VITALS: BP 151/65
[2020-08-08] MEDS: Heparin 5000 units/ml inj SUBQ SCH ×2 (09:00→21:00)
--- NOTE | 2020-08-08 09:44 | Infectious Diseases Prog Note ---
Assessment/Plan Assessment/Plan A 1. COVID19 pneumonia. s/p ivermectin 2. Diabetes. 3. Hypertension. 4. Renal failure, ESRD 5. COPD. 6. UTI 7. Leukocytosis P 1. Discontinue Ceftriaxone 2. continue isolation 3. Will f/u cultures Subjective ROS Limited/Unobtainable: Yes Constitutional: Reports: anorexia Respiratory: Reports: no symptoms Allergies: Coded Allergies: No Known Allergies (Unverified , 07/29/20) Objective Last 24 Hour Vital Signs Date Time Temp Pulse Resp B/P (MAP) Pulse Ox O2 Delivery O2 Flow Rate FiO2 08/08/20 08:00 97.9 62 20 151/65 (93) 98 08/08/20 06:00 160/80 08/08/20 04:00 99.5 68 18 162/80 (107) 94 08/08/20 04:00 56 08/08/20 00:00 69 08/08/20 00:00 99.1 68 18 159/67 (97) 94 08/07/20 22:24 67 166/91 08/07/20 21:00 Room Air 08/07/20 20:00 68 08/07/20 20:00 99.6 72 20 166/70 (102) 96 08/07/20 17:17 146/63 08/07/20 17:16 67 146/63 08/07/20 16:00 98.2 67 20 146/63 (90) 98 08/07/20 15:24 70 08/07/20 12:00 98.0 57 20 155/54 (87) 98 08/07/20 11:51 167/66 08/07/20 11:43 59 Height (Feet): 5 Height (Inches): 2.00 Weight (Pounds): 189 HEENT: mucous membranes moist Respiratory/Chest: lungs clear Cardiovascular: normal rate, other - RIJ Hd line Abdomen: soft, non tender Extremities: no edema Neurologic/Psychiatric: alert, responsive Microbiology Date/Time Source Procedure Growth Status 08/06/20 22:30 Stool Clostridium difficile Toxin Assay - Final Complete Laboratory Tests Test 08/07/20 11:59 08/07/20 16:47 08/08/20 05:53 POC Whole Blood Glucose Pending 127 MG/DL (74-106) H 70 MG/DL (74-106) L Current Medications Medications (Trade) Dose Ordered Sig/Andrew Route PRN Reason Start Time Stop Time Status Last Admin Dose Admin Acetaminophen (Tylenol) 650 mg Q4H PRN ORAL Temp >100.5 07/29/20 22:45 08/28/20 22:44 08/04/20 00:00 Acetaminophen (Tylenol) 650 mg Q4H PRN ORAL Mild Pain (Pain Scale 1-3) 07/29/20 22:45 08/28/20 22:44 08/06/20 18:57 Amlodipine Besylate (Norvasc) 5 mg BID ORAL 08/04/20 10:00 09/03/20 09:59 08/07/20 17:16 Aspirin (ASA) 81 mg DAILY ORAL 07/30/20 09:00 09/13/20 08:59 08/07/20 09:44 Atorvastatin Calcium (Lipitor) 80 mg BEDTIME ORAL 07/30/20 21:00 10/28/20 20:59 08/07/20 22:17 Budesonide/ Formoterol Fumarate (Symbicort 160/ 4.5) 2 puff BIDRT INH 07/30/20 10:00 10/28/20 09:59 08/07/20 22:18 Ceftriaxone Sodium 1 gm/ Dextrose 55 ml @ 110 mls/hr Q24H IVPB 08/02/20 11:30 08/09/20 11:29 08/07/20 11:51 Chlorhexidine Gluconate (Brittany-Hex 2%) 1 applic DAILY@2000 TOPIC 08/01/20 20:00 10/30/20 19:59 08/07/20 22:17 Dexamethasone Sodium Phosphate (Decadron 10mg/ ml Inj) 6 mg DAILY IV 07/30/20 09:00 08/09/20 08:59 08/07/20 09:44 Diphenhydramine HCl (Benadryl) 25 mg Q6H PRN ORAL Itching 07/29/20 22:45 08/28/20 22:44 Epoetin Matthew (Epoetin Matthew(ESRD on dialysis)) 3,000 unit WED-WED-WED SUBQ 08/02/20 21:00 10/31/20 20:59 08/07/20 22:19 Epoetin Matthew (Epoetin Matthew(ESRD on dialysis)) 4,000 unit WED- SUBQ 08/02/20 21:00 10/31/20 20:59 08/07/20 22:19 Escitalopram Oxalate (Lexapro) 10 mg DAILY ORAL 07/30/20 09:00 08/29/20 08:59 08/07/20 09:44 Famotidine (Pepcid) 20 mg DAILY ORAL 07/30/20 09:00 10/28/20 08:59 08/07/20 09:44 Guaifenesin (Robitussin) 200 mg Q4H PRN ORAL FOR COUGH 07/29/20 22:45 10/27/20 22:44 Heparin Sodium (Porcine) (Heparin 5000 units/ml) 5,000 units EVERY 12 HOURS SUBQ 07/30/20 09:00 09/13/20 08:59 08/07/20 09:46 Losartan Potassium (Cozaar) 100 mg DAILY ORAL 08/04/20 10:00 09/03/20 09:59 08/06/20 09:32 Metoprolol Tartrate (Lopressor) 50 mg Q12HR ORAL 08/06/20 09:00 11/04/20 08:59 08/07/20 22:24 Nitroglycerin (Nitro-Bid) 1 inch TID@0600,1200,1800 TOPIC 08/02/20 06:00 09/01/20 05:59 08/08/20 06:00 Nitroglycerin (Ntg) 0.4 mg Q5M PRN SL Prn Chest Pain 07/29/20 22:45 08/28/20 22:44 Ondansetron HCl (Zofran) 4 mg Q4H PRN IVP Nausea & Vomiting 07/29/20 22:45 08/28/20 22:44 08/06/20 21:28 Pantoprazole (Protonix) 40 mg DAILY ORAL 08/02/20 13:00 09/01/20 12:59 08/07/20 09:44 Polyethylene Glycol (Miralax) 17 gm DAILYPRN PRN ORAL Constipation 07/29/20 22:45 08/28/20 22:44 Sennosides (Senokot) 8.6 mg QHS ORAL 07/30/20 21:00 08/29/20 20:59 08/02/20 22:40 Sevelamer Carbonate (Renvela) 800 mg THREE TIMES A DAY ORAL 08/01/20 09:30 10/30/20 09:29 08/07/20 17:16 Trazodone HCl (Desyrel) 100 mg BEDTIME ORAL 07/30/20 21:00 08/29/20 20:59 08/07/20 22:17 Vitamin B Complex/ Vit C/Folic Acid (Nephrovite) 1 tab DAILY ORAL 07/30/20 09:00 08/29/20 08:59 08/07/20 09:44 Saad Toledo MD Aug 08, 2020 09:44
[2020-08-08] MEDS: Nephrovite tab (Rena-Vite) ORAL SCH (09:48)
[2020-08-08] MEDS: Losartan 50mg tab ORAL SCH (09:48)
[2020-08-08] MEDS: Aspirin Baby 81mg ORAL SCH (09:48)
[2020-08-08] MEDS: Metoprolol Tartrate 50mg tab ORAL SCH ×2 (09:49→21:39)
[2020-08-08] MEDS: dexAMETHasone 10mg/ml Inj IV SCH (09:49)
[2020-08-08 12:00] VITALS: BP 116/60
[2020-08-08] MEDS ORDERED: Heparin Sod 1000 units/ml 10ml IV PRN (12:00)
--- NOTE | 2020-08-08 12:04 | Nephrology Progress Note ---
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 (4) Nephrotic syndrome (5) End-stage renal disease (6) CHF (congestive heart failure), NYHA class II (7) Metabolic acidosis (8) Suspected 2019 novel coronavirus infection (9) Pneumonia (10) Hypotension (11) Angina at rest Plan d/w consultants, dexamethasone, antibiotics, ivernectin, dialysis cath and start HD 07/31, on 07/31 episode of hypotension and afib, nonsustained vtach, bp better with fluids, bp meds restart 08/04, on cardizem , nsr with pvc's , HD 08/01+08/02 +08/03, try to control bp with volume on HD --stable on HD 08/05 +08/07 d/w dr ge+maddie, fever spike 12/5 pm cultured, vanco ordered, fever again 08/06 , check c diff--neg,recheck covid prior to placing permcath, hd 08/09 Subjective Constitutional: Reports: weakness HEENT: Reports: no symptoms Genitourinary: Reports: incontinence Neurologic/Psychiatric: Reports: no symptoms Subjective no cough, no chest pain,+diarrhea less Objective Objective Last 24 Hour Vital Signs Date Time Temp Pulse Resp B/P (MAP) Pulse Ox O2 Delivery O2 Flow Rate FiO2 08/08/20 09:49 62 151/65 08/08/20 09:49 62 151/65 08/08/20 09:48 151/65 08/08/20 09:00 Room Air 08/08/20 08:00 57 08/08/20 08:00 97.9 62 20 151/65 (93) 98 08/08/20 06:00 160/80 08/08/20 04:00 99.5 68 18 162/80 (107) 94 08/08/20 04:00 56 08/08/20 00:00 69 08/08/20 00:00 99.1 68 18 159/67 (97) 94 08/07/20 22:24 67 166/91 08/07/20 21:00 Room Air 08/07/20 20:00 68 08/07/20 20:00 99.6 72 20 166/70 (102) 96 08/07/20 17:17 146/63 08/07/20 17:16 67 146/63 08/07/20 16:00 98.2 67 20 146/63 (90) 98 08/07/20 15:24 70 Intake and Output 08/07/20 08/08/20 19:00 07:00 # Bowel Movements 1 2 Laboratory Tests 08/07/20 16:47: POC Whole Blood Glucose 127H 08/08/20 05:53: POC Whole Blood Glucose 70L 08/08/20 09:44: POC Whole Blood Glucose 114H Height (Feet): 5 Height (Inches): 2.00 Weight (Pounds): 189 General Appearance: no apparent distress, alert, obese EENT: normal ENT inspection Neck: normal alignment Cardiovascular: regular rhythm Respiratory/Chest: lungs clear Abdomen: non tender Extremities: no edema 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
--- NOTE | 2020-08-08 15:46 | Diagnostic Imaging Report ---
Indication:Upper extremity pain Technique: Grayscale and duplex Doppler imaging of the veins in both upper extremities performed in real time utilizing compression and augmentation. Comparison: None Findings: Duplex Doppler interrogation of the veins in the lower extremities performed, with color Doppler and spectral Doppler confirming patency of the left internal jugular vein, left subclavian vein, left axillary vein, and left brachial vein. Additionally, the radial and ulnar veins are compressible. IMPRESSION: No evidence of deep venous thrombosis in the left upper extremity.
[2020-08-08 16:00] VITALS: BP 140/57
--- NOTE | 2020-08-08 16:04 | Diagnostic Imaging Report ---
EXAM: US Duplex Left Upper Extremity Arteries CLINICAL HISTORY: VENOUS ACC TECHNIQUE: Real-time duplex ultrasound scan of the left upper extremity arteries integrating B-mode two-dimensional vascular structure, Doppler spectral analysis and color flow Doppler imaging. COMPARISON: None FINDINGS: Left subclavian artery: No acute findings. No occlusion or significant stenosis on color flow and spectral Doppler imaging. Normal waveform. Left axillary artery: No acute findings. No occlusion or significant stenosis on color flow and spectral Doppler imaging. Normal waveform. Left brachial artery: No acute findings. No occlusion or significant stenosis on color flow and spectral Doppler imaging. Normal waveform. Left radial artery: No acute findings. No occlusion or significant stenosis on color flow and spectral Doppler imaging. Normal waveform. Left ulnar artery: No acute findings. No occlusion or significant stenosis on color flow and spectral Doppler imaging. Normal waveform. Soft tissues: Unremarkable. Other findings: Patent left AV fistula. IMPRESSION: Patent left AV fistula. No hemodynamically significant stenosis or occlusion in the left upper extremity arteries.
[2020-08-08 20:00] VITALS: BP 117/69
[2020-08-08] MEDS: Dyna-Hex 2% Top Sol 2oz TOPIC SCH (20:32)
[2020-08-08] MEDS: Sennosides 8.6mg tab ORAL SCH (21:00)
[2020-08-08] MEDS: Atorvastatin 80mg tab ORAL SCH (21:39)
[2020-08-08] MEDS: TraZODone 100mg tab ORAL SCH (21:39)
[2020-08-09] VITALS: BP 120/74
--- NOTE | 2020-08-09 00:51 | Cardiology Progress Note ---
Subjective DATE OF SERVICE: Aug 08, 2020 BP parameters improved No fever spikes. No CP No c/o SOB. Continues with HD/UF - for fluid management and BP control Monitor with sinus and asymptomatic sinus bradycardia; occasional episodes of Atrial Fibrillation and Non Sustained Ventric tach. New PermCath to be placed for dialysis tomorrow. Objective Last 24 Hour Vital Signs Date Time Temp Pulse Resp B/P (MAP) Pulse Ox O2 Delivery O2 Flow Rate FiO2 08/08/20 21:39 67 117/69 08/08/20 18:27 64 140/57 08/08/20 18:27 140/57 08/08/20 16:00 59 08/08/20 16:00 98.6 64 20 140/57 (84) 98 08/08/20 12:56 116/60 08/08/20 12:00 59 08/08/20 12:00 98.6 61 20 116/60 (78) 98 08/08/20 09:49 62 151/65 08/08/20 09:49 62 151/65 08/08/20 09:48 151/65 08/08/20 09:00 Room Air 08/08/20 08:00 57 08/08/20 08:00 97.9 62 20 151/65 (93) 98 08/08/20 06:00 160/80 08/08/20 04:00 99.5 68 18 162/80 (107) 94 08/08/20 04:00 56 HEENT: normal ENT inspection RHYTHM: NSR, Afib, VT LUNGS: rales bilaterally CARDIAC: normal rate, regular rhythm, normal S1 and S2, other - no rub ABDOMEN: normal bowel sounds, non tender, no organomegaly EXTREMITIES: normal range of motion, non-tender, +1 edema Laboratory Tests Test 08/08/20 05:53 08/08/20 09:44 POC Whole Blood Glucose 70 MG/DL (74-106) L 114 MG/DL (74-106) H Microbiology Date/Time Source Procedure Growth Status 08/06/20 22:30 Stool Clostridium difficile Toxin Assay - Final Complete Assessment/Plan Assessment/Plan ESRD Ac/chr diastolic CHF Paroxysmal atrial and ventricular arrhythmias Labile Hypertension with hypotension this afternoon. Chronic myocardial ischemia and probable NSTEMI COVID 19 PNA Sinus bradycardia due to meds. Infected PermCath Sepsis HD/UF per renal New PermCath planned with dialysis 08/09/20 Titrating beta tc dosing as needed, with "hold parameter for low HR and BP. Continue metoprolol for anti-arrhythmic benefit. Optimizing BP regimen - meds being adjusted Discontinue cardiac monitoring Anti-plt therapy Antivirals/steroids/anticoagulation per ID Will ultimately need myocardial perfusion scan - as outpatient, once Covid 19 resolved. Solo Smith MD Aug 09, 2020 00:51
[2020-08-09 04:00] VITALS: BP 153/60
[2020-08-09] MEDS: Nitroglycerin 2% oint pkt TOPIC SCH ×3 (06:07→17:31)
[2020-08-09 08:00] VITALS: BP 152/84
[2020-08-09] MEDS: Metoprolol Tartrate 50mg tab ORAL SCH ×2 (08:58→21:13)
[2020-08-09] MEDS: Aspirin Baby 81mg ORAL SCH (08:58)
[2020-08-09] MEDS: Losartan 50mg tab ORAL SCH (08:58)
[2020-08-09] MEDS: Nephrovite tab (Rena-Vite) ORAL SCH (08:59)
[2020-08-09] MEDS: Heparin 5000 units/ml inj SUBQ SCH ×2 (09:00→21:00)
--- NOTE | 2020-08-09 11:18 | Nephrology Progress Note ---
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 (4) Nephrotic syndrome (5) End-stage renal disease (6) CHF (congestive heart failure), NYHA class II (7) Metabolic acidosis (8) Suspected 2019 novel coronavirus infection (9) Pneumonia (10) Hypotension (11) Angina at rest Plan d/w consultants, dexamethasone, antibiotics, ivernectin, dialysis cath and start HD 07/31, on 07/31 episode of hypotension and afib, nonsustained vtach, bp better with fluids, bp meds restart 08/04, on cardizem , nsr with pvc's , HD 08/01+08/02 +08/03, try to control bp with volume on HD --stable on HD 08/05 +08/07 d/w dr ge+maddie, fever spike 12/5 pm cultured, vanco ordered, fever again 08/06 , check c diff--neg,recheck covid prior to placing permcath, hd 08/09 Subjective Constitutional: Reports: weakness HEENT: Reports: no symptoms Genitourinary: Reports: incontinence Neurologic/Psychiatric: Reports: no symptoms Subjective no cough, no chest pain,+diarrhea less Objective Objective Last 24 Hour Vital Signs Date Time Temp Pulse Resp B/P (MAP) Pulse Ox O2 Delivery O2 Flow Rate FiO2 08/09/20 08:59 66 152/84 08/09/20 08:58 66 152/84 08/09/20 08:58 152/84 08/09/20 08:00 97.2 66 18 152/84 (106) 94 08/09/20 06:07 153/60 08/09/20 04:00 58 08/09/20 04:00 98.4 61 20 153/60 (91) 95 08/09/20 00:00 98.2 65 20 120/74 (89) 98 08/09/20 00:00 64 08/08/20 21:39 67 117/69 08/08/20 21:00 Room Air 08/08/20 20:00 63 08/08/20 20:00 98.0 67 20 117/69 (85) 95 08/08/20 18:27 64 140/57 08/08/20 18:27 140/57 08/08/20 16:00 59 08/08/20 16:00 98.6 64 20 140/57 (84) 98 08/08/20 12:56 116/60 08/08/20 12:00 59 08/08/20 12:00 98.6 61 20 116/60 (78) 98 Intake and Output 08/08/20 08/09/20 19:00 07:00 Intake Total 210 ml Balance 210 ml Intake Oral 210 ml # Voids 2 Laboratory Tests 08/09/20 00:50: POC Whole Blood Glucose 109H 08/09/20 06:11: POC Whole Blood Glucose 81 Height (Feet): 5 Height (Inches): 2.00 Weight (Pounds): 189 General Appearance: alert EENT: normal ENT inspection Neck: normal alignment Cardiovascular: regular rhythm Respiratory/Chest: lungs clear Abdomen: soft Extremities: no edema 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
--- NOTE | 2020-08-09 11:42 | Infectious Diseases Prog Note ---
"Assessment/Plan Assessment/Plan antibiotics : none A 1. 1. COVID-19 pneumonia. She is on room air with 98 % saturation. s/p ivermectin s/p decadron 2. Diabetes. 3. Hypertension. 4. Renal failure. 5. COPD. 6. proteus | e.coli UTI s/p rx 7. leucocytosis likely secondary to steroids P 1. continue off antibiotics 2. will follow up cultures 3. continue isolation Subjective ROS Limited/Unobtainable: Yes Allergies: Coded Allergies: No Known Allergies (Unverified , 07/29/20) Objective Last 24 Hour Vital Signs Date Time Temp Pulse Resp B/P (MAP) Pulse Ox O2 Delivery O2 Flow Rate FiO2 08/09/20 08:59 66 152/84 08/09/20 08:58 66 152/84 08/09/20 08:58 152/84 08/09/20 08:00 97.2 66 18 152/84 (106) 94 08/09/20 06:07 153/60 08/09/20 04:00 58 08/09/20 04:00 98.4 61 20 153/60 (91) 95 08/09/20 00:00 98.2 65 20 120/74 (89) 98 08/09/20 00:00 64 08/08/20 21:39 67 117/69 08/08/20 21:00 Room Air 08/08/20 20:00 63 08/08/20 20:00 98.0 67 20 117/69 (85) 95 08/08/20 18:27 64 140/57 08/08/20 18:27 140/57 08/08/20 16:00 59 08/08/20 16:00 98.6 64 20 140/57 (84) 98 08/08/20 12:56 116/60 08/08/20 12:00 59 08/08/20 12:00 98.6 61 20 116/60 (78) 98 Height (Feet): 5 Height (Inches): 2.00 Weight (Pounds): 189 Microbiology Date/Time Source Procedure Growth Status 08/07/20 08:00 Blood Blood Culture - Preliminary NO GROWTH AFTER 24 HOURS Resulted 08/07/20 07:50 Blood Blood Culture - Preliminary NO GROWTH AFTER 24 HOURS Resulted 08/06/20 22:30 Stool Clostridium difficile Toxin Assay - Final Complete Laboratory Tests Test 08/09/20 00:50 08/09/20 06:11 POC Whole Blood Glucose 109 MG/DL (74-106) H 81 MG/DL (74-106) Current Medications Medications (Trade) Dose Ordered Sig/Andrew Route PRN Reason Start Time Stop Time Status Last Admin Dose Admin Acetaminophen (Tylenol) 650 mg Q4H PRN ORAL Temp >100.5 07/29/20 22:45 08/28/20 22:44 08/04/20 00:00 Acetaminophen (Tylenol) 650 mg Q4H PRN ORAL Mild Pain (Pain Scale 1-3) 07/29/20 22:45 08/28/20 22:44 08/06/20 18:57 Amlodipine Besylate (Norvasc) 5 mg BID ORAL 08/04/20 10:00 09/03/20 09:59 08/08/20 18:27 Aspirin (ASA) 81 mg DAILY ORAL 07/30/20 09:00 09/13/20 08:59 08/08/20 09:48 Atorvastatin Calcium (Lipitor) 80 mg BEDTIME ORAL 07/30/20 21:00 10/28/20 20:59 08/08/20 21:39 Budesonide/ Formoterol Fumarate (Symbicort 160/ 4.5) 2 puff BIDRT INH 07/30/20 10:00 10/28/20 09:59 08/08/20 22:00 Chlorhexidine Gluconate (Brittany-Hex 2%) 1 applic DAILY@2000 TOPIC 08/01/20 20:00 10/30/20 19:59 08/08/20 20:32 Diphenhydramine HCl (Benadryl) 25 mg Q6H PRN ORAL Itching 07/29/20 22:45 08/28/20 22:44 Epoetin Matthew (Epoetin Matthew(ESRD on dialysis)) 3,000 unit WED-WED-WED SUBQ 08/02/20 21:00 10/31/20 20:59 08/07/20 22:19 Epoetin Matthew (Epoetin Matthew(ESRD on dialysis)) 4,000 unit SUBQ 08/02/20 21:00 10/31/20 20:59 08/07/20 22:19 Escitalopram Oxalate (Lexapro) 10 mg DAILY ORAL 07/30/20 09:00 08/29/20 08:59 08/08/20 09:48 Famotidine (Pepcid) 20 mg DAILY ORAL 07/30/20 09:00 10/28/20 08:59 08/08/20 09:54 Guaifenesin (Robitussin) 200 mg Q4H PRN ORAL FOR COUGH 07/29/20 22:45 10/27/20 22:44 Heparin Sodium (Porcine) (Heparin 5000 units/ml) 5,000 units EVERY 12 HOURS SUBQ 07/30/20 09:00 09/13/20 08:59 08/07/20 09:46 Heparin Sodium (Porcine) (Heparin Sod 1000 units/ml 10ml) 2,000 unit ONCE PRN IV FOR HD USE ONLY 08/08/20 12:00 08/09/20 23:59 Losartan Potassium (Cozaar) 100 mg DAILY ORAL 08/04/20 10:00 09/03/20 09:59 08/08/20 09:48 Metoprolol Tartrate (Lopressor) 50 mg Q12HR ORAL 08/06/20 09:00 11/04/20 08:59 08/08/20 21:39 Nitroglycerin (Nitro-Bid) 1 inch TID@0600,1200,1800 TOPIC 08/02/20 06:00 09/01/20 05:59 08/09/20 06:07 Nitroglycerin (Ntg) 0.4 mg Q5M PRN SL Prn Chest Pain 07/29/20 22:45 08/28/20 22:44 Ondansetron HCl (Zofran) 4 mg Q4H PRN IVP Nausea & Vomiting 07/29/20 22:45 08/28/20 22:44 08/08/20 09:54 Pantoprazole (Protonix) 40 mg DAILY ORAL 08/02/20 13:00 09/01/20 12:59 08/08/20 09:48 Polyethylene Glycol (Miralax) 17 gm DAILYPRN PRN ORAL Constipation 07/29/20 22:45 08/28/20 22:44 08/08/20 09:54 Sennosides (Senokot) 8.6 mg QHS ORAL 07/30/20 21:00 08/29/20 20:59 08/02/20 22:40 Sevelamer Carbonate (Renvela) 800 mg THREE TIMES A DAY ORAL 08/01/20 09:30 10/30/20 09:29 08/08/20 18:27 Sodium Chloride 1,000 ml @ 500 mls/hr Q2H PRN IVLG sbp<90 during hd 08/08/20 12:00 08/09/20 23:59 Trazodone HCl (Desyrel) 100 mg BEDTIME ORAL 07/30/20 21:00 08/29/20 20:59 08/08/20 21:39 Vitamin B Complex/ Vit C/Folic Acid (Nephrovite) 1 tab DAILY ORAL 07/30/20 09:00 08/29/20 08:59 08/08/20 09:48 Joyce Laurent MD Aug 09, 2020 11:42"
[2020-08-09 12:00] VITALS: BP 140/73
[2020-08-09 15:45] VITALS: BP 151/64
[2020-08-09 16:45] LABS: BASOPHILS % (AUTO) 0.5 % (0.0-2.0); HEMATOCRIT 26.5 % (37.0-47.0); HEMOGLOBIN 8.3 G/DL (12.0-16.0); LYMPHOCYTES % (AUTO) 27.7 % (20.0-45.0); MEAN CORPUSCULAR VOLUME 93 FL (80-99); MONOCYTES % (AUTO) 7.7 % (1.0-10.0); NEUTROPHILS % (AUTO) 64.1 % (45.0-75.0); PLATELET COUNT 117 K/UL (150-450); RED BLOOD COUNT 2.84 M/UL (4.20-5.40); RED CELL DISTRIBUTION WIDTH 18.4 % (11.6-14.8); WHITE BLOOD COUNT 13.8 K/UL (4.8-10.8)
[2020-08-09 20:00] VITALS: BP 147/63
[2020-08-09] MEDS: Atorvastatin 80mg tab ORAL SCH (21:12)
[2020-08-09] MEDS: TraZODone 100mg tab ORAL SCH (21:12)
[2020-08-09] MEDS: Sennosides 8.6mg tab ORAL SCH (21:12)
[2020-08-09] MEDS: Dyna-Hex 2% Top Sol 2oz TOPIC SCH (22:09)
[2020-08-09] MEDS: Epoetin Alfa-EPBX(ESRD on dialysis)3000 units/ml vial SUBQ SCH (22:09)
[2020-08-09] MEDS: Epoetin Alfa-EPBX(ESRD on dialysis)4000 units/ml vial SUBQ SCH (22:09)
[2020-08-10] VITALS: BP 132/69
--- NOTE | 2020-08-10 01:16 | Cardiology Progress Note ---
Subjective DATE OF SERVICE: Aug 09, 2020 BP parameters improved No fever spikes. No CP No c/o SOB. Continues with HD/UF - for fluid management and BP control Now off athletic monitor Objective Last 24 Hour Vital Signs Date Time Temp Pulse Resp B/P (MAP) Pulse Ox O2 Delivery O2 Flow Rate FiO2 08/09/20 21:13 62 147/69 08/09/20 21:00 Room Air 08/09/20 17:31 151/64 08/09/20 17:25 66 151/64 08/09/20 15:45 98.1 66 18 151/64 (93) 94 08/09/20 13:01 140/73 08/09/20 12:00 97.5 67 20 140/73 (95) 94 08/09/20 09:00 Room Air 08/09/20 08:59 66 152/84 08/09/20 08:58 66 152/84 08/09/20 08:58 152/84 08/09/20 08:00 97.2 66 18 152/84 (106) 94 08/09/20 06:07 153/60 08/09/20 04:00 58 08/09/20 04:00 98.4 61 20 153/60 (91) 95 HEENT: normal ENT inspection RHYTHM: NSR, Afib, VT LUNGS: rales bilaterally CARDIAC: normal rate, regular rhythm, normal S1 and S2, other - no rub ABDOMEN: normal bowel sounds, non tender, no organomegaly EXTREMITIES: normal range of motion, non-tender, +1 edema Laboratory Tests Test 08/09/20 06:11 08/09/20 16:29 POC Whole Blood Glucose 81 MG/DL (74-106) White Blood Count 13.8 K/UL (4.8-10.8) H Red Blood Count 2.84 M/UL (4.20-5.40) L Hemoglobin 8.3 G/DL (12.0-16.0) L Hematocrit 26.5 % (37.0-47.0) L Mean Corpuscular Volume 93 FL (80-99) Mean Corpuscular Hemoglobin 29.1 PG (27.0-31.0) Mean Corpuscular Hemoglobin Concent 31.2 G/DL (32.0-36.0) L Red Cell Distribution Width 18.4 % (11.6-14.8) H Platelet Count 117 K/UL (150-450) L Mean Platelet Volume 10.2 FL (6.5-10.1) H Neutrophils (%) (Auto) 64.1 % (45.0-75.0) Lymphocytes (%) (Auto) 27.7 % (20.0-45.0) Monocytes (%) (Auto) 7.7 % (1.0-10.0) Eosinophils (%) (Auto) 0.0 % (0.0-3.0) Basophils (%) (Auto) 0.5 % (0.0-2.0) Phosphorus Level 2.1 MG/DL (2.5-4.9) L Microbiology Date/Time Source Procedure Growth Status 08/07/20 08:00 Blood Blood Culture - Preliminary NO GROWTH AFTER 24 HOURS Resulted 08/07/20 07:50 Blood Blood Culture - Preliminary NO GROWTH AFTER 24 HOURS Resulted Assessment/Plan Assessment/Plan ESRD Ac/chr diastolic CHF Paroxysmal atrial and ventricular arrhythmias Labile Hypertension with hypotension this afternoon. Chronic myocardial ischemia and probable NSTEMI COVID 19 PNA Sinus bradycardia due to meds. Infected PermCath Sepsis HD/UF per renal New PermCath planned Titrating beta tc dosing as needed, with "hold parameter for low HR and BP. Continue metoprolol for anti-arrhythmic benefit. Optimizing BP regimen - meds being adjusted Anti-plt therapy Antivirals/steroids/anticoagulation per ID Will ultimately need myocardial perfusion scan - as outpatient, once Covid 19 resolved. Solo Smith MD Aug 10, 2020 01:16
[2020-08-10 04:00] VITALS: BP 141/68
[2020-08-10] MEDS: Nitroglycerin 2% oint pkt TOPIC SCH ×3 (06:05→18:45)
[2020-08-10 08:00] VITALS: BP 147/68
[2020-08-10] MEDS: Heparin 5000 units/ml inj SUBQ SCH ×2 (09:00→23:00)
[2020-08-10] MEDS: Losartan 50mg tab ORAL SCH (09:00)
[2020-08-10] MEDS: Metoprolol Tartrate 50mg tab ORAL SCH ×2 (09:00→22:58)
[2020-08-10] MEDS: Nephrovite tab (Rena-Vite) ORAL SCH (09:44)
[2020-08-10] MEDS: Aspirin Baby 81mg ORAL SCH (09:44)
--- NOTE | 2020-08-10 11:08 | Nephrology Progress Note ---
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 (4) Nephrotic syndrome (5) End-stage renal disease (6) CHF (congestive heart failure), NYHA class II (7) Metabolic acidosis (8) Suspected 2019 novel coronavirus infection (9) Pneumonia (10) Hypotension (11) Angina at rest Plan d/w consultants, dexamethasone, antibiotics, ivernectin, dialysis cath and start HD 07/31, on 07/31 episode of hypotension and afib, nonsustained vtach, bp better with fluids, bp meds restart 08/04, on cardizem , nsr with pvc's , HD 08/01+08/02 +08/03, try to control bp with volume on HD --stable on HD 08/05 +08/07 d/w dr ge+maddie, fever spike 12/5 pm cultured, vanco ordered, fever again 08/06 , check c diff--neg,recheck covid prior to placing permcath, hd 08/10 anemia add venofer Subjective Constitutional: Reports: weakness HEENT: Reports: no symptoms Genitourinary: Reports: no symptoms, incontinence Neurologic/Psychiatric: Reports: no symptoms Subjective no cough, no chest pain,+diarrhea less Objective Objective Last 24 Hour Vital Signs Date Time Temp Pulse Resp B/P (MAP) Pulse Ox O2 Delivery O2 Flow Rate FiO2 08/10/20 06:05 143/71 08/10/20 04:00 97.0 61 16 141/68 (92) 94 08/10/20 00:00 98.2 65 17 132/69 (90) 95 08/09/20 21:13 62 147/69 08/09/20 21:00 Room Air 08/09/20 20:00 98.4 63 18 147/63 (91) 95 08/09/20 17:31 151/64 08/09/20 17:25 66 151/64 08/09/20 15:45 98.1 66 18 151/64 (93) 94 08/09/20 13:01 140/73 08/09/20 12:00 97.5 67 20 140/73 (95) 94 Intake and Output 08/09/20 08/10/20 19:00 07:00 Intake Total 720 ml 320 ml Balance 720 ml 320 ml Intake Oral 720 ml 320 ml # Voids 1 # Bowel Movements 1 Laboratory Tests 08/09/20 16:29: White Blood Count 13.8H, Red Blood Count 2.84L, Hemoglobin 8.3L, Hematocrit 26.5L, Mean Corpuscular Volume 93, Mean Corpuscular Hemoglobin 29.1, Mean Corpuscular Hemoglobin Concent 31.2L, Red Cell Distribution Width 18.4H, Platelet Count 117L, Mean Platelet Volume 10.2H, Neutrophils (%) (Auto) 64.1, Lymphocytes (%) (Auto) 27.7, Monocytes (%) (Auto) 7.7, Eosinophils (%) (Auto) 0.0, Basophils (%) (Auto) 0.5, Phosphorus Level 2.1L Height (Feet): 5 Height (Inches): 2.00 Weight (Pounds): 189 General Appearance: no apparent distress, alert EENT: normal ENT inspection Cardiovascular: normal rate, regular rhythm Respiratory/Chest: lungs clear Abdomen: non tender Extremities: no edema 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
[2020-08-10 12:00] VITALS: BP 147/71
--- NOTE | 2020-08-10 14:43 | Infectious Diseases Prog Note ---
Assessment/Plan Assessment/Plan A 1. COVID19 pneumonia. s/p ivermectin 2. Diabetes. 3. Hypertension. 4. Renal failure, ESRD 5. COPD. 6. UTI 7. Leukocytosis P 1. continue isolation Subjective ROS Limited/Unobtainable: Yes Constitutional: Reports: no symptoms Respiratory: Reports: no symptoms Gastrointestinal/Abdominal: Reports: no symptoms Genitourinary: Reports: no symptoms Allergies: Coded Allergies: No Known Allergies (Unverified , 07/29/20) Objective Last 24 Hour Vital Signs Date Time Temp Pulse Resp B/P (MAP) Pulse Ox O2 Delivery O2 Flow Rate FiO2 08/10/20 12:17 147/71 08/10/20 12:00 97.9 64 18 147/71 (96) 97 08/10/20 09:00 Room Air 08/10/20 09:00 63 147/68 08/10/20 09:00 63 147/68 08/10/20 08:00 97.0 63 18 147/68 (94) 96 08/10/20 06:05 143/71 08/10/20 04:00 97.0 61 16 141/68 (92) 94 08/10/20 00:00 98.2 65 17 132/69 (90) 95 08/09/20 21:13 62 147/69 08/09/20 21:00 Room Air 08/09/20 20:00 98.4 63 18 147/63 (91) 95 08/09/20 17:31 151/64 08/09/20 17:25 66 151/64 08/09/20 15:45 98.1 66 18 151/64 (93) 94 Height (Feet): 5 Height (Inches): 2.00 Weight (Pounds): 189 General Appearance: no acute distress HEENT: mucous membranes moist Respiratory/Chest: lungs clear Cardiovascular: normal rate Abdomen: soft, non tender Neurologic/Psychiatric: alert, responsive Laboratory Tests Test 08/09/20 16:29 White Blood Count 13.8 K/UL (4.8-10.8) H Red Blood Count 2.84 M/UL (4.20-5.40) L Hemoglobin 8.3 G/DL (12.0-16.0) L Hematocrit 26.5 % (37.0-47.0) L Mean Corpuscular Volume 93 FL (80-99) Mean Corpuscular Hemoglobin 29.1 PG (27.0-31.0) Mean Corpuscular Hemoglobin Concent 31.2 G/DL (32.0-36.0) L Red Cell Distribution Width 18.4 % (11.6-14.8) H Platelet Count 117 K/UL (150-450) L Mean Platelet Volume 10.2 FL (6.5-10.1) H Neutrophils (%) (Auto) 64.1 % (45.0-75.0) Lymphocytes (%) (Auto) 27.7 % (20.0-45.0) Monocytes (%) (Auto) 7.7 % (1.0-10.0) Eosinophils (%) (Auto) 0.0 % (0.0-3.0) Basophils (%) (Auto) 0.5 % (0.0-2.0) Phosphorus Level 2.1 MG/DL (2.5-4.9) L Current Medications Medications (Trade) Dose Ordered Sig/Andrew Route PRN Reason Start Time Stop Time Status Last Admin Dose Admin Acetaminophen (Tylenol) 650 mg Q4H PRN ORAL Temp >100.5 07/29/20 22:45 08/28/20 22:44 08/04/20 00:00 Acetaminophen (Tylenol) 650 mg Q4H PRN ORAL Mild Pain (Pain Scale 1-3) 07/29/20 22:45 08/28/20 22:44 08/06/20 18:57 Amlodipine Besylate (Norvasc) 5 mg BID ORAL 08/04/20 10:00 09/03/20 09:59 08/08/20 18:27 Aspirin (ASA) 81 mg DAILY ORAL 07/30/20 09:00 09/13/20 08:59 08/10/20 09:44 Atorvastatin Calcium (Lipitor) 80 mg BEDTIME ORAL 07/30/20 21:00 10/28/20 20:59 08/09/20 21:12 Budesonide/ Formoterol Fumarate (Symbicort 160/ 4.5) 2 puff BIDRT INH 07/30/20 10:00 10/28/20 09:59 08/08/20 22:00 Chlorhexidine Gluconate (Brittany-Hex 2%) 1 applic DAILY@1999 TOPIC 08/01/20 20:00 10/30/20 19:59 08/09/20 22:09 Diphenhydramine HCl (Benadryl) 25 mg Q6H PRN ORAL Itching 07/29/20 22:45 08/28/20 22:44 Epoetin Matthew (Epoetin Matthew(ESRD on dialysis)) 3,000 unit WED- SUBQ 08/02/20 21:00 10/31/20 20:59 08/09/20 22:09 Epoetin Matthew (Epoetin Matthew(ESRD on dialysis)) 4,000 unit WED- SUBQ 08/02/20 21:00 10/31/20 20:59 08/09/20 22:09 Escitalopram Oxalate (Lexapro) 10 mg DAILY ORAL 07/30/20 09:00 08/29/20 08:59 08/10/20 09:44 Famotidine (Pepcid) 20 mg DAILY ORAL 07/30/20 09:00 10/28/20 08:59 08/10/20 09:44 Guaifenesin (Robitussin) 200 mg Q4H PRN ORAL FOR COUGH 07/29/20 22:45 10/27/20 22:44 Heparin Sodium (Porcine) (Heparin 5000 units/ml) 5,000 units EVERY 12 HOURS SUBQ 07/30/20 09:00 09/13/20 08:59 08/07/20 09:46 Iron Sucrose 100 mg/Sodium Chloride 60 ml @ 240 mls/hr BEDTIME IVPB 08/10/20 21:00 08/14/20 21:14 Losartan Potassium (Cozaar) 100 mg DAILY ORAL 08/04/20 10:00 09/03/20 09:59 08/08/20 09:48 Metoprolol Tartrate (Lopressor) 50 mg Q12HR ORAL 08/06/20 09:00 11/04/20 08:59 08/09/20 21:13 Nitroglycerin (Nitro-Bid) 1 inch TID@0600,1200,1800 TOPIC 08/02/20 06:00 09/01/20 05:59 08/10/20 12:17 Nitroglycerin (Ntg) 0.4 mg Q5M PRN SL Prn Chest Pain 07/29/20 22:45 08/28/20 22:44 Ondansetron HCl (Zofran) 4 mg Q4H PRN IVP Nausea & Vomiting 07/29/20 22:45 08/28/20 22:44 08/08/20 09:54 Pantoprazole (Protonix) 40 mg DAILY ORAL 08/02/20 13:00 09/01/20 12:59 08/10/20 09:47 Polyethylene Glycol (Miralax) 17 gm DAILYPRN PRN ORAL Constipation 07/29/20 22:45 08/28/20 22:44 08/08/20 09:54 Sennosides (Senokot) 8.6 mg QHS ORAL 07/30/20 21:00 08/29/20 20:59 08/09/20 21:12 Sevelamer Carbonate (Renvela) 800 mg THREE TIMES A DAY ORAL 08/01/20 09:30 10/30/20 09:29 08/10/20 14:33 Trazodone HCl (Desyrel) 100 mg BEDTIME ORAL 07/30/20 21:00 08/29/20 20:59 08/09/20 21:12 Vitamin B Complex/ Vit C/Folic Acid (Nephrovite) 1 tab DAILY ORAL 07/30/20 09:00 08/29/20 08:59 08/10/20 09:44 Saad Toledo MD Aug 10, 2020 14:43
[2020-08-10 16:20] VITALS: BP 151/65
[2020-08-10 20:00] VITALS: BP 152/65
[2020-08-10] MEDS: Dyna-Hex 2% Top Sol 2oz TOPIC SCH (22:57)
[2020-08-10] MEDS: Iron Sucrose 100 MG in NS 55 ML IVPB SCH (22:57)
[2020-08-10] MEDS: Sennosides 8.6mg tab ORAL SCH (22:58)
[2020-08-10] MEDS: TraZODone 100mg tab ORAL SCH (22:58)
[2020-08-10] MEDS: Atorvastatin 80mg tab ORAL SCH (22:58)
[2020-08-11] VITALS: BP 146/69
--- NOTE | 2020-08-11 02:29 | Cardiology Progress Note ---
Subjective DATE OF SERVICE: Aug 10, 2020 BP parameters improved No fever spikes. No CP No c/o SOB. Continues with HD/UF - for fluid management and BP control Objective Last 24 Hour Vital Signs Date Time Temp Pulse Resp B/P (MAP) Pulse Ox O2 Delivery O2 Flow Rate FiO2 08/11/20 00:00 98.2 70 16 146/69 (94) 95 08/10/20 22:58 73 152/65 08/10/20 21:00 Room Air 08/10/20 20:00 98.4 73 17 152/65 (94) 96 08/10/20 18:47 71 150/66 08/10/20 18:45 137/61 08/10/20 16:20 98.8 73 18 151/65 (93) 96 08/10/20 12:17 147/71 08/10/20 12:00 97.9 64 18 147/71 (96) 97 08/10/20 09:00 Room Air 08/10/20 09:00 63 147/68 08/10/20 09:00 63 147/68 08/10/20 08:00 97.0 63 18 147/68 (94) 96 08/10/20 06:05 143/71 08/10/20 04:00 97.0 61 16 141/68 (92) 94 HEENT: normal ENT inspection RHYTHM: NSR, Afib, VT LUNGS: rales bilaterally CARDIAC: normal rate, regular rhythm, normal S1 and S2, other - no rub ABDOMEN: normal bowel sounds, non tender, no organomegaly EXTREMITIES: normal range of motion, non-tender, +1 edema Assessment/Plan Assessment/Plan ESRD Ac/chr diastolic CHF Paroxysmal atrial and ventricular arrhythmias Labile Hypertension with hypotension this afternoon. Chronic myocardial ischemia and probable NSTEMI COVID 19 PNA Sinus bradycardia due to meds; asymptomatic Infected PermCath Sepsis HD/UF per renal New PermCath planned Titrating beta tc dosing as needed, with "hold parameter for low HR and BP. Continue metoprolol for anti-arrhythmic benefit. Optimizing BP regimen - meds being adjusted Anti-plt therapy Antivirals/steroids/anticoagulation per ID Will ultimately need myocardial perfusion scan - as outpatient, once Covid 19 resolved. Solo Smith MD Aug 11, 2020 02:29
[2020-08-11 04:00] VITALS: BP 147/56
[2020-08-11] MEDS: Nitroglycerin 2% oint pkt TOPIC SCH ×3 (05:51→18:42)
[2020-08-11 08:00] VITALS: BP 143/66
[2020-08-11] MEDS: Heparin 5000 units/ml inj SUBQ SCH ×2 (09:00→21:00)
[2020-08-11] MEDS: Aspirin Baby 81mg ORAL SCH (09:04)
[2020-08-11] MEDS: Nephrovite tab (Rena-Vite) ORAL SCH (09:04)
[2020-08-11] MEDS: Losartan 50mg tab ORAL SCH (09:06)
[2020-08-11] MEDS: Metoprolol Tartrate 50mg tab ORAL SCH ×2 (09:08→21:46)
--- NOTE | 2020-08-11 11:02 | Nephrology Progress Note ---
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 (4) Nephrotic syndrome (5) End-stage renal disease (6) CHF (congestive heart failure), NYHA class II (7) Metabolic acidosis (8) Suspected 2019 novel coronavirus infection (9) Pneumonia (10) Hypotension (11) Angina at rest Plan d/w consultants, dexamethasone, antibiotics, ivernectin, dialysis cath and start HD 07/31, on 07/31 episode of hypotension and afib, nonsustained vtach, bp better with fluids, bp meds restart 08/04, on cardizem , nsr with pvc's , HD 08/01+08/02 +08/03, try to control bp with volume on HD --stable on HD 08/05 +08/07 d/w dr ge+maddie, fever spike 12/5 pm cultured, vanco ordered, fever again 08/06 , check c diff--neg,recheck covid prior to placing permcath, hd 08/10 anemia add venofer Subjective Constitutional: Reports: weakness HEENT: Reports: no symptoms Genitourinary: Reports: no symptoms, incontinence Neurologic/Psychiatric: Reports: no symptoms Subjective no cough, no chest pain Objective Objective Last 24 Hour Vital Signs Date Time Temp Pulse Resp B/P (MAP) Pulse Ox O2 Delivery O2 Flow Rate FiO2 08/11/20 09:23 Room Air 08/11/20 09:08 75 129/64 08/11/20 09:06 129/64 08/11/20 09:00 74 129/59 08/11/20 08:00 98.7 82 19 143/66 (91) 94 08/11/20 05:51 147/56 08/11/20 04:00 98.2 58 17 147/56 (86) 95 08/11/20 00:00 98.2 70 16 146/69 (94) 95 08/10/20 22:58 73 152/65 08/10/20 21:00 Room Air 08/10/20 20:00 98.4 73 17 152/65 (94) 96 08/10/20 18:47 71 150/66 08/10/20 18:45 137/61 12/12/20 16:20 98.8 73 18 151/65 (93) 96 08/10/20 12:17 147/71 08/10/20 12:00 97.9 64 18 147/71 (96) 97 Intake and Output 08/10/20 08/11/20 19:00 07:00 Intake Total 420 ml Output Total 2000 ml Balance -2000 ml 420 ml Intake Oral 360 ml IV Total 60 ml Hemodialysis UF 2000 ml Laboratory Tests 08/11/20 04:36: POC Whole Blood Glucose 78 Height (Feet): 5 Height (Inches): 2.00 Weight (Pounds): 189 General Appearance: no apparent distress, alert EENT: normal ENT inspection Neck: normal alignment Cardiovascular: regular rhythm Respiratory/Chest: lungs clear Extremities: no edema 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
[2020-08-11 12:00] VITALS: BP 131/83
[2020-08-11 16:00] VITALS: BP 129/86
[2020-08-11 20:00] VITALS: BP 134/63
[2020-08-11] MEDS: Dyna-Hex 2% Top Sol 2oz TOPIC SCH ×2 (20:00→21:56)
[2020-08-11] MEDS: Iron Sucrose 100 MG in NS 55 ML IVPB SCH (21:00)
[2020-08-11] MEDS: TraZODone 100mg tab ORAL SCH (21:46)
[2020-08-11] MEDS: Atorvastatin 80mg tab ORAL SCH (21:46)
[2020-08-11] MEDS: Sennosides 8.6mg tab ORAL SCH (21:46)
[2020-08-12] VITALS: BP 148/66
--- NOTE | 2020-08-12 02:37 | Cardiology Progress Note ---
Subjective DATE OF SERVICE: Aug 11, 2020 BP parameters improved No fever spikes. No CP No c/o SOB. Continues with HD/UF - for fluid management and BP control New PermCath to be placed. Objective Last 24 Hour Vital Signs Date Time Temp Pulse Resp B/P (MAP) Pulse Ox O2 Delivery O2 Flow Rate FiO2 08/11/20 21:46 79 154/79 08/11/20 18:42 73 160/74 08/11/20 18:42 160/74 08/11/20 16:00 98.6 81 17 129/86 (100) 96 08/11/20 12:26 131/83 08/11/20 12:00 98.0 89 19 131/83 (99) 96 08/11/20 09:23 Room Air 08/11/20 09:08 75 129/64 08/11/20 09:06 129/64 08/11/20 09:00 74 129/59 08/11/20 08:00 98.7 82 19 143/66 (91) 94 08/11/20 05:51 147/56 08/11/20 04:00 98.2 58 17 147/56 (86) 95 HEENT: normal ENT inspection RHYTHM: NSR, Afib, VT LUNGS: rales bilaterally CARDIAC: normal rate, regular rhythm, normal S1 and S2, other - no rub ABDOMEN: normal bowel sounds, non tender, no organomegaly EXTREMITIES: normal range of motion, non-tender, +1 edema Laboratory Tests Test 08/11/20 04:36 08/11/20 11:22 08/11/20 17:07 POC Whole Blood Glucose 78 MG/DL (74-106) 121 MG/DL (74-106) H 96 MG/DL (74-106) Assessment/Plan Assessment/Plan ESRD Ac/chr diastolic CHF Paroxysmal atrial and ventricular arrhythmias Labile Hypertension with hypotension this afternoon. Chronic myocardial ischemia and probable NSTEMI COVID 19 PNA Sinus bradycardia due to meds; asymptomatic Infected PermCath Sepsis HD/UF per renal New PermCath planned Titrating beta ct dosing as needed, with "hold parameter for low HR and BP. Continue metoprolol for anti-arrhythmic benefit. Optimizing BP regimen - meds being adjusted Anti-plt therapy Antivirals/steroids/anticoagulation per ID Will ultimately need myocardial perfusion scan - as outpatient, once Covid 19 resolved. Solo Smith MD Aug 12, 2020 02:37
[2020-08-12 04:00] VITALS: BP 158/61
[2020-08-12] MEDS: Nitroglycerin 2% oint pkt TOPIC SCH ×3 (06:05→17:07)
[2020-08-12 08:00] VITALS: BP 123/62
[2020-08-12] MEDS: Losartan 50mg tab ORAL SCH (09:00)
[2020-08-12] MEDS: Metoprolol Tartrate 50mg tab ORAL SCH ×2 (09:00→21:00)
[2020-08-12] MEDS: Heparin 5000 units/ml inj SUBQ SCH ×2 (09:00→21:00)
[2020-08-12 10:09] LABS: HEMATOCRIT 23.9 % (37.0-47.0); HEMOGLOBIN 7.6 G/DL (12.0-16.0); MEAN CORPUSCULAR VOLUME 92 FL (80-99); PLATELET COUNT 123 K/UL (150-450); RED CELL DISTRIBUTION WIDTH 19.7 % (11.6-14.8); WHITE BLOOD COUNT 7.1 K/UL (4.8-10.8)
[2020-08-12] MEDS: Nephrovite tab (Rena-Vite) ORAL SCH (10:32)
[2020-08-12] MEDS: Aspirin Baby 81mg ORAL SCH (10:32)
[2020-08-12 10:36] LABS: ALBUMIN 2.1 G/DL (3.4-5.0); ALBUMIN/GLOBULIN RATIO 0.6 (1.0-2.7); BILIRUBIN,TOTAL 0.2 MG/DL (0.2-1.0); CALCIUM 7.4 MG/DL (8.5-10.1); CREATININE 4.9 MG/DL (0.55-1.30); PHOSPHORUS 2.2 MG/DL (2.5-4.9); POTASSIUM 3.3 MMOL/L (3.5-5.1)
[2020-08-12] MEDS ORDERED: Heparin Sod 1000 units/ml 10ml IV ONE (11:00)
[2020-08-12 12:00] VITALS: BP 126/57
--- NOTE | 2020-08-12 12:24 | Infectious Diseases Prog Note ---
"Assessment/Plan Assessment/Plan antibiotics : none A 1. 1. COVID-19 pneumonia. She is on room air with 96 % saturation. s/p ivermectin s/p decadron 2. Diabetes. 3. Hypertension. 4. Renal failure. 5. COPD. 6. proteus | e.coli UTI s/p rx 7. leucocytosis likely secondary to steroids P 1. continue off antibiotics 2. will follow up cultures 3. continue isolation Subjective Constitutional: Denies: fever, chills Respiratory: Denies: shortness of breath, dry cough Gastrointestinal/Abdominal: Reports: nausea, vomiting; Denies: diarrhea Musculoskeletal: Denies: pain Allergies: Coded Allergies: No Known Allergies (Unverified , 07/29/20) Objective Last 24 Hour Vital Signs Date Time Temp Pulse Resp B/P (MAP) Pulse Ox O2 Delivery O2 Flow Rate FiO2 08/12/20 11:10 97.9 08/12/20 10:54 123/62 08/12/20 09:00 83 123/62 08/12/20 09:00 83 123/62 08/12/20 09:00 123/62 08/12/20 08:00 97.9 83 19 123/62 (82) 96 08/12/20 06:05 153/68 08/12/20 04:00 98.4 83 17 158/61 (93) 94 08/12/20 00:00 99.5 71 17 148/66 (93) 93 08/11/20 21:46 79 154/79 08/11/20 21:00 Room Air 08/11/20 20:00 98.1 67 17 134/63 (86) 95 08/11/20 18:42 73 160/74 08/11/20 18:42 160/74 08/11/20 16:00 98.6 81 17 129/86 (100) 96 08/11/20 12:26 131/83 Height (Feet): 5 Height (Inches): 2.00 Weight (Pounds): 189 Laboratory Tests Test 08/11/20 17:07 08/12/20 09:50 POC Whole Blood Glucose 96 MG/DL (74-106) White Blood Count 7.1 K/UL (4.8-10.8) Red Blood Count 2.60 M/UL (4.20-5.40) L Hemoglobin 7.6 G/DL (12.0-16.0) L Hematocrit 23.9 % (37.0-47.0) L Mean Corpuscular Volume 92 FL (80-99) Mean Corpuscular Hemoglobin 29.5 PG (27.0-31.0) Mean Corpuscular Hemoglobin Concent 32.0 G/DL (32.0-36.0) Red Cell Distribution Width 19.7 % (11.6-14.8) H Platelet Count 123 K/UL (150-450) L Mean Platelet Volume 9.1 FL (6.5-10.1) Neutrophils (%) (Auto) % (45.0-75.0) Lymphocytes (%) (Auto) % (20.0-45.0) Monocytes (%) (Auto) % (1.0-10.0) Eosinophils (%) (Auto) % (0.0-3.0) Basophils (%) (Auto) % (0.0-2.0) Differential Total Cells Counted 100 Neutrophils % (Manual) 65 % (45-75) Lymphocytes % (Manual) 26 % (20-45) Monocytes % (Manual) 8 % (1-10) Eosinophils % (Manual) 1 % (0-3) Basophils % (Manual) 0 % (0-2) Band Neutrophils 0 % (0-8) Platelet Estimate Decreased L Platelet Morphology Normal Hypochromasia 1+ Anisocytosis 2+ Sodium Level 138 MMOL/L (136-145) Potassium Level 3.3 MMOL/L (3.5-5.1) L Chloride Level 102 MMOL/L (98-107) Carbon Dioxide Level 28 MMOL/L (21-32) Anion Gap 9 mmol/L (5-15) Blood Urea Nitrogen 57 mg/dL (7-18) H Creatinine 4.9 MG/DL (0.55-1.30) H Estimat Glomerular Filtration Rate 10.7 mL/min (>60) Glucose Level 127 MG/DL (74-106) H Calcium Level 7.4 MG/DL (8.5-10.1) L Phosphorus Level 2.2 MG/DL (2.5-4.9) L Total Bilirubin 0.2 MG/DL (0.2-1.0) Aspartate Amino Transf (AST/SGOT) 24 U/L (15-37) Alanine Aminotransferase (ALT/SGPT) 22 U/L (12-78) Alkaline Phosphatase 53 U/L (46-116) Total Protein 5.6 G/DL (6.4-8.2) L Albumin 2.1 G/DL (3.4-5.0) L Globulin 3.5 g/dL Albumin/Globulin Ratio 0.6 (1.0-2.7) L Current Medications Medications (Trade) Dose Ordered Sig/Andrew Route PRN Reason Start Time Stop Time Status Last Admin Dose Admin Acetaminophen (Tylenol) 650 mg Q4H PRN ORAL Mild Pain (Pain Scale 1-3) 07/29/20 22:45 08/28/20 22:44 08/12/20 10:40 Acetaminophen (Tylenol) 650 mg Q4H PRN ORAL Temp >100.5 07/29/20 22:45 08/28/20 22:44 08/04/20 00:00 Amlodipine Besylate (Norvasc) 5 mg BID ORAL 08/04/20 10:00 09/03/20 09:59 08/11/20 18:42 Aspirin (ASA) 81 mg DAILY ORAL 07/30/20 09:00 09/13/20 08:59 08/12/20 10:32 Atorvastatin Calcium (Lipitor) 80 mg BEDTIME ORAL 07/30/20 21:00 10/28/20 20:59 08/11/20 21:46 Budesonide/ Formoterol Fumarate (Symbicort 160/ 4.5) 2 puff BIDRT INH 07/30/20 10:00 10/28/20 09:59 08/12/20 10:39 Chlorhexidine Gluconate (Brittany-Hex 2%) 1 applic DAILY@2000 TOPIC 08/01/20 20:00 10/30/20 19:59 08/11/20 21:56 Diphenhydramine HCl (Benadryl) 25 mg Q6H PRN ORAL Itching 07/29/20 22:45 08/28/20 22:44 Epoetin Matthew (Epoetin Matthew(ESRD on dialysis)) 3,000 unit WED-WED-WED SUBQ 08/02/20 21:00 10/31/20 20:59 08/09/20 22:09 Epoetin Matthew (Epoetin Matthew(ESRD on dialysis)) 4,000 unit WED-WED-WED SUBQ 08/02/20 21:00 10/31/20 20:59 08/09/20 22:09 Escitalopram Oxalate (Lexapro) 10 mg DAILY ORAL 07/30/20 09:00 08/29/20 08:59 08/12/20 10:32 Famotidine (Pepcid) 20 mg DAILY ORAL 07/30/20 09:00 10/28/20 08:59 08/12/20 10:32 Guaifenesin (Robitussin) 200 mg Q4H PRN ORAL FOR COUGH 07/29/20 22:45 10/27/20 22:44 Heparin Sodium (Porcine) (Heparin 5000 units/ml) 5,000 units EVERY 12 HOURS SUBQ 07/30/20 09:00 09/13/20 08:59 08/10/20 23:00 Iron Sucrose 100 mg/Sodium Chloride 60 ml @ 240 mls/hr BEDTIME IVPB 08/10/20 21:00 08/14/20 21:14 08/11/20 21:00 Losartan Potassium (Cozaar) 100 mg DAILY ORAL 08/04/20 10:00 09/03/20 09:59 08/11/20 09:06 Metoprolol Tartrate (Lopressor) 50 mg Q12HR ORAL 08/06/20 09:00 11/04/20 08:59 08/11/20 21:46 Nitroglycerin (Nitro-Bid) 1 inch TID@0600,1200,1800 TOPIC 08/02/20 06:00 09/01/20 05:59 08/12/20 10:54 Nitroglycerin (Ntg) 0.4 mg Q5M PRN SL Prn Chest Pain 07/29/20 22:45 08/28/20 22:44 Ondansetron HCl (Zofran) 4 mg Q4H PRN IVP Nausea & Vomiting 07/29/20 22:45 08/28/20 22:44 08/08/20 09:54 Pantoprazole (Protonix) 40 mg DAILY ORAL 08/02/20 13:00 09/01/20 12:59 08/12/20 10:32 Polyethylene Glycol (Miralax) 17 gm DAILYPRN PRN ORAL Constipation 07/29/20 22:45 08/28/20 22:44 08/08/20 09:54 Sennosides (Senokot) 8.6 mg QHS ORAL 07/30/20 21:00 08/29/20 20:59 08/11/20 21:46 Sevelamer Carbonate (Renvela) 800 mg THREE TIMES A DAY ORAL 08/01/20 09:30 10/30/20 09:29 08/12/20 12:09 Sodium Chloride 1,000 ml @ 500 mls/hr Q2H PRN IVLG sbp<90 during hd 08/12/20 11:00 09/11/20 10:59 Trazodone HCl (Desyrel) 100 mg BEDTIME ORAL 07/30/20 21:00 08/29/20 20:59 08/11/20 21:46 Vitamin B Complex/ Vit C/Folic Acid (Nephrovite) 1 tab DAILY ORAL 07/30/20 09:00 08/29/20 08:59 08/12/20 10:32 Joyce Laurent MD Aug 12, 2020 12:24"
--- NOTE | 2020-08-12 14:24 | Nephrology Progress Note ---
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 (4) Nephrotic syndrome (5) End-stage renal disease (6) CHF (congestive heart failure), NYHA class II (7) Metabolic acidosis (8) Suspected 2019 novel coronavirus infection (9) Pneumonia (10) Hypotension (11) Angina at rest Plan d/w consultants, dexamethasone, antibiotics, ivernectin given dialysis cath and start HD 07/31, on 07/31 episode of hypotension and afib, nonsustained vtach, bp better with fluids, bp meds restart 08/04, on cardizem , nsr with pvc's , HD 08/01+08/02 +08/03, try to control bp with volume on HD --stable on HD 08/05 +08/07 d/w dr ge+maddie, fever spike 125 pm cultured, vanco ordered, fever again 08/06 , check c diff--neg,recheck covid prior to placing permcath, hd 08/10+08/12 anemia add venofer Subjective Constitutional: Reports: weakness HEENT: Reports: no symptoms Genitourinary: Reports: incontinence Subjective no cough, no chest pain Objective Objective Last 24 Hour Vital Signs Date Time Temp Pulse Resp B/P (MAP) Pulse Ox O2 Delivery O2 Flow Rate FiO2 08/12/20 12:00 96.8 70 18 126/57 (80) 96 08/12/20 11:10 97.9 08/12/20 10:54 123/62 08/12/20 09:00 83 123/62 08/12/20 09:00 83 123/62 08/12/20 09:00 123/62 08/12/20 09:00 Room Air 08/12/20 08:00 97.9 83 19 123/62 (82) 96 08/12/20 06:05 153/68 08/12/20 04:00 98.4 83 17 158/61 (93) 94 08/12/20 00:00 99.5 71 17 148/66 (93) 93 08/11/20 21:46 79 154/79 08/11/20 21:00 Room Air 08/11/20 20:00 98.1 67 17 134/63 (86) 95 08/11/20 18:42 73 160/74 08/11/20 18:42 160/74 08/11/20 16:00 98.6 81 17 129/86 (100) 96 Intake and Output 08/11/20 08/12/20 19:00 07:00 Intake Total 840 ml Balance 840 ml Intake Oral 240 ml Other 600 ml # Voids 1 # Bowel Movements 1 Laboratory Tests 08/11/20 17:07: POC Whole Blood Glucose 96 08/12/20 09:50: White Blood Count 7.1, Red Blood Count 2.60L, Hemoglobin 7.6L, Hematocrit 23.9L, Mean Corpuscular Volume 92, Mean Corpuscular Hemoglobin 29.5, Mean Corpuscular Hemoglobin Concent 32.0, Red Cell Distribution Width 19.7H, Platelet Count 123L, Mean Platelet Volume 9.1, Neutrophils (%) (Auto) , Lymphocytes (%) (Auto) , Monocytes (%) (Auto) , Eosinophils (%) (Auto) , Basophils (%) (Auto) , Differential Total Cells Counted 100, Neutrophils % (Manual) 65, Lymphocytes % (Manual) 26, Monocytes % (Manual) 8, Eosinophils % (Manual) 1, Basophils % (Manual) 0, Band Neutrophils 0, Platelet Estimate DecreasedL, Platelet Morphology Normal, Hypochromasia 1+, Anisocytosis 2+, Sodium Level 138, Potassium Level 3.3L, Chloride Level 102, Carbon Dioxide Level 28, Anion Gap 9, Blood Urea Nitrogen 57H, Creatinine 4.9H, Estimat Glomerular Filtration Rate 10.7, Glucose Level 127H, Calcium Level 7.4L, Phosphorus Level 2.2L, Total Bilirubin 0.2, Aspartate Amino Transf (AST/SGOT) 24, Alanine Aminotransferase (ALT/SGPT) 22, Alkaline Phosphatase 53, Total Protein 5.6L, Albumin 2.1L, Globulin 3.5, Albumin/Globulin Ratio 0.6L Height (Feet): 5 Height (Inches): 2.00 Weight (Pounds): 189 General Appearance: no apparent distress, alert EENT: normal ENT inspection Neck: normal alignment Cardiovascular: normal rate, regular rhythm Respiratory/Chest: lungs clear Abdomen: non tender Extremities: no edema Neurologic: key attendant II-XII grossly normal Christopher Andres MD Aug 12, 2020 14:24
[2020-08-12 16:06] VITALS: BP 135/66
[2020-08-12 20:00] VITALS: BP 153/69
[2020-08-12] MEDS: Iron Sucrose 100 MG in NS 55 ML IVPB SCH ×2 (21:09→21:10)
[2020-08-12] MEDS: Atorvastatin 80mg tab ORAL SCH (21:10)
[2020-08-12] MEDS: TraZODone 100mg tab ORAL SCH (21:10)
[2020-08-12] MEDS: Epoetin Alfa-EPBX(ESRD on dialysis)10,000 unit/ml vial SUBQ SCH (21:11)
[2020-08-12] MEDS: Sennosides 8.6mg tab ORAL SCH (21:11)
[2020-08-13 00:04] VITALS: BP 139/69
--- NOTE | 2020-08-13 01:36 | Cardiology Progress Note ---
Subjective DATE OF SERVICE: Aug 12, 2020 BP parameters improved No fever spikes. No CP No c/o SOB. Continues with HD/UF - for fluid management and BP control New PermCath to be placed. Drop in hemoglobin noted Objective Last 24 Hour Vital Signs Date Time Temp Pulse Resp B/P (MAP) Pulse Ox O2 Delivery O2 Flow Rate FiO2 08/13/20 00:04 98.0 73 17 139/69 (92) 96 08/12/20 21:00 70 153/69 08/12/20 20:37 Room Air 08/12/20 20:00 98.3 70 16 153/69 (97) 95 08/12/20 18:00 66 135/66 08/12/20 17:38 98.2 08/12/20 17:07 135/66 08/12/20 16:06 98.2 66 18 135/66 (89) 97 08/12/20 12:00 96.8 70 18 126/57 (80) 96 08/12/20 11:10 97.9 08/12/20 10:54 123/62 08/12/20 09:00 83 123/62 08/12/20 09:00 83 123/62 08/12/20 09:00 123/62 08/12/20 09:00 Room Air 08/12/20 08:00 97.9 83 19 123/62 (82) 96 08/12/20 06:05 153/68 08/12/20 04:00 98.4 83 17 158/61 (93) 94 HEENT: normal ENT inspection RHYTHM: NSR, Afib, VT LUNGS: rales bilaterally CARDIAC: normal rate, regular rhythm, normal S1 and S2, other - no rub ABDOMEN: normal bowel sounds, non tender, no organomegaly EXTREMITIES: normal range of motion, non-tender, +1 edema Laboratory Tests Test 08/12/20 06:03 08/12/20 09:50 08/12/20 12:32 08/12/20 17:03 POC Whole Blood Glucose Pending Pending Pending White Blood Count 7.1 K/UL (4.8-10.8) Red Blood Count 2.60 M/UL (4.20-5.40) L Hemoglobin 7.6 G/DL (12.0-16.0) L Hematocrit 23.9 % (37.0-47.0) L Mean Corpuscular Volume 92 FL (80-99) Mean Corpuscular Hemoglobin 29.5 PG (27.0-31.0) Mean Corpuscular Hemoglobin Concent 32.0 G/DL (32.0-36.0) Red Cell Distribution Width 19.7 % (11.6-14.8) H Platelet Count 123 K/UL (150-450) L Mean Platelet Volume 9.1 FL (6.5-10.1) Neutrophils (%) (Auto) % (45.0-75.0) Lymphocytes (%) (Auto) % (20.0-45.0) Monocytes (%) (Auto) % (1.0-10.0) Eosinophils (%) (Auto) % (0.0-3.0) Basophils (%) (Auto) % (0.0-2.0) Differential Total Cells Counted 100 Neutrophils % (Manual) 65 % (45-75) Lymphocytes % (Manual) 26 % (20-45) Monocytes % (Manual) 8 % (1-10) Eosinophils % (Manual) 1 % (0-3) Basophils % (Manual) 0 % (0-2) Band Neutrophils 0 % (0-8) Platelet Estimate Decreased L Platelet Morphology Normal Hypochromasia 1+ Anisocytosis 2+ Sodium Level 138 MMOL/L (136-145) Potassium Level 3.3 MMOL/L (3.5-5.1) L Chloride Level 102 MMOL/L (98-107) Carbon Dioxide Level 28 MMOL/L (21-32) Anion Gap 9 mmol/L (5-15) Blood Urea Nitrogen 57 mg/dL (7-18) H Creatinine 4.9 MG/DL (0.55-1.30) H Estimat Glomerular Filtration Rate 10.7 mL/min (>60) Glucose Level 127 MG/DL (74-106) H Calcium Level 7.4 MG/DL (8.5-10.1) L Phosphorus Level 2.2 MG/DL (2.5-4.9) L Total Bilirubin 0.2 MG/DL (0.2-1.0) Aspartate Amino Transf (AST/SGOT) 24 U/L (15-37) Alanine Aminotransferase (ALT/SGPT) 22 U/L (12-78) Alkaline Phosphatase 53 U/L (46-116) Total Protein 5.6 G/DL (6.4-8.2) L Albumin 2.1 G/DL (3.4-5.0) L Globulin 3.5 g/dL Albumin/Globulin Ratio 0.6 (1.0-2.7) L Assessment/Plan Assessment/Plan ESRD Ac/chr diastolic CHF Paroxysmal atrial and ventricular arrhythmias Labile Hypertension with hypotension this afternoon. Chronic myocardial ischemia and probable NSTEMI COVID 19 PNA Sinus bradycardia due to meds; asymptomatic Infected PermCath Sepsis Anemia HD/UF per renal New PermCath planned Titrating beta tc dosing as needed, with "hold parameter for low HR and BP. Continue metoprolol for anti-arrhythmic benefit. Optimizing BP regimen - meds being adjusted Anti-plt therapy Favor PRBC tx for hb below 8gm/dl Antivirals/steroids/anticoagulation per ID Will ultimately need myocardial perfusion scan - as outpatient, once Covid 19 resolved. Solo Smith MD Aug 13, 2020 01:36
[2020-08-13 04:21] VITALS: BP 131/52
[2020-08-13] MEDS: Nitroglycerin 2% oint pkt TOPIC SCH ×3 (04:58→17:25)
[2020-08-13 08:00] VITALS: BP 159/57
[2020-08-13] MEDS: Heparin 5000 units/ml inj SUBQ SCH ×2 (09:00→21:00)
[2020-08-13] MEDS: Nephrovite tab (Rena-Vite) ORAL SCH (09:16)
[2020-08-13] MEDS: Metoprolol Tartrate 50mg tab ORAL SCH ×2 (09:16→21:18)
[2020-08-13] MEDS: Losartan 50mg tab ORAL SCH (09:16)
[2020-08-13] MEDS: Aspirin Baby 81mg ORAL SCH (09:16)
[2020-08-13 12:00] VITALS: BP 143/60
--- NOTE | 2020-08-13 12:44 | Infectious Diseases Prog Note ---
Assessment/Plan Assessment/Plan A 1. COVID19 pneumonia. s/p ivermectin 2. Diabetes. 3. Hypertension. 4. Renal failure, ESRD 5. COPD. 6. UTI 7. Leukocytosis resolved P 1. continue isolation Subjective ROS Limited/Unobtainable: No Respiratory: Reports: no symptoms Cardiovascular: Reports: no symptoms Gastrointestinal/Abdominal: Reports: no symptoms Genitourinary: Reports: no symptoms Allergies: Coded Allergies: No Known Allergies (Unverified , 07/29/20) Objective Last 24 Hour Vital Signs Date Time Temp Pulse Resp B/P (MAP) Pulse Ox O2 Delivery O2 Flow Rate FiO2 08/13/20 12:22 143/60 08/13/20 12:00 98.2 62 18 143/60 (87) 95 08/13/20 09:16 68 159/57 08/13/20 09:16 68 159/57 08/13/20 09:16 159/57 08/13/20 09:00 Room Air 08/13/20 08:00 97.9 68 18 159/57 (91) 97 08/13/20 04:58 131/52 08/13/20 04:21 98.0 72 16 131/52 (78) 96 08/13/20 00:04 98.0 73 17 139/69 (92) 96 08/12/20 21:00 70 153/69 08/12/20 20:37 Room Air 08/12/20 20:00 98.3 70 16 153/69 (97) 95 08/12/20 18:00 66 135/66 08/12/20 17:38 98.2 08/12/20 17:07 135/66 08/12/20 16:06 98.2 66 18 135/66 (89) 97 Height (Feet): 5 Height (Inches): 2.00 Weight (Pounds): 189 General Appearance: no acute distress HEENT: mucous membranes moist Respiratory/Chest: lungs clear Cardiovascular: normal rate, other - RIJ HD line Abdomen: soft, non tender Extremities: no edema Neurologic/Psychiatric: alert, responsive Microbiology Date/Time Source Procedure Growth Status 08/10/20 16:20 Nasopharynx Coronavirus COVID-19 PCR ([facility]) - Final Complete Laboratory Tests Test 08/12/20 17:03 08/13/20 05:39 POC Whole Blood Glucose Pending Pending Current Medications Medications (Trade) Dose Ordered Sig/Andrew Route PRN Reason Start Time Stop Time Status Last Admin Dose Admin Acetaminophen (Tylenol) 650 mg Q4H PRN ORAL Mild Pain (Pain Scale 1-3) 07/29/20 22:45 08/28/20 22:44 08/12/20 17:08 Acetaminophen (Tylenol) 650 mg Q4H PRN ORAL Temp >100.5 07/29/20 22:45 08/28/20 22:44 08/04/20 00:00 Amlodipine Besylate (Norvasc) 5 mg BID ORAL 08/04/20 10:00 09/03/20 09:59 08/13/20 09:16 Aspirin (ASA) 81 mg DAILY ORAL 07/30/20 09:00 09/13/20 08:59 08/13/20 09:16 Atorvastatin Calcium (Lipitor) 80 mg BEDTIME ORAL 07/30/20 21:00 10/28/20 20:59 08/12/20 21:10 Budesonide/ Formoterol Fumarate (Symbicort 160/ 4.5) 2 puff BIDRT INH 07/30/20 10:00 10/28/20 09:59 08/13/20 09:18 Chlorhexidine Gluconate (Brittany-Hex 2%) 1 applic DAILY@1999 TOPIC 08/01/20 20:00 10/30/20 19:59 08/11/20 21:56 Diphenhydramine HCl (Benadryl) 25 mg Q6H PRN ORAL Itching 07/29/20 22:45 08/28/20 22:44 Epoetin Matthew (Epoetin Matthew(ESRD on dialysis)) 10,000 unit WED-WED-WED SUBQ 08/12/20 21:00 11/10/20 20:59 08/12/20 21:11 Escitalopram Oxalate (Lexapro) 10 mg DAILY ORAL 07/30/20 09:00 08/29/20 08:59 08/13/20 09:15 Famotidine (Pepcid) 20 mg DAILY ORAL 07/30/20 09:00 10/28/20 08:59 08/13/20 09:16 Guaifenesin (Robitussin) 200 mg Q4H PRN ORAL FOR COUGH 07/29/20 22:45 10/27/20 22:44 Heparin Sodium (Porcine) (Heparin 5000 units/ml) 5,000 units EVERY 12 HOURS SUBQ 07/30/20 09:00 09/13/20 08:59 08/10/20 23:00 Iron Sucrose 100 mg/Sodium Chloride 60 ml @ 240 mls/hr BEDTIME IVPB 08/10/20 21:00 08/14/20 21:14 08/12/20 21:10 Iron Sucrose 100 mg/Sodium Chloride 60 ml @ 240 mls/hr BEDTIME IVPB 08/12/20 21:00 08/16/20 21:14 08/12/20 21:09 Losartan Potassium (Cozaar) 100 mg DAILY ORAL 08/04/20 10:00 09/03/20 09:59 08/13/20 09:16 Metoprolol Tartrate (Lopressor) 50 mg Q12HR ORAL 08/06/20 09:00 11/04/20 08:59 08/13/20 09:16 Nitroglycerin (Nitro-Bid) 1 inch TID@0600,1200,1800 TOPIC 08/02/20 06:00 09/01/20 05:59 08/13/20 12:22 Nitroglycerin (Ntg) 0.4 mg Q5M PRN SL Prn Chest Pain 07/29/20 22:45 08/28/20 22:44 Ondansetron HCl (Zofran) 4 mg Q4H PRN IVP Nausea & Vomiting 07/29/20 22:45 08/28/20 22:44 08/12/20 17:06 Pantoprazole (Protonix) 40 mg DAILY ORAL 08/02/20 13:00 09/01/20 12:59 08/13/20 09:16 Polyethylene Glycol (Miralax) 17 gm DAILYPRN PRN ORAL Constipation 07/29/20 22:45 08/28/20 22:44 08/08/20 09:54 Sennosides (Senokot) 8.6 mg QHS ORAL 07/30/20 21:00 08/29/20 20:59 08/12/20 21:11 Sevelamer Carbonate (Renvela) 800 mg THREE TIMES A DAY ORAL 08/01/20 09:30 10/30/20 09:29 08/13/20 12:21 Sodium Chloride 1,000 ml @ 500 mls/hr Q2H PRN IVLG sbp<90 during hd 08/12/20 11:00 09/11/20 10:59 Trazodone HCl (Desyrel) 100 mg BEDTIME ORAL 07/30/20 21:00 08/29/20 20:59 08/12/20 21:10 Vitamin B Complex/ Vit C/Folic Acid (Nephrovite) 1 tab DAILY ORAL 07/30/20 09:00 08/29/20 08:59 08/13/20 09:16 Saad oTledo MD Aug 13, 2020 12:44
[2020-08-13 15:31] LABS: HEMATOCRIT 25.1 % (37.0-47.0); HEMOGLOBIN 7.8 G/DL (12.0-16.0); MEAN CORPUSCULAR VOLUME 95 FL (80-99); PLATELET COUNT 120 K/UL (150-450); RED BLOOD COUNT 2.65 M/UL (4.20-5.40); RED CELL DISTRIBUTION WIDTH 20.1 % (11.6-14.8); WHITE BLOOD COUNT 7.4 K/UL (4.8-10.8)
[2020-08-13 15:34] LABS: BASOPHILS % (AUTO) 1.9 % (0.0-2.0); EOSINOPHILS % (AUTO) 1.3 % (0.0-3.0); LYMPHOCYTES % (AUTO) 35.1 % (20.0-45.0); MONOCYTES % (AUTO) 10.5 % (1.0-10.0); NEUTROPHILS % (AUTO) 51.2 % (45.0-75.0)
[2020-08-13 15:53] LABS: ALBUMIN 2.2 G/DL (3.4-5.0); ALBUMIN/GLOBULIN RATIO 0.6 (1.0-2.7); BILIRUBIN,TOTAL 0.2 MG/DL (0.2-1.0); CALCIUM 7.9 MG/DL (8.5-10.1); CREATININE 3.7 MG/DL (0.55-1.30); POTASSIUM 3.8 MMOL/L (3.5-5.1)
[2020-08-13 16:00] VITALS: BP 159/67
--- NOTE | 2020-08-13 19:52 | Nephrology Progress Note ---
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 (4) Nephrotic syndrome (5) End-stage renal disease (6) CHF (congestive heart failure), NYHA class II (7) Metabolic acidosis (8) Suspected 2019 novel coronavirus infection (9) Pneumonia (10) Hypotension (11) Angina at rest Plan d/w consultants, dexamethasone, antibiotics, ivernectin given dialysis cath and start HD 07/31, on 07/31 episode of hypotension and afib, nonsustained vtach, bp better with fluids, bp meds restart 08/04, on cardizem , nsr with pvc's , HD 08/01+08/02 +08/03, try to control bp with volume on HD --stable on HD 08/05 +08/07 d/w dr ge+maddie, fever spike 12/5 pm cultured, vanco ordered, fever again 08/06 , check c diff--neg,recheck covid prior to placing permcath, hd 08/10+08/12 anemia add venofer, repeat covid test neg, d/w dr meeks who will try to get surgical time for permcath and transposition av fistula Subjective Constitutional: Reports: weakness Subjective no cough, no chest pain Objective Objective Last 24 Hour Vital Signs Date Time Temp Pulse Resp B/P (MAP) Pulse Ox O2 Delivery O2 Flow Rate FiO2 08/13/20 17:25 144/64 08/13/20 17:24 72 144/64 08/13/20 16:00 100.9 76 18 159/67 (97) 95 08/13/20 12:22 143/60 08/13/20 12:00 98.2 62 18 143/60 (87) 95 08/13/20 09:16 68 159/57 08/13/20 09:16 68 159/57 08/13/20 09:16 159/57 08/13/20 09:00 Room Air 08/13/20 08:00 97.9 68 18 159/57 (91) 97 08/13/20 04:58 131/52 08/13/20 04:21 98.0 72 16 131/52 (78) 96 08/13/20 00:04 98.0 73 17 139/69 (92) 96 08/12/20 21:00 70 153/69 08/12/20 20:37 Room Air 08/12/20 20:00 98.3 70 16 153/69 (97) 95 Intake and Output 08/12/20 08/13/20 19:00 07:00 Intake Total 960 ml 118 ml Output Total 4000 ml Balance 960 ml -3882 ml Intake Oral 360 ml Other 600 ml 118 ml Hemodialysis UF 4000 ml # Voids 1 Laboratory Tests 08/13/20 05:39: POC Whole Blood Glucose [Pending] 08/13/20 15:20: White Blood Count 7.4, Red Blood Count 2.65L, Hemoglobin 7.8L, Hematocrit 25.1L, Mean Corpuscular Volume 95, Mean Corpuscular Hemoglobin 29.3, Mean Corpuscular Hemoglobin Concent 31.0L, Red Cell Distribution Width 20.1H, Platelet Count 120L , Mean Platelet Volume 10.2H, Neutrophils (%) (Auto) 51.2, Lymphocytes (%) (Auto) 35.1, Monocytes (%) (Auto) 10.5H, Eosinophils (%) (Auto) 1.3, Basophils (%) (Auto) 1.9, Sodium Level 139, Potassium Level 3.8, Chloride Level 104, Carbon Dioxide Level 28, Anion Gap 7, Blood Urea Nitrogen 35H, Creatinine 3.7H, Estimat Glomerular Filtration Rate 14.8, Glucose Level 130H, Calcium Level 7.9L, Total Bilirubin 0.2, Aspartate Amino Transf (AST/SGOT) 19, Alanine Aminotr ansferase (ALT/SGPT) 20, Alkaline Phosphatase 51, Total Protein 6.0L, Albumin 2.2L, Globulin 3.8, Albumin/Globulin Ratio 0.6L Height (Feet): 5 Height (Inches): 2.00 Weight (Pounds): 189 General Appearance: no apparent distress EENT: normal ENT inspection Neck: normal alignment Cardiovascular: normal rate, regular rhythm Respiratory/Chest: lungs clear Extremities: no edema Neurologic: case checker II-XII grossly normal Christopher Andres MD Aug 13, 2020 19:52
[2020-08-13 21:00] VITALS: BP 158/71
[2020-08-13] MEDS: Dyna-Hex 2% Top Sol 2oz TOPIC SCH (21:10)
[2020-08-13] MEDS: Sennosides 8.6mg tab ORAL SCH (21:18)
[2020-08-13] MEDS: Iron Sucrose 100 MG in NS 55 ML IVPB SCH (21:18)
[2020-08-13] MEDS: TraZODone 100mg tab ORAL SCH (21:18)
[2020-08-13] MEDS: Atorvastatin 80mg tab ORAL SCH (21:18)
--- NOTE | 2020-08-14 00:23 | Cardiology Progress Note ---
Subjective DATE OF SERVICE: Aug 13, 2020 BP parameters improved No fever spikes. No CP No c/o SOB. Continues with HD/UF - for fluid management and BP control New PermCath to be placed with AV fistula transposition. Objective Last 24 Hour Vital Signs Date Time Temp Pulse Resp B/P (MAP) Pulse Ox O2 Delivery O2 Flow Rate FiO2 08/13/20 21:18 72 144/64 08/13/20 21:00 97.7 82 20 158/71 (100) 99 08/13/20 21:00 Room Air 08/13/20 17:25 144/64 08/13/20 17:24 72 144/64 08/13/20 16:00 100.9 76 18 159/67 (97) 95 08/13/20 12:22 143/60 08/13/20 12:00 98.2 62 18 143/60 (87) 95 08/13/20 09:16 68 159/57 08/13/20 09:16 68 159/57 08/13/20 09:16 159/57 08/13/20 09:00 Room Air 08/13/20 08:00 97.9 68 18 159/57 (91) 97 08/13/20 04:58 131/52 08/13/20 04:21 98.0 72 16 131/52 (78) 96 HEENT: normal ENT inspection RHYTHM: NSR, Afib, VT LUNGS: rales bilaterally, other - Dialysis cath right chest CARDIAC: normal rate, regular rhythm, normal S1 and S2, other - no rub ABDOMEN: normal bowel sounds, non tender, no organomegaly EXTREMITIES: normal range of motion, non-tender, +1 edema Laboratory Tests Test 08/13/20 05:39 08/13/20 15:20 08/13/20 21:50 POC Whole Blood Glucose Pending Pending White Blood Count 7.4 K/UL (4.8-10.8) Red Blood Count 2.65 M/UL (4.20-5.40) L Hemoglobin 7.8 G/DL (12.0-16.0) L Hematocrit 25.1 % (37.0-47.0) L Mean Corpuscular Volume 95 FL (80-99) Mean Corpuscular Hemoglobin 29.3 PG (27.0-31.0) Mean Corpuscular Hemoglobin Concent 31.0 G/DL (32.0-36.0) L Red Cell Distribution Width 20.1 % (11.6-14.8) H Platelet Count 120 K/UL (150-450) L Mean Platelet Volume 10.2 FL (6.5-10.1) H Neutrophils (%) (Auto) 51.2 % (45.0-75.0) Lymphocytes (%) (Auto) 35.1 % (20.0-45.0) Monocytes (%) (Auto) 10.5 % (1.0-10.0) H Eosinophils (%) (Auto) 1.3 % (0.0-3.0) Basophils (%) (Auto) 1.9 % (0.0-2.0) Sodium Level 139 MMOL/L (136-145) Potassium Level 3.8 MMOL/L (3.5-5.1) Chloride Level 104 MMOL/L (98-107) Carbon Dioxide Level 28 MMOL/L (21-32) Anion Gap 7 mmol/L (5-15) Blood Urea Nitrogen 35 mg/dL (7-18) H Creatinine 3.7 MG/DL (0.55-1.30) H Estimat Glomerular Filtration Rate 14.8 mL/min (>60) Glucose Level 130 MG/DL (74-106) H Calcium Level 7.9 MG/DL (8.5-10.1) L Total Bilirubin 0.2 MG/DL (0.2-1.0) Aspartate Amino Transf (AST/SGOT) 19 U/L (15-37) Alanine Aminotransferase (ALT/SGPT) 20 U/L (12-78) Alkaline Phosphatase 51 U/L (46-116) Total Protein 6.0 G/DL (6.4-8.2) L Albumin 2.2 G/DL (3.4-5.0) L Globulin 3.8 g/dL Albumin/Globulin Ratio 0.6 (1.0-2.7) L Assessment/Plan Assessment/Plan ESRD Ac/chr diastolic CHF Paroxysmal atrial and ventricular arrhythmias Labile Hypertension with hypotension this afternoon. Chronic myocardial ischemia and probable NSTEMI COVID 19 PNA Sinus bradycardia due to meds; asymptomatic Infected PermCath Sepsis Anemia HD/UF per renal New PermCath and AVfistula transposition to be scheduled Titrating beta tc dosing as needed, with "hold parameter for low HR and BP. Continue metoprolol for anti-arrhythmic benefit. Optimizing BP regimen - meds being adjusted Anti-plt therapy Favor PRBC tx for hb below 8gm/dl Antivirals/steroids/anticoagulation per ID Will ultimately need myocardial perfusion scan - as outpatient, once Covid 19 resolved. Solo Smith MD Aug 14, 2020 00:23
[2020-08-14 04:57] VITALS: BP 138/61
[2020-08-14] MEDS: Nitroglycerin 2% oint pkt TOPIC SCH ×3 (05:07→17:23)
[2020-08-14] MEDS ORDERED: Heparin Sod 1000 units/ml 10ml IV PRN (06:00)
[2020-08-14 08:00] VITALS: BP 121/72
[2020-08-14] MEDS: Losartan 50mg tab ORAL SCH (08:57)
[2020-08-14] MEDS: Metoprolol Tartrate 50mg tab ORAL SCH ×2 (08:58→21:00)
[2020-08-14] MEDS: Nephrovite tab (Rena-Vite) ORAL SCH (08:59)
[2020-08-14] MEDS: Aspirin Baby 81mg ORAL SCH (09:00)
[2020-08-14] MEDS: Heparin 5000 units/ml inj SUBQ SCH ×2 (09:00→21:00)
[2020-08-14 10:58] LABS: BASOPHILS % (AUTO) 2.6 % (0.0-2.0); EOSINOPHILS % (AUTO) 1.4 % (0.0-3.0); HEMATOCRIT 27.5 % (37.0-47.0); HEMOGLOBIN 8.5 G/DL (12.0-16.0); LYMPHOCYTES % (AUTO) 32.2 % (20.0-45.0); MEAN CORPUSCULAR VOLUME 95 FL (80-99); MONOCYTES % (AUTO) 6.8 % (1.0-10.0); NEUTROPHILS % (AUTO) 57.1 % (45.0-75.0); PLATELET COUNT 119 K/UL (150-450); RED BLOOD COUNT 2.89 M/UL (4.20-5.40); RED CELL DISTRIBUTION WIDTH 19.8 % (11.6-14.8); WHITE BLOOD COUNT 7.6 K/UL (4.8-10.8)
[2020-08-14 11:16] LABS: CALCIUM 8.1 MG/DL (8.5-10.1); CREATININE 4.3 MG/DL (0.55-1.30); POTASSIUM 3.6 MMOL/L (3.5-5.1)
--- NOTE | 2020-08-14 11:39 | Infectious Diseases Prog Note ---
"Assessment/Plan Assessment/Plan antibiotics : none A 1. 1. COVID-19 pneumonia. She is on room air with 95 % saturation. s/p ivermectin s/p decadron 2. Diabetes. 3. Hypertension. 4. Renal failure. 5. COPD. 6. proteus | e.coli UTI s/p rx 7. leucocytosis likely secondary to steroids P 1. continue off antibiotics 2. will follow up cultures 3. continue isolation Subjective Constitutional: Denies: fever, chills Respiratory: Denies: shortness of breath, dry cough Gastrointestinal/Abdominal: Denies: nausea, vomiting, diarrhea Musculoskeletal: Denies: pain Allergies: Coded Allergies: No Known Allergies (Unverified , 07/29/20) Objective Last 24 Hour Vital Signs Date Time Temp Pulse Resp B/P (MAP) Pulse Ox O2 Delivery O2 Flow Rate FiO2 08/14/20 11:12 153/63 08/14/20 09:00 Room Air 08/14/20 08:58 76 121/72 08/14/20 08:58 76 121/72 08/14/20 08:57 121/72 08/14/20 08:00 98.6 76 19 121/72 (88) 96 08/14/20 05:07 138/61 08/14/20 04:57 97.7 64 20 138/61 (86) 96 08/13/20 21:18 72 144/64 08/13/20 21:00 97.7 82 20 158/71 (100) 99 08/13/20 21:00 Room Air 08/13/20 17:25 144/64 08/13/20 17:24 72 144/64 08/13/20 16:00 100.9 76 18 159/67 (97) 95 08/13/20 12:22 143/60 08/13/20 12:00 98.2 62 18 143/60 (87) 95 Height (Feet): 5 Height (Inches): 2.00 Weight (Pounds): 189 Laboratory Tests Test 08/13/20 15:20 08/13/20 21:50 08/14/20 10:15 White Blood Count 7.4 K/UL (4.8-10.8) 7.6 K/UL (4.8-10.8) Red Blood Count 2.65 M/UL (4.20-5.40) L 2.89 M/UL (4.20-5.40) L Hemoglobin 7.8 G/DL (12.0-16.0) L 8.5 G/DL (12.0-16.0) L Hematocrit 25.1 % (37.0-47.0) L 27.5 % (37.0-47.0) L Mean Corpuscular Volume 95 FL (80-99) 95 FL (80-99) Mean Corpuscular Hemoglobin 29.3 PG (27.0-31.0) 29.6 PG (27.0-31.0) Mean Corpuscular Hemoglobin Concent 31.0 G/DL (32.0-36.0) L 31.1 G/DL (32.0-36.0) L Red Cell Distribution Width 20.1 % (11.6-14.8) H 19.8 % (11.6-14.8) H Platelet Count 120 K/UL (150-450) L 119 K/UL (150-450) L Mean Platelet Volume 10.2 FL (6.5-10.1) H 8.1 FL (6.5-10.1) Neutrophils (%) (Auto) 51.2 % (45.0-75.0) 57.1 % (45.0-75.0) Lymphocytes (%) (Auto) 35.1 % (20.0-45.0) 32.2 % (20.0-45.0) Monocytes (%) (Auto) 10.5 % (1.0-10.0) H 6.8 % (1.0-10.0) Eosinophils (%) (Auto) 1.3 % (0.0-3.0) 1.4 % (0.0-3.0) Basophils (%) (Auto) 1.9 % (0.0-2.0) 2.6 % (0.0-2.0) H Sodium Level 139 MMOL/L (136-145) 138 MMOL/L (136-145) Potassium Level 3.8 MMOL/L (3.5-5.1) 3.6 MMOL/L (3.5-5.1) Chloride Level 104 MMOL/L (98-107) 103 MMOL/L (98-107) Carbon Dioxide Level 28 MMOL/L (21-32) 28 MMOL/L (21-32) Anion Gap 7 mmol/L (5-15) 7 mmol/L (5-15) Blood Urea Nitrogen 35 mg/dL (7-18) H 41 mg/dL (7-18) H Creatinine 3.7 MG/DL (0.55-1.30) H 4.3 MG/DL (0.55-1.30) H Estimat Glomerular Filtration Rate 14.8 mL/min (>60) 12.4 mL/min (>60) Glucose Level 130 MG/DL (74-106) H 116 MG/DL (74-106) H Calcium Level 7.9 MG/DL (8.5-10.1) L 8.1 MG/DL (8.5-10.1) L Total Bilirubin 0.2 MG/DL (0.2-1.0) Aspartate Amino Transf (AST/SGOT) 19 U/L (15-37) Alanine Aminotransferase (ALT/SGPT) 20 U/L (12-78) Alkaline Phosphatase 51 U/L (46-116) Total Protein 6.0 G/DL (6.4-8.2) L Albumin 2.2 G/DL (3.4-5.0) L Globulin 3.8 g/dL Albumin/Globulin Ratio 0.6 (1.0-2.7) L POC Whole Blood Glucose Pending Current Medications Medications (Trade) Dose Ordered Sig/Andrew Route PRN Reason Start Time Stop Time Status Last Admin Dose Admin Acetaminophen (Tylenol) 650 mg Q4H PRN ORAL Mild Pain (Pain Scale 1-3) 07/29/20 22:45 08/28/20 22:44 08/12/20 17:08 Acetaminophen (Tylenol) 650 mg Q4H PRN ORAL Temp >100.5 07/29/20 22:45 08/28/20 22:44 08/04/20 00:00 Amlodipine Besylate (Norvasc) 5 mg BID ORAL 08/04/20 10:00 09/03/20 09:59 08/14/20 08:58 Aspirin (ASA) 81 mg DAILY ORAL 07/30/20 09:00 09/13/20 08:59 08/14/20 09:00 Atorvastatin Calcium (Lipitor) 80 mg BEDTIME ORAL 07/30/20 21:00 3/1/21 20:59 08/13/20 21:18 Budesonide/ Formoterol Fumarate (Symbicort 160/ 4.5) 2 puff BIDRT INH 07/30/20 10:00 10/28/20 09:59 08/13/20 21:20 Chlorhexidine Gluconate (Brittany-Hex 2%) 1 applic DAILY@2000 TOPIC 08/01/20 20:00 10/30/20 19:59 08/13/20 21:10 Diphenhydramine HCl (Benadryl) 25 mg Q6H PRN ORAL Itching 07/29/20 22:45 08/28/20 22:44 Epoetin Matthew (Epoetin Matthew(ESRD on dialysis)) 10,000 unit WED-WED-WED SUBQ 08/12/20 21:00 11/10/20 20:59 08/12/20 21:11 Escitalopram Oxalate (Lexapro) 10 mg DAILY ORAL 07/30/20 09:00 08/29/20 08:59 08/14/20 08:57 Famotidine (Pepcid) 20 mg DAILY ORAL 07/30/20 09:00 10/28/20 08:59 08/14/20 08:56 Guaifenesin (Robitussin) 200 mg Q4H PRN ORAL FOR COUGH 07/29/20 22:45 10/27/20 22:44 Heparin Sodium (Porcine) (Heparin 5000 units/ml) 5,000 units EVERY 12 HOURS SUBQ 07/30/20 09:00 09/13/20 08:59 08/10/20 23:00 Heparin Sodium (Porcine) (Heparin Sod 1000 units/ml 10ml) 500 unit ONCE PRN IV dialysis 08/14/20 06:00 08/14/20 23:59 Iron Sucrose 100 mg/Sodium Chloride 60 ml @ 240 mls/hr BEDTIME IVPB 08/12/20 21:00 08/16/20 21:14 08/13/20 21:18 Losartan Potassium (Cozaar) 100 mg DAILY ORAL 08/04/20 10:00 09/03/20 09:59 08/14/20 08:57 Metoprolol Tartrate (Lopressor) 50 mg Q12HR ORAL 08/06/20 09:00 11/04/20 08:59 08/14/20 08:58 Nitroglycerin (Nitro-Bid) 1 inch TID@0600,1200,1800 TOPIC 08/02/20 06:00 09/01/20 05:59 08/14/20 11:12 Nitroglycerin (Ntg) 0.4 mg Q5M PRN SL Prn Chest Pain 07/29/20 22:45 08/28/20 22:44 Ondansetron HCl (Zofran) 4 mg Q4H PRN IVP Nausea & Vomiting 07/29/20 22:45 08/28/20 22:44 08/12/20 17:06 Pantoprazole (Protonix) 40 mg DAILY ORAL 08/02/20 13:00 09/01/20 12:59 08/14/20 09:00 Polyethylene Glycol (Miralax) 17 gm DAILYPRN PRN ORAL Constipation 07/29/20 22:45 08/28/20 22:44 08/08/20 09:54 Sennosides (Senokot) 8.6 mg QHS ORAL 07/30/20 21:00 08/29/20 20:59 08/13/20 21:18 Sevelamer Carbonate (Renvela) 800 mg THREE TIMES A DAY ORAL 08/01/20 09:30 10/30/20 09:29 08/14/20 08:56 Sodium Chloride 1,000 ml @ 500 mls/hr Q2H PRN IVLG sbp<90 during hd 08/14/20 06:00 08/14/20 23:59 Trazodone HCl (Desyrel) 100 mg BEDTIME ORAL 07/30/20 21:00 08/29/20 20:59 08/13/20 21:18 Vitamin B Complex/ Vit C/Folic Acid (Nephrovite) 1 tab DAILY ORAL 07/30/20 09:00 08/29/20 08:59 08/14/20 08:59 Joyce Laurent MD Aug 14, 2020 11:39"
[2020-08-14 12:00] VITALS: BP 104/54
--- NOTE | 2020-08-14 12:08 | Anethesia Preoperative Eval ---
Anesthesia Pre-op PMH/ROS General Date of Evaluation: Aug 14, 2020 Time of Evaluation: 12:07 Anesthesiologist: everton ASA Score: ASA 4 Mallampati Score Class I : Soft palate, uvula, fauces, pillars visible Class II: Soft palate, uvula, fauces visible Class III: Soft palate, base of uvula visible Class IV: Only hard plate visible Mallampati Classification: Class II Surgeon: Michele Diagnosis: ESRD Surgical Procedure: transposition av fistula Family History: no anesthesia problems Allergies: Coded Allergies: No Known Allergies (Unverified , 07/29/20) Medications: see eMAR Patient NPO?: Yes NPO Date: Aug 14, 2020 NPO Time: 00:01 Past Medical History Cardiovascular: Reports: HTN, CAD; Denies: OK, valve dz, arrhythmia, other Pulmonary: Reports: COPD, other - Hx of Positive covid; Denies: asthma, LUTHER Gastrointestinal/Genitourinary: Reports: CRI, ESRD; Denies: GERD, other Neurologic/Psychiatric: Denies: dementia, CVA, depression/anxiety, TIA, other Endocrine: Denies: DM, hypothyroidism, steroids, other HEENT: Denies: cataract (L), cataract (R), glaucoma, [place] (L), [place] (R), other Hematology/Immune: Reports: anemia; Denies: DVT, bleeding disorder, other Musculoskeletal/Integumentary: Denies: OA, RA, DJD, DDD, edema, other Other: other - SEPSIS PMH Narrative: (1) COPD (chronic obstructive pulmonary disease) (2) Malignant hypertension (arteriolar nephrosclerosis) (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 Exam Physician Exam Last Vital Signs Date Time Temp Pulse Resp B/P (MAP) Pulse Ox O2 Delivery O2 Flow Rate FiO2 08/14/20 11:12 153/63 08/14/20 09:00 Room Air 08/14/20 08:58 76 08/14/20 08:00 98.6 19 96 Constitutional: NAD Neurologic: CN 2-12 intact Cardiovascular: RRR Respiratory: CTA Gastrointestinal: S/NT/ND Airway Exam Mallampati Classification 2 Mallampati Score: Class II MO: limited ROM: limited Dentures: no upper, no lower Anesthesia Pre-op A/P Labs Hematology Test 08/13/20 15:20 08/14/20 10:15 White Blood Count 7.4 K/UL (4.8-10.8) 7.6 K/UL (4.8-10.8) Red Blood Count 2.65 M/UL (4.20-5.40) L 2.89 M/UL (4.20-5.40) L Hemoglobin 7.8 G/DL (12.0-16.0) L 8.5 G/DL (12.0-16.0) L Hematocrit 25.1 % (37.0-47.0) L 27.5 % (37.0-47.0) L Mean Corpuscular Volume 95 FL (80-99) 95 FL (80-99) Mean Corpuscular Hemoglobin 29.3 PG (27.0-31.0) 29.6 PG (27.0-31.0) Mean Corpuscular Hemoglobin Concent 31.0 G/DL (32.0-36.0) L 31.1 G/DL (32.0-36.0) L Red Cell Distribution Width 20.1 % (11.6-14.8) H 19.8 % (11.6-14.8) H Platelet Count 120 K/UL (150-450) L 119 K/UL (150-450) L Mean Platelet Volume 10.2 FL (6.5-10.1) H 8.1 FL (6.5-10.1) Neutrophils (%) (Auto) 51.2 % (45.0-75.0) 57.1 % (45.0-75.0) Lymphocytes (%) (Auto) 35.1 % (20.0-45.0) 32.2 % (20.0-45.0) Monocytes (%) (Auto) 10.5 % (1.0-10.0) H 6.8 % (1.0-10.0) Eosinophils (%) (Auto) 1.3 % (0.0-3.0) 1.4 % (0.0-3.0) Basophils (%) (Auto) 1.9 % (0.0-2.0) 2.6 % (0.0-2.0) H Chemistry Test 08/13/20 15:20 08/13/20 21:50 08/14/20 10:15 Sodium Level 139 MMOL/L (136-145) 138 MMOL/L (136-145) Potassium Level 3.8 MMOL/L (3.5-5.1) 3.6 MMOL/L (3.5-5.1) Chloride Level 104 MMOL/L (98-107) 103 MMOL/L (98-107) Carbon Dioxide Level 28 MMOL/L (21-32) 28 MMOL/L (21-32) Anion Gap 7 mmol/L (5-15) 7 mmol/L (5-15) Blood Urea Nitrogen 35 mg/dL (7-18) H 41 mg/dL (7-18) H Creatinine 3.7 MG/DL (0.55-1.30) H 4.3 MG/DL (0.55-1.30) H Estimat Glomerular Filtration Rate 14.8 mL/min (>60) 12.4 mL/min (>60) Glucose Level 130 MG/DL (74-106) H 116 MG/DL (74-106) H Calcium Level 7.9 MG/DL (8.5-10.1) L 8.1 MG/DL (8.5-10.1) L Total Bilirubin 0.2 MG/DL (0.2-1.0) Aspartate Amino Transf (AST/SGOT) 19 U/L (15-37) Alanine Aminotransferase (ALT/SGPT) 20 U/L (12-78) Alkaline Phosphatase 51 U/L (46-116) Total Protein 6.0 G/DL (6.4-8.2) L Albumin 2.2 G/DL (3.4-5.0) L Globulin 3.8 g/dL Albumin/Globulin Ratio 0.6 (1.0-2.7) L POC Whole Blood Glucose Pending Studies Pre-op Studies: EKG - SR Risk Assessment & Plan Assessment: Covid neg 08/10/20; Reassess patient in am Plan: General Status Change Before Surgery: Radha Cee CRNA Aug 14, 2020 12:08
[2020-08-14 16:00] VITALS: BP 145/68
--- NOTE | 2020-08-14 19:39 | Nephrology Progress Note ---
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 (4) Nephrotic syndrome (5) End-stage renal disease (6) CHF (congestive heart failure), NYHA class II (7) Metabolic acidosis (8) Suspected 2019 novel coronavirus infection (9) Pneumonia (10) Hypotension (11) Angina at rest Plan d/w consultants, dexamethasone, antibiotics, ivernectin given dialysis cath and start HD 07/31, on 07/31 episode of hypotension and afib, nonsustained vtach, bp better with fluids, bp meds restart 08/04, on cardizem , nsr with pvc's , HD 08/01+08/02 +08/03, try to control bp with volume on HD --stable on HD 08/05 +08/07 d/w dr ge+maddie, fever spike 125 pm cultured, vanco ordered, fever again 08/06 , check c diff--neg,recheck covid prior to placing permcath, hd 08/10+08/12 anemia add venofer, repeat covid test neg, d/w dr meeks who will try to get surgical time for permcath and transposition av fistula, Hd via karlee 08/14 Subjective Constitutional: Reports: weakness HEENT: Reports: no symptoms Genitourinary: Reports: incontinence Neurologic/Psychiatric: Reports: no symptoms Subjective no cough, no chest pain Objective Objective Last 24 Hour Vital Signs Date Time Temp Pulse Resp B/P (MAP) Pulse Ox O2 Delivery O2 Flow Rate FiO2 08/14/20 17:23 76 145/68 08/14/20 17:23 145/68 08/14/20 16:00 97.1 76 19 145/68 (93) 95 08/14/20 12:00 97.1 75 20 104/54 (71) 97 08/14/20 11:12 153/63 08/14/20 09:00 Room Air 08/14/20 08:58 76 121/72 08/14/20 08:58 76 121/72 08/14/20 08:57 121/72 08/14/20 08:00 98.6 76 19 121/72 (88) 96 08/14/20 05:07 138/61 08/14/20 04:57 97.7 64 20 138/61 (86) 96 08/13/20 21:18 72 144/64 08/13/20 21:00 97.7 82 20 158/71 (100) 99 08/13/20 21:00 Room Air Intake and Output 08/13/20 08/14/20 19:00 07:00 Intake Total 360 ml Balance 360 ml Intake Oral 300 ml IV Total 60 ml # Voids 1 # Bowel Movements 1 Laboratory Tests 08/13/20 21:50: POC Whole Blood Glucose [Pending] 08/14/20 10:15: White Blood Count 7.6, Red Blood Count 2.89L, Hemoglobin 8.5L, Hematocrit 27.5L, Mean Corpuscular Volume 95, Mean Corpuscular Hemoglobin 29.6, Mean Corpuscular Hemoglobin Concent 31.1L, Red Cell Distribution Width 19.8H, Platelet Count 119L , Mean Platelet Volume 8.1, Neutrophils (%) (Auto) 57.1, Lymphocytes (%) (Auto) 32.2, Monocytes (%) (Auto) 6.8, Eosinophils (%) (Auto) 1.4, Basophils (%) (Auto) 2.6H, Sodium Level 138, Potassium Level 3.6, Chloride Level 103, Carbon Dioxide Level 28, Anion Gap 7, Blood Urea Nitrogen 41H, Creatinine 4.3H, Estimat Glomerular Filtration Rate 12.4, Glucose Level 116H, Calcium Level 8.1L 08/14/20 16:32: POC Whole Blood Glucose 143H Height (Feet): 5 Height (Inches): 2.00 Weight (Pounds): 189 General Appearance: no apparent distress, alert EENT: normal ENT inspection Neck: normal alignment Cardiovascular: regular rhythm Respiratory/Chest: lungs clear Abdomen: soft, no organomegaly Neurologic: public health representative II-XII grossly normal Christopher Andres MD Aug 14, 2020 19:39
[2020-08-14 20:00] VITALS: BP 135/63
[2020-08-14] MEDS: Iron Sucrose 100 MG in NS 55 ML IVPB SCH (21:49)
[2020-08-14] MEDS: Dyna-Hex 2% Top Sol 2oz TOPIC SCH (21:49)
[2020-08-14] MEDS: Epoetin Alfa-EPBX(ESRD on dialysis)10,000 unit/ml vial SUBQ SCH (21:50)
[2020-08-14] MEDS: Sennosides 8.6mg tab ORAL SCH (21:50)
[2020-08-14] MEDS: TraZODone 100mg tab ORAL SCH (21:50)
[2020-08-14] MEDS: Atorvastatin 80mg tab ORAL SCH (21:50)
--- NOTE | 2020-08-14 22:07 | Cardiology Progress Note ---
Subjective DATE OF SERVICE: Aug 14, 2020 BP parameters stable. Repeat Covid 19 PCR negative. No CP No c/o SOB. Continues with HD/UF - for fluid management and BP control New PermCath to be placed with AV fistula transposition. Objective Last 24 Hour Vital Signs Date Time Temp Pulse Resp B/P (MAP) Pulse Ox O2 Delivery O2 Flow Rate FiO2 08/14/20 17:23 76 145/68 08/14/20 17:23 145/68 08/14/20 16:00 97.1 76 19 145/68 (93) 95 08/14/20 12:00 97.1 75 20 104/54 (71) 97 08/14/20 11:12 153/63 08/14/20 09:00 Room Air 08/14/20 08:58 76 121/72 08/14/20 08:58 76 121/72 08/14/20 08:57 121/72 08/14/20 08:00 98.6 76 19 121/72 (88) 96 08/14/20 05:07 138/61 08/14/20 04:57 97.7 64 20 138/61 (86) 96 HEENT: normal ENT inspection RHYTHM: NSR, Afib, VT LUNGS: rales bilaterally, other - Dialysis cath right chest CARDIAC: normal rate, regular rhythm, normal S1 and S2, other - no rub ABDOMEN: normal bowel sounds, non tender, no organomegaly EXTREMITIES: normal range of motion, non-tender, +1 edema Laboratory Tests Test 08/14/20 10:15 08/14/20 16:32 White Blood Count 7.6 K/UL (4.8-10.8) Red Blood Count 2.89 M/UL (4.20-5.40) L Hemoglobin 8.5 G/DL (12.0-16.0) L Hematocrit 27.5 % (37.0-47.0) L Mean Corpuscular Volume 95 FL (80-99) Mean Corpuscular Hemoglobin 29.6 PG (27.0-31.0) Mean Corpuscular Hemoglobin Concent 31.1 G/DL (32.0-36.0) L Red Cell Distribution Width 19.8 % (11.6-14.8) H Platelet Count 119 K/UL (150-450) L Mean Platelet Volume 8.1 FL (6.5-10.1) Neutrophils (%) (Auto) 57.1 % (45.0-75.0) Lymphocytes (%) (Auto) 32.2 % (20.0-45.0) Monocytes (%) (Auto) 6.8 % (1.0-10.0) Eosinophils (%) (Auto) 1.4 % (0.0-3.0) Basophils (%) (Auto) 2.6 % (0.0-2.0) H Sodium Level 138 MMOL/L (136-145) Potassium Level 3.6 MMOL/L (3.5-5.1) Chloride Level 103 MMOL/L (98-107) Carbon Dioxide Level 28 MMOL/L (21-32) Anion Gap 7 mmol/L (5-15) Blood Urea Nitrogen 41 mg/dL (7-18) H Creatinine 4.3 MG/DL (0.55-1.30) H Estimat Glomerular Filtration Rate 12.4 mL/min (>60) Glucose Level 116 MG/DL (74-106) H Calcium Level 8.1 MG/DL (8.5-10.1) L POC Whole Blood Glucose 143 MG/DL (74-106) H Assessment/Plan Assessment/Plan ESRD Ac/chr diastolic CHF Paroxysmal atrial and ventricular arrhythmias Labile Hypertension with hypotension this afternoon. Chronic myocardial ischemia and probable NSTEMI COVID 19 PNA Sinus bradycardia due to meds. Infected PermCath Sepsis HD/UF per renal New PermCath placed with dialysis 08/09/20 Titrating beta tc dosing as needed, with "hold parameter for low HR and BP. Continue metoprolol for anti-arrhythmic benefit. Maintain current antiHTN regimen, with titration as needed. Anti-plt therapy Antivirals/steroids/anticoagulation per ID Will ultimately need myocardial perfusion scan - as outpatient, once Covid 19 resolved. Solo Smith MD Aug 14, 2020 22:07
[2020-08-15] VITALS (10 sets, daily range): BP systolic 138–189; BP diastolic 71–80
[2020-08-15] MEDS: Nitroglycerin 2% oint pkt TOPIC SCH ×3 (05:49→18:24)
[2020-08-15] MEDS: Losartan 50mg tab ORAL SCH (09:00)
[2020-08-15] MEDS: Aspirin Baby 81mg ORAL SCH (09:00)
[2020-08-15] MEDS: Heparin 5000 units/ml inj SUBQ SCH ×2 (09:00→21:00)
[2020-08-15] MEDS: Nephrovite tab (Rena-Vite) ORAL SCH (10:03)
[2020-08-15] MEDS: Metoprolol Tartrate 50mg tab ORAL SCH (10:07)
[2020-08-15 11:03] LABS: HEMATOCRIT 24.6 % (37.0-47.0); HEMOGLOBIN 7.6 G/DL (12.0-16.0); MEAN CORPUSCULAR VOLUME 96 FL (80-99); PLATELET COUNT 122 K/UL (150-450); RED BLOOD COUNT 2.57 M/UL (4.20-5.40); RED CELL DISTRIBUTION WIDTH 20.1 % (11.6-14.8); WHITE BLOOD COUNT 9.2 K/UL (4.8-10.8)
[2020-08-15 11:24] LABS: CALCIUM 8.2 MG/DL (8.5-10.1); CREATININE 3.6 MG/DL (0.55-1.30); POTASSIUM 3.8 MMOL/L (3.5-5.1)
[2020-08-15 11:30] LABS: INR 0.9 (0.9-1.1)
[2020-08-15] MEDS ORDERED: Heparin 1000 units/ml 1ml Vial ONE (11:46)
[2020-08-15] MEDS ORDERED: Heparin 5000 units/ml inj ONE (11:46)
[2020-08-15] MEDS ORDERED: Iothalamate Meglumine 60% 50ML INJ ONE (11:47)
[2020-08-15] MEDS ORDERED: Bacitracin 50000 Units Vial ONE (11:47)
[2020-08-15] MEDS ORDERED: Bupivacaine 0.5% Inj 30 ml vial INJ ONE (11:47)
[2020-08-15] MEDS ORDERED: Lidocaine 1% Plain 30 ml INJ ONE ×2 (11:47→12:30)
[2020-08-15] MEDS ORDERED: Midazolam 2mg/2ml Inj ONE (11:51)
[2020-08-15] MEDS ORDERED: Lidocaine 1% MPF 10mg/ml 5ml ONE (11:51)
[2020-08-15] MEDS ORDERED: fentaNYL 100 mcg/2 mL IV ONE (11:51)
--- NOTE | 2020-08-15 11:54 | Pre-Procedure Note/Attestation ---
Pre-Procedure Note/Attestation Complete Prior to Procedure Planned Procedure: left Procedure Narrative: AVF exploration, possible revision or transposition and dialysis catheter replacement Indications for Procedure Pre-Operative Diagnosis: ESRD; inaccessible AVF Attestation I attest that I discussed the nature of the procedure; its benefits; risks and complications; and alternatives (and the risks and benefits of such alternatives), prior to the procedure, with the patient (or the patient's legal leasing representative). I attest that, if there was a reasonable possibility of needing a blood transfusion, the patient (or the patient's legal leasing representative) was given the [facility] standardized written summary, pursuant to the Toney Lauren Blood Safety Act ([place] Health and Safety Code # 1645, as amended). I attest that I re-evaluated the patient just prior to the surgery and that there has been no change in the patient's H&P, except as documented below: Doron Bautista MD Aug 15, 2020 11:53
[2020-08-15] MEDS ORDERED: DiphenhydrAMINE 50mg/ml Inj ONE (12:00)
[2020-08-15] MEDS ORDERED: NS Irrig 1000ml ONE (12:00)
[2020-08-15] MEDS ORDERED: Sterile Water Irrig 1000ml IRRIG ONE (12:00)
[2020-08-15] MEDS ORDERED: NS 500ML ONE (12:00)
[2020-08-15] MEDS ORDERED: LR 1000ml ONE (12:00)
[2020-08-15] MEDS ORDERED: Thrombin 5000 units TOPIC ONE (12:14)
[2020-08-15] MEDS ORDERED: Bacitracin Oint 15gm Tube TOPIC ONE (14:53)
--- NOTE | 2020-08-15 15:50 | Immediate Post-Op Evaluation ---
Immediate Post-Op Evalulation Immediate Post-Op Evalulation Procedure: Revision left av fistula, and permacath placement Date of Evaluation: Aug 15, 2020 Time of Evaluation: 15:51 IV Fluids: 1551 Blood Products: 0 Estimated Blood Loss: min Urinary Output: 0 Blood Pressure Systolic: 161 Blood Pressure Diastolic: 74 Pulse Rate: 60 Respiratory Rate: 18 O2 Sat by Pulse Oximetry: 100 Temperature (Fahrenheit): 97.2 Pain Score (1-10): 0 Nausea: No Vomiting: No Complications 0 Patient Status: awake, reacts, patent, none Hydration Status: adequate Drug: Ancef 1g Given Within 1 Hr of Incision: Yes Latonya Stroud MD Aug 15, 2020 15:50
--- NOTE | 2020-08-15 15:51 | Brief Operative Note ---
Immediate Post Operative Note Operative Note Pre-op Diagnosis: ESRD; inaccessible AVF Post-op Diagnosis: same as pre-op Findings: consistent w/pre-op dx studies Surgeon: Karen Bautista Anesthesiologist: Flavia Stroud Anesthesia: general Specimen: none Complications: none Condition: stable Fluids: see anesth. record Estimated Blood Loss: minimal Drains: none Implant(s) used?: Yes - Doron Ge MD Aug 15, 2020 15:51
--- NOTE | 2020-08-15 16:27 | Nephrology Progress Note ---
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 (4) Nephrotic syndrome (5) End-stage renal disease (6) CHF (congestive heart failure), NYHA class II (7) Metabolic acidosis (8) Suspected 2019 novel coronavirus infection (9) Pneumonia (10) Hypotension (11) Angina at rest (12) Anemia in chronic kidney disease (13) UTI (urinary tract infection) Plan d/w consultants, dexamethasone, antibiotics, ivernectin given dialysis cath and start HD 07/31, on 07/31 episode of hypotension and afib, nonsustained vtach, bp better with fluids, bp meds restart 08/04, on cardizem , nsr with pvc's , HD 08/01+08/02 +08/03, try to control bp with volume on HD --stable on HD 08/05 +08/07 d/w dr ge+maddie, fever spike 08/03 pm cultured, vanco ordered, fever again 08/06 , check c diff--neg,recheck covid prior to placing permcath, hd 08/10+08/12 anemia add venofer, repeat covid test neg, d/w dr meeks who to get surgical time for permcath and transposition av fistula, Hd via karlee 08/14, low Hb to repeat may need transfusion Subjective Constitutional: Reports: weakness HEENT: Reports: no symptoms Genitourinary: Reports: incontinence Neurologic/Psychiatric: Reports: no symptoms Subjective no cough, no chest pain Objective Objective Last 24 Hour Vital Signs Date Time Temp Pulse Resp B/P (MAP) Pulse Ox O2 Delivery O2 Flow Rate FiO2 08/15/20 16:15 61 16 182/76 100 Simple Mask 6 08/15/20 16:10 60 15 185/74 100 Simple Mask 6 08/15/20 16:00 61 14 181/73 100 Simple Mask 6 08/15/20 15:50 60 18 100 08/15/20 15:46 97.2 60 18 161/74 100 Simple Mask 6 08/15/20 10:07 73 148/77 08/15/20 09:00 Room Air 08/15/20 09:00 73 148/77 08/15/20 09:00 148/77 08/15/20 08:00 98.2 73 20 148/77 (100) 93 08/15/20 04:00 97.6 69 19 138/72 (94) 96 08/15/20 00:00 98.0 66 20 150/71 (97) 96 08/14/20 21:00 Room Air 08/14/20 20:00 98.2 64 20 135/63 (87) 95 08/14/20 17:23 76 145/68 08/14/20 17:23 145/68 Intake and Output 08/14/20 08/15/20 19:00 07:00 Intake Total 990 ml 200 ml Balance 990 ml 200 ml Intake Oral 990 ml 200 ml # Voids 1 2 Laboratory Tests 08/14/20 16:32: POC Whole Blood Glucose 143H 08/15/20 10:50: White Blood Count 9.2, Red Blood Count 2.57L, Hemoglobin 7.6L, Hematocrit 24.6L, Mean Corpuscular Volume 96, Mean Corpuscular Hemoglobin 29.8, Mean Corpuscular Hemoglobin Concent 31.0L, Red Cell Distribution Width 20.1H, Platelet Count 122L , Mean Platelet Volume 9.5, Neutrophils (%) (Auto) , Lymphocytes (%) (Auto) , Monocytes (%) (Auto) , Eosinophils (%) (Auto) , Basophils (%) (Auto) , Differential Total Cells Counted 100, Neutrophils % (Manual) 54, Lymphocytes % (Manual) 37, Monocytes % (Manual) 3, Eosinophils % (Manual) 2, Basophils % (Manual) 1, Band Neutrophils 3, Platelet Estimate DecreasedL, Platelet Morphology Normal, Hypochromasia 2+, Anisocytosis 2+, Prothrombin Time 10.5, Prothromb Time International Ratio 0.9, Activated Partial Thromboplast Time 26, Sodium Level 140, Potassium Level 3.8, Chloride Level 104, Carbon Dioxide Level 31, Anion Gap 5, Blood Urea Nitrogen 28H, Creatinine 3.6H, Estimat Glomerular Filtration Rate 15.2, Glucose Level 92, Calcium Level 8.2L Height (Feet): 5 Height (Inches): 2.00 Weight (Pounds): 189 General Appearance: no apparent distress, alert EENT: normal ENT inspection Neck: non-tender Cardiovascular: normal rate, regular rhythm Respiratory/Chest: lungs clear Extremities: no edema Neurologic: bumper and painter II-XII grossly normal Christopher Andres MD Aug 15, 2020 16:27
--- NOTE | 2020-08-15 16:41 | Diagnostic Imaging Report ---
INDICATION: Pain, intraoperative TECHNIQUE: Intraoperative imaging Fluoroscopy time: 64.6 seconds Total dose: 0.38401 mGym2 Total number of images: One COMPARISON: None FINDINGS: Intraoperative images document placement of a right jugular tunneled dialysis catheter IMPRESSION: Intraoperative imaging, as described
--- NOTE | 2020-08-15 17:12 | Diagnostic Imaging Report ---
Indication: Post dialysis catheter placement Technique: One view of the chest Comparison: 08/02/2020 Findings: And exchanged for previously demonstrated temporary dialysis catheter for tunneled dialysis catheter, tip projecting at the level of the high right atrium. No pneumothorax. Bilateral perihilar interstitial air space infiltrates versus edema appear similar to the prior study. There is probably some pleural fluid on the left. Impression: Status post tunneled dialysis catheter placement. No radiographically evident complication Bilateral perihilar edema versus infiltrates
--- NOTE | 2020-08-15 19:15 | Operative Note - Dictated ---
DATE OF OPERATION: 08/15/2020 PREOPERATIVE DIAGNOSES: 1. Inaccessible dialysis arteriovenous fistula in the left upper extremity. 2. End-stage renal disease. 3. COVID-19 status post inpatient treatment. POSTOPERATIVE DIAGNOSES: 1. Inaccessible dialysis arteriovenous fistula in the left upper extremity. 2. End-stage renal disease. 3. COVID-19 status post inpatient treatment as well as findings below. PROCEDURES: 1. Left basilic vein transposition dialysis arteriovenous fistula creation in the left upper arm. 2. Exploration and ligation of the existing AV fistula in the left arm. 3. Placement of a tunneled dialysis catheter via right internal jugular vein. 4. Removal of the old dialysis catheter. 5. Intraoperative ultrasound. 6. Intraoperative fluoroscopy. 7. Supervision and interpretation of ultrasound and fluoroscopy. SURGEON: Doron Reyes MD ANESTHESIA: General. ANESTHESIOLOGIST: Latonya Stroud MD INDICATION: The patient was admitted in renal failure and also noted to be positive for COVID-19 and was started on dialysis through a temporary catheter while being treated for the COVID infection. Once cleared for placement of a long-term dialysis access, a duplex scan of the existing AV fistula showed that it is patent, but it is too deep to be accessed for dialysis and therefore, exploration and further management was recommended. INTRAOPERATIVE FINDINGS: The AV fistula was patent, but the basilic vein outflow needed to be transposed to make it accessible, which was done as described below and the AV fistula has a good thrill at the end of the procedure and ipsilateral radial pulse was also noted at the left wrist level. The tunneled catheter was placed as described below with good venous blood return noted from both ports and the tip placed at the atriocaval junction under fluoroscopy. Patient remained hemodynamically stable throughout the procedure and chest x-ray was ordered postoperatively to rule out hemopneumothorax. PROCEDURE IN DETAIL: With the patient in supine position and after the left upper extremity and later the neck and upper chest areas were prepped and draped in usual sterile fashion, the skin was infiltrated with local anesthetic to supplement general anesthesia. The incision was made just proximal to the antecubital crease over the course of the basilic vein, which was exposed and noted to be adequate for transposition. The existing AV fistula was therefore ligated on the venous side near the anastomosis with the brachial artery and divided and the stump of the vein oversewn with 2 layers of 6-0 Prolene and also ligated with a silk tie. After the entire basilic vein in the upper arm was mobilized once its tributaries were ligated with silk ties and hemoclips were necessary and divided, it was flushed with heparinized saline and noted to be patent and adequate for transposition. A curvilinear subcutaneous tunnel was therefore created just lateral to the incision and maintained with a Lepe catheter. The end of the mobilized vein was spatulated and brought through the subcutaneous tunnel out in the distal incision where the brachial artery was exposed and encircled vessels proximally and distally location more proximal to the previous AV fistula anastomotic site. It was controlled with the vessel loops and a longitudinal arteriotomy was made through which the vessel was flushed with heparinized saline proximally and distally and the end-to-side anastomosis into the vein was then carried out with a continuous suture of 6-0 Prolene. After removal of the vessel loops, excellent flow into the vein was noted and a palpable thrill and ipsilateral radial pulse were noted and Doppler signals were also adequate including the palmar arch. After hemostasis was ensured, the wound was irrigated with antibiotic solution and closed with interrupted sutures of 2-0 and 3-0 Vicryl for the deep layers followed by 4-0 Monocryl in a subcuticular continuous fashion for skin closure. Antibiotic ointment and dressings were applied. Attention was then turned to the placement of the tunneled catheter. Patient was placed in a Trendelenburg position and after infiltration of skin with local anesthetic, the right internal jugular vein was entered at a new location from the existing catheter under ultrasound and fluoroscopic guidance and using a micropuncture needle and single wall puncture modified Seldinger technique, the wire was advanced and followed into the vena cava under fluoroscopy. Needle was removed and the existing catheter also removed after sutures of the skin were cut off and the catheter pulled out in its entirety without difficulty. Manual compression was maintained for hemostasis. After infiltration of the skin with more local anesthetic, two stab incisions were made, 1 at the puncture site in the neck and the other in the right anterolateral chest and the 2 were connected through a subcutaneous tunnel through which the catheter was brought out of the upper incision where after serial dilation of the tract, the peel-away introducer sheath and dilator placed coaxially over the wire and into the vena cava under fluoroscopy and the wire and the dilator removed. The catheter was placed through the sheath and the sheath peeled away and removed leaving the catheter in good position and no kinks noted along its length. Good venous blood return was obtained from both ports of the catheter, which were then flushed with heparinized saline and capped. The catheter was secured to the skin with 3-0 nylon sutures and after neck incision was irrigated with antibiotic solution and hemostasis was assured, it was closed with a single suture of 4-0 Vicryl in a vertical mattress subcuticular fashion. Skin was cleaned and dried and Betadine applied to both incisions and sterile dressings were placed. The patient tolerated the procedure well and was transferred to the PACU after she was brought out of anesthesia and extubated in stable condition. At the conclusion of procedure, sponge, needle, and instrument counts were correct. ESTIMATED BLOOD LOSS: Minimal. COMPLICATIONS: None. DRAINS: None. TOTAL FLUOROSCOPY TIME: 30 seconds. The procedure was performed using maximal sterile barrier technique. Doron Reyes M.D. DR: JOSE JOB#: [id number] CC: Christopher Andres M.D.; Fax#: [phone] DORON REYES M.D. ; FAX#: [phone]
[2020-08-15 20:59] LABS: BASOPHILS % (AUTO) 1.5 % (0.0-2.0); EOSINOPHILS % (AUTO) 1.3 % (0.0-3.0); HEMATOCRIT 26.8 % (37.0-47.0); HEMOGLOBIN 8.5 G/DL (12.0-16.0); MEAN CORPUSCULAR VOLUME 95 FL (80-99); MONOCYTES % (AUTO) 6.6 % (1.0-10.0); NEUTROPHILS % (AUTO) 62.5 % (45.0-75.0); PLATELET COUNT 119 K/UL (150-450); RED BLOOD COUNT 2.83 M/UL (4.20-5.40); RED CELL DISTRIBUTION WIDTH 20.1 % (11.6-14.8); WHITE BLOOD COUNT 14.1 K/UL (4.8-10.8)
[2020-08-15] MEDS: Sennosides 8.6mg tab ORAL SCH (21:00)
--- NOTE | 2020-08-15 23:39 | Cardiology Progress Note ---
Subjective DATE OF SERVICE: Aug 15, 2020 S/P LUE AV fistula and right chest tunneled cath placement. BP parameters stable. Repeat Covid 19 PCR negative. No CP No c/o SOB. Continues with HD/UF - for fluid management and BP control Objective Last 24 Hour Vital Signs Date Time Temp Pulse Resp B/P (MAP) Pulse Ox O2 Delivery O2 Flow Rate FiO2 08/15/20 20:11 96 Nasal Cannula 3.0 32 08/15/20 18:24 68 189/75 08/15/20 18:24 189/75 08/15/20 18:19 97.6 68 16 189/75 (113) 100 08/15/20 16:37 97.4 63 15 180/80 98 Nasal Cannula 3 08/15/20 16:15 61 16 182/76 100 Simple Mask 6 08/15/20 16:10 60 15 185/74 100 Simple Mask 6 08/15/20 16:00 61 14 181/73 100 Simple Mask 6 08/15/20 15:50 60 18 100 08/15/20 15:46 97.2 60 18 161/74 100 Simple Mask 6 08/15/20 10:07 73 148/77 08/15/20 09:00 Room Air 08/15/20 09:00 73 148/77 08/15/20 09:00 148/77 08/15/20 08:00 98.2 73 20 148/77 (100) 93 08/15/20 04:00 97.6 69 19 138/72 (94) 96 08/15/20 00:00 98.0 66 20 150/71 (97) 96 HEENT: normal ENT inspection RHYTHM: NSR, Afib, VT LUNGS: rales bilaterally, other - Dialysis cath right chest CARDIAC: normal rate, regular rhythm, normal S1 and S2, other - no rub ABDOMEN: normal bowel sounds, non tender, no organomegaly EXTREMITIES: normal range of motion, non-tender, +1 edema Laboratory Tests Test 08/15/20 10:50 08/15/20 19:55 White Blood Count 9.2 K/UL (4.8-10.8) 14.1 K/UL (4.8-10.8) #H Red Blood Count 2.57 M/UL (4.20-5.40) L 2.83 M/UL (4.20-5.40) L Hemoglobin 7.6 G/DL (12.0-16.0) L 8.5 G/DL (12.0-16.0) L Hematocrit 24.6 % (37.0-47.0) L 26.8 % (37.0-47.0) L Mean Corpuscular Volume 96 FL (80-99) 95 FL (80-99) Mean Corpuscular Hemoglobin 29.8 PG (27.0-31.0) 30.0 PG (27.0-31.0) Mean Corpuscular Hemoglobin Concent 31.0 G/DL (32.0-36.0) L 31.6 G/DL (32.0-36.0) L Red Cell Distribution Width 20.1 % (11.6-14.8) H 20.1 % (11.6-14.8) H Platelet Count 122 K/UL (150-450) L 119 K/UL (150-450) L Mean Platelet Volume 9.5 FL (6.5-10.1) 7.4 FL (6.5-10.1) Neutrophils (%) (Auto) % (45.0-75.0) 62.5 % (45.0-75.0) Lymphocytes (%) (Auto) % (20.0-45.0) 28.0 % (20.0-45.0) Monocytes (%) (Auto) % (1.0-10.0) 6.6 % (1.0-10.0) Eosinophils (%) (Auto) % (0.0-3.0) 1.3 % (0.0-3.0) Basophils (%) (Auto) % (0.0-2.0) 1.5 % (0.0-2.0) Differential Total Cells Counted 100 Neutrophils % (Manual) 54 % (45-75) Lymphocytes % (Manual) 37 % (20-45) Monocytes % (Manual) 3 % (1-10) Eosinophils % (Manual) 2 % (0-3) Basophils % (Manual) 1 % (0-2) Band Neutrophils 3 % (0-8) Platelet Estimate Decreased L Platelet Morphology Normal Hypochromasia 2+ Anisocytosis 2+ Prothrombin Time 10.5 SEC (9.30-11.50) Prothromb Time International Ratio 0.9 (0.9-1.1) Activated Partial Thromboplast Time 26 SEC (23-33) Sodium Level 140 MMOL/L (136-145) Potassium Level 3.8 MMOL/L (3.5-5.1) Chloride Level 104 MMOL/L (98-107) Carbon Dioxide Level 31 MMOL/L (21-32) Anion Gap 5 mmol/L (5-15) Blood Urea Nitrogen 28 mg/dL (7-18) H Creatinine 3.6 MG/DL (0.55-1.30) H Estimat Glomerular Filtration Rate 15.2 mL/min (>60) Glucose Level 92 MG/DL (74-106) Calcium Level 8.2 MG/DL (8.5-10.1) L Microbiology Date/Time Source Procedure Growth Status 08/15/20 10:28 Nasopharynx SARS-CoV-2 RdRp Gene Assay - Final Complete Assessment/Plan Assessment/Plan ESRD Ac/chr diastolic CHF Paroxysmal atrial and ventricular arrhythmias Labile Hypertension with hypotension this afternoon. Chronic myocardial ischemia and probable NSTEMI COVID 19 PNA Sinus bradycardia due to meds. Infected PermCath Sepsis HD/UF per renal Titrating beta tc dosing as needed, with "hold parameter for low HR and BP. Continue metoprolol for anti-arrhythmic benefit. Maintain current antiHTN regimen, with titration as needed. Anti-plt therapy Antivirals/steroids/anticoagulation per ID Will ultimately need myocardial perfusion scan - as outpatient, once Covid 19 resolved. Solo Smith MD Aug 15, 2020 23:39
[2020-08-16] VITALS: BP 100/68
[2020-08-16] MEDS: Dyna-Hex 2% Top Sol 2oz TOPIC SCH ×2 (00:17→20:53)
[2020-08-16] MEDS: Iron Sucrose 100 MG in NS 55 ML IVPB SCH ×2 (00:18→20:50)
[2020-08-16] MEDS: Atorvastatin 80mg tab ORAL SCH ×2 (00:20→20:52)
[2020-08-16] MEDS: TraZODone 100mg tab ORAL SCH ×2 (00:20→20:52)
[2020-08-16] MEDS: Metoprolol Tartrate 50mg tab ORAL SCH ×3 (00:20→20:51)
[2020-08-16 04:00] VITALS: BP 123/60
[2020-08-16] MEDS: Nitroglycerin 2% oint pkt TOPIC SCH ×3 (06:04→18:07)
[2020-08-16 06:43] LABS: HEMOGLOBIN 7.8 G/DL (12.0-16.0); MEAN CORPUSCULAR VOLUME 96 FL (80-99); PLATELET COUNT 122 K/UL (150-450); RED CELL DISTRIBUTION WIDTH 19.4 % (11.6-14.8); WHITE BLOOD COUNT 10.2 K/UL (4.8-10.8)
[2020-08-16 06:57] LABS: CREATININE 4.6 MG/DL (0.55-1.30); PHOSPHORUS 3.1 MG/DL (2.5-4.9); POTASSIUM 4.2 MMOL/L (3.5-5.1)
[2020-08-16 08:00] VITALS: BP 128/54
--- NOTE | 2020-08-16 08:10 | 48 Hour Post Anesthesia Eval ---
Post Anesthesia Evaluation Procedure: Revision left av fistula, and permacath placement Date of Evaluation: Aug 16, 2020 Time of Evaluation: 08:08 Blood Pressure Systolic: 113 0: 56 Pulse Rate: 62 Respiratory Rate: 24 Temperature (Fahrenheit): 97.6 O2 Sat by Pulse Oximetry: 95 Airway: patent Nausea: No Vomiting: No Pain Intensity: 2 Hydration Status: adequate Cardiopulmonary Status: stable Mental Status/LOC: patient returned to baseline Follow-up Care/Observations: n/a Post-Anesthesia Complications: none Follow-up care needed: N/A Mikel Webb MD Aug 16, 2020 08:10
[2020-08-16] MEDS: Losartan 50mg tab ORAL SCH (09:00)
[2020-08-16] MEDS: Heparin 5000 units/ml inj SUBQ SCH ×2 (09:00→20:54)
--- NOTE | 2020-08-16 09:32 | Nephrology Progress Note ---
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 (4) Nephrotic syndrome (5) End-stage renal disease (6) CHF (congestive heart failure), NYHA class II (7) Metabolic acidosis (8) Suspected 2019 novel coronavirus infection (9) Pneumonia (10) Hypotension (11) Angina at rest (12) Anemia in chronic kidney disease (13) UTI (urinary tract infection) Plan d/w consultants, dexamethasone, antibiotics, ivernectin given dialysis cath and start HD 07/31, on 07/31 episode of hypotension and afib, nonsustained vtach, bp better with fluids, bp meds restart 08/04, on cardizem , nsr with pvc's , HD 08/01+08/02 +08/03, try to control bp with volume on HD --stable on HD 08/05 +08/07 d/w dr ge+maddie, fever spike 08/03 pm cultured, vanco ordered, fever again 08/06 , check c diff--neg,recheck covid prior to placing permcath, hd 08/10+08/12 anemia add venofer, repeat covid test neg, d/w dr meeks who didr permcath and transposition av fistula, Hd via karlee 08/14,08/16 low Hb to repeat stable, tolerates, dc planning Subjective Constitutional: Reports: weakness HEENT: Reports: no symptoms Neurologic/Psychiatric: Reports: no symptoms Subjective no cough, no chest pain Objective Objective Last 24 Hour Vital Signs Date Time Temp Pulse Resp B/P (MAP) Pulse Ox O2 Delivery O2 Flow Rate FiO2 08/16/20 08:10 62 24 95 08/16/20 06:04 123/60 08/16/20 04:00 98.4 86 18 123/60 (81) 95 08/16/20 00:20 80 149/71 08/16/20 00:00 98.8 95 20 100/68 (79) 94 08/15/20 21:00 Room Air 08/15/20 20:11 96 Nasal Cannula 3.0 32 08/15/20 20:00 98.4 93 20 147/75 (99) 95 08/15/20 18:24 68 189/75 08/15/20 18:24 189/75 08/15/20 18:19 97.6 68 16 189/75 (113) 100 08/15/20 16:37 97.4 63 15 180/80 98 Nasal Cannula 3 08/15/20 16:15 61 16 182/76 100 Simple Mask 6 08/15/20 16:10 60 15 185/74 100 Simple Mask 6 08/15/20 16:00 61 14 181/73 100 Simple Mask 6 08/15/20 15:50 60 18 100 08/15/20 15:46 97.2 60 18 161/74 100 Simple Mask 6 08/15/20 10:07 73 148/77 Intake and Output 08/15/20 08/16/20 19:00 07:00 Intake Total 25 ml 240 ml Balance 25 ml 240 ml IV Total 240 ml Hemodialysis 25 ml # Voids 2 Laboratory Tests 08/15/20 10:50: White Blood Count 9.2, Red Blood Count 2.57L, Hemoglobin 7.6L, Hematocrit 24.6L, Mean Corpuscular Volume 96, Mean Corpuscular Hemoglobin 29.8, Mean Corpuscular Hemoglobin Concent 31.0L, Red Cell Distribution Width 20.1H, Platelet Count 122L , Mean Platelet Volume 9.5, Neutrophils (%) (Auto) , Lymphocytes (%) (Auto) , Monocytes (%) (Auto) , Eosinophils (%) (Auto) , Basophils (%) (Auto) , Differential Total Cells Counted 100, Neutrophils % (Manual) 54, Lymphocytes % (Manual) 37, Monocytes % (Manual) 3, Eosinophils % (Manual) 2, Basophils % (Manual) 1, Band Neutrophils 3, Platelet Estimate DecreasedL, Platelet Morphology Normal, Hypochromasia 2+, Anisocytosis 2+, Prothrombin Time 10.5, Prothromb Time International Ratio 0.9, Activated Partial Thromboplast Time 26, Sodium Level 140, Potassium Level 3.8, Chloride Level 104, Carbon Dioxide Level 31, Anion Gap 5, Blood Urea Nitrogen 28H, Creatinine 3.6H, Estimat Glomerular Filtration Rate 15.2, Glucose Level 92, Calcium Level 8.2L 08/15/20 17:53: POC Whole Blood Glucose [Pending] 08/15/20 19:55: White Blood Count 14.1#H, Red Blood Count 2.83L, Hemoglobin 8.5L, Hematocrit 26.8L, Mean Corpuscular Volume 95, Mean Corpuscular Hemoglobin 30.0, Mean Corpuscular Hemoglobin Concent 31.6L, Red Cell Distribution Width 20.1H, Platelet Count 119L, Mean Platelet Volume 7.4, Neutrophils (%) (Auto) 62.5, Lymphocytes (%) (Auto) 28.0, Monocytes (%) (Auto) 6.6, Eosinophils (%) (Auto) 1.3, Basophils (%) (Auto) 1.5 08/16/20 05:55: White Blood Count 10.2, Red Blood Count 2.60L, Hemoglobin 7.8L, Hematocrit 25.0L , Mean Corpuscular Volume 96, Mean Corpuscular Hemoglobin 29.9, Mean Corpuscular Hemoglobin Concent 31.1L, Red Cell Distribution Width 19.4H, Platelet Count 122L, Mean Platelet Volume 8.3, Neutrophils (%) (Auto) , Lymphocytes (%) (Auto) , Monocytes (%) (Auto) , Eosinophils (%) (Auto) , Basophils (%) (Auto) , Neutrophils % (Manual) [Pending], Lymphocytes % (Manual) [Pending], Platelet Estimate [Pending], Platelet Morphology [Pending], Sodium Level 139, Potassium Level 4.2, Chloride Level 104, Carbon Dioxide Level 30, Anion Gap 5, Blood Urea Nitrogen 42H, Creatinine 4.6H, Estimat Glomerular Filtration Rate 11.4, Glucose Level 88, Calcium Level 8.0L, Phosphorus Level 3.1 08/16/20 06:47: POC Whole Blood Glucose 75 Height (Feet): 5 Height (Inches): 2.00 Weight (Pounds): 189 General Appearance: no apparent distress, alert EENT: normal ENT inspection Neck: normal alignment Cardiovascular: normal rate Respiratory/Chest: lungs clear Abdomen: non tender Extremities: no edema, other - fistula good bruit Neurologic: traffic incident management manager II-XII grossly normal Christopher Andres MD Aug 16, 2020 09:32
[2020-08-16] MEDS ORDERED: NORVASC5 MG ORAL (09:37)
[2020-08-16] MEDS ORDERED: RENVELA800 MG ORAL (09:37)
[2020-08-16] MEDS ORDERED: COZAAR50 MG ORAL (09:37)
[2020-08-16] MEDS ORDERED: METOPROLOL TART50 MG ORAL (09:37)
--- NOTE | 2020-08-16 11:15 | Infectious Diseases Prog Note ---
"Assessment/Plan Assessment/Plan antibiotics : none A 1. 1. COVID-19 pneumonia. She is on room air with 95 % saturation. s/p ivermectin s/p decadron 2. Diabetes. 3. Hypertension. 4. Renal failure. 5. COPD. 6. proteus | e.coli UTI s/p rx 7. leucocytosis likely secondary to steroids P 1. continue off antibiotics 2. will follow up cultures 3. continue isolation Subjective Constitutional: Denies: fever, chills Respiratory: Denies: shortness of breath, dry cough Gastrointestinal/Abdominal: Denies: nausea, vomiting, diarrhea Musculoskeletal: Denies: pain Allergies: Coded Allergies: No Known Allergies (Unverified , 07/29/20) Objective Last 24 Hour Vital Signs Date Time Temp Pulse Resp B/P (MAP) Pulse Ox O2 Delivery O2 Flow Rate FiO2 08/16/20 08:10 62 24 95 08/16/20 08:00 99.1 79 18 128/54 (78) 96 08/16/20 06:04 123/60 08/16/20 04:00 98.4 86 18 123/60 (81) 95 08/16/20 00:20 80 149/71 08/16/20 00:00 98.8 95 20 100/68 (79) 94 08/15/20 21:00 Room Air 08/15/20 20:11 96 Nasal Cannula 3.0 32 08/15/20 20:00 98.4 93 20 147/75 (99) 95 08/15/20 18:24 68 189/75 08/15/20 18:24 189/75 08/15/20 18:19 97.6 68 16 189/75 (113) 100 08/15/20 16:37 97.4 63 15 180/80 98 Nasal Cannula 3 08/15/20 16:15 61 16 182/76 100 Simple Mask 6 08/15/20 16:10 60 15 185/74 100 Simple Mask 6 08/15/20 16:00 61 14 181/73 100 Simple Mask 6 08/15/20 15:50 60 18 100 08/15/20 15:46 97.2 60 18 161/74 100 Simple Mask 6 Height (Feet): 5 Height (Inches): 2.00 Weight (Pounds): 189 Respiratory/Chest: lungs clear Cardiovascular: normal rate, regular rhythm, no gallop/murmur Abdomen: soft, non tender Extremities: no edema, other - right subclavian catheter Microbiology Date/Time Source Procedure Growth Status 08/15/20 10:28 Nasopharynx SARS-CoV-2 RdRp Gene Assay - Final Complete Laboratory Tests Test 08/15/20 17:53 08/15/20 19:55 08/16/20 05:55 08/16/20 06:47 POC Whole Blood Glucose Pending 75 MG/DL (74-106) White Blood Count 14.1 K/UL (4.8-10.8) #H 10.2 K/UL (4.8-10.8) Red Blood Count 2.83 M/UL (4.20-5.40) L 2.60 M/UL (4.20-5.40) L Hemoglobin 8.5 G/DL (12.0-16.0) L 7.8 G/DL (12.0-16.0) L Hematocrit 26.8 % (37.0-47.0) L 25.0 % (37.0-47.0) L Mean Corpuscular Volume 95 FL (80-99) 96 FL (80-99) Mean Corpuscular Hemoglobin 30.0 PG (27.0-31.0) 29.9 PG (27.0-31.0) Mean Corpuscular Hemoglobin Concent 31.6 G/DL (32.0-36.0) L 31.1 G/DL (32.0-36.0) L Red Cell Distribution Width 20.1 % (11.6-14.8) H 19.4 % (11.6-14.8) H Platelet Count 119 K/UL (150-450) L 122 K/UL (150-450) L Mean Platelet Volume 7.4 FL (6.5-10.1) 8.3 FL (6.5-10.1) Neutrophils (%) (Auto) 62.5 % (45.0-75.0) % (45.0-75.0) Lymphocytes (%) (Auto) 28.0 % (20.0-45.0) % (20.0-45.0) Monocytes (%) (Auto) 6.6 % (1.0-10.0) % (1.0-10.0) Eosinophils (%) (Auto) 1.3 % (0.0-3.0) % (0.0-3.0) Basophils (%) (Auto) 1.5 % (0.0-2.0) % (0.0-2.0) Differential Total Cells Counted 100 Neutrophils % (Manual) 67 % (45-75) Lymphocytes % (Manual) 23 % (20-45) Monocytes % (Manual) 9 % (1-10) Eosinophils % (Manual) 1 % (0-3) Basophils % (Manual) 0 % (0-2) Band Neutrophils 0 % (0-8) Platelet Estimate Decreased L Platelet Morphology Normal Hypochromasia 1+ Anisocytosis 2+ Sodium Level 139 MMOL/L (136-145) Potassium Level 4.2 MMOL/L (3.5-5.1) Chloride Level 104 MMOL/L (98-107) Carbon Dioxide Level 30 MMOL/L (21-32) Anion Gap 5 mmol/L (5-15) Blood Urea Nitrogen 42 mg/dL (7-18) H Creatinine 4.6 MG/DL (0.55-1.30) H Estimat Glomerular Filtration Rate 11.4 mL/min (>60) Glucose Level 88 MG/DL (74-106) Calcium Level 8.0 MG/DL (8.5-10.1) L Phosphorus Level 3.1 MG/DL (2.5-4.9) Current Medications Medications (Trade) Dose Ordered Sig/Andrew Route PRN Reason Start Time Stop Time Status Last Admin Dose Admin Acetaminophen (Tylenol) 650 mg Q4H PRN ORAL Mild Pain (Pain Scale 1-3) 07/29/20 22:45 08/28/20 22:44 08/16/20 00:19 Acetaminophen (Tylenol) 650 mg Q4H PRN ORAL Temp >100.5 07/29/20 22:45 08/28/20 22:44 08/04/20 00:00 Amlodipine Besylate (Norvasc) 5 mg BID ORAL 08/04/20 10:00 09/03/20 09:59 08/15/20 18:24 Aspirin (ASA) 81 mg DAILY ORAL 07/30/20 09:00 09/13/20 08:59 08/14/20 09:00 Atorvastatin Calcium (Lipitor) 80 mg BEDTIME ORAL 07/30/20 21:00 10/28/20 20:59 08/16/20 00:20 Budesonide/ Formoterol Fumarate (Symbicort 160/ 4.5) 2 puff BIDRT INH 07/30/20 10:00 10/28/20 09:59 08/16/20 00:17 Chlorhexidine Gluconate (Brittany-Hex 2%) 1 applic DAILY@2000 TOPIC 08/01/20 20:00 10/30/20 19:59 08/16/20 00:17 Diphenhydramine HCl (Benadryl) 25 mg Q6H PRN ORAL Itching 07/29/20 22:45 08/28/20 22:44 Epoetin Matthew (Epoetin Matthew(ESRD on dialysis)) 10,000 unit WED-WED-WED SUBQ 08/12/20 21:00 11/10/20 20:59 08/14/20 21:50 Escitalopram Oxalate (Lexapro) 10 mg DAILY ORAL 07/30/20 09:00 08/29/20 08:59 08/14/20 08:57 Famotidine (Pepcid) 20 mg DAILY ORAL 07/30/20 09:00 10/28/20 08:59 08/14/20 08:56 Guaifenesin (Robitussin) 200 mg Q4H PRN ORAL FOR COUGH 07/29/20 22:45 10/27/20 22:44 Heparin Sodium (Porcine) (Heparin 5000 units/ml) 5,000 units EVERY 12 HOURS SUBQ 07/30/20 09:00 09/13/20 08:59 08/10/20 23:00 Iron Sucrose 100 mg/Sodium Chloride 60 ml @ 240 mls/hr BEDTIME IVPB 08/12/20 21:00 08/16/20 21:14 08/16/20 00:18 Losartan Potassium (Cozaar) 100 mg DAILY ORAL 08/04/20 10:00 09/03/20 09:59 08/14/20 08:57 Metoprolol Tartrate (Lopressor) 50 mg Q12HR ORAL 08/06/20 09:00 11/04/20 08:59 08/16/20 00:20 Nitroglycerin (Nitro-Bid) 1 inch TID@0600,1200,1800 TOPIC 08/02/20 06:00 09/01/20 05:59 08/16/20 06:04 Nitroglycerin (Ntg) 0.4 mg Q5M PRN SL Prn Chest Pain 07/29/20 22:45 08/28/20 22:44 Ondansetron HCl (Zofran) 4 mg Q4H PRN IVP Nausea & Vomiting 07/29/20 22:45 08/28/20 22:44 08/12/20 17:06 Pantoprazole (Protonix) 40 mg DAILY ORAL 08/02/20 13:00 09/01/20 12:59 08/14/20 09:00 Polyethylene Glycol (Miralax) 17 gm DAILYPRN PRN ORAL Constipation 07/29/20 22:45 08/28/20 22:44 08/08/20 09:54 Sennosides (Senokot) 8.6 mg QHS ORAL 07/30/20 21:00 08/29/20 20:59 08/14/20 21:50 Sevelamer Carbonate (Renvela) 800 mg THREE TIMES A DAY ORAL 08/01/20 09:30 10/30/20 09:29 08/15/20 18:24 Sodium Chloride 1,000 ml @ 500 mls/hr Q2H PRN IVLG sbp<90 during hd 08/16/20 06:00 08/16/20 23:59 Trazodone HCl (Desyrel) 100 mg BEDTIME ORAL 07/30/20 21:00 08/29/20 20:59 08/16/20 00:20 Vitamin B Complex/ Vit C/Folic Acid (Nephrovite) 1 tab DAILY ORAL 07/30/20 09:00 08/29/20 08:59 08/15/20 10:03 Joyce Laurent MD Aug 16, 2020 11:15"
[2020-08-16 12:00] VITALS: BP 118/59
[2020-08-16] MEDS: Nephrovite tab (Rena-Vite) ORAL SCH (14:57)
[2020-08-16] MEDS: Aspirin Baby 81mg ORAL SCH (14:59)
[2020-08-16 16:00] VITALS: BP 139/62
[2020-08-16 20:00] VITALS: BP 142/63
[2020-08-16] MEDS: Sennosides 8.6mg tab ORAL SCH (20:50)
[2020-08-16] MEDS: Epoetin Alfa-EPBX(ESRD on dialysis)10,000 unit/ml vial SUBQ SCH (21:12)
[2020-08-17] VITALS: BP 138/67
[2020-08-17 04:00] VITALS: BP 148/66
--- NOTE | 2020-08-17 04:35 | Cardiology Progress Note ---
Subjective DATE OF SERVICE: Aug 16, 2020 S/P LUE AV fistula and right chest tunneled cath placement. Low hemoglobin noted. BP parameters stable. Repeat Covid 19 PCR negative. No CP No c/o SOB. Continues with HD/UF - for fluid management and BP control Objective Last 24 Hour Vital Signs Date Time Temp Pulse Resp B/P (MAP) Pulse Ox O2 Delivery O2 Flow Rate FiO2 08/17/20 00:00 97.9 87 18 138/67 (90) 95 08/16/20 23:31 85 18 97 Room Air 21 08/16/20 23:30 86 18 97 Room Air 21 08/16/20 21:00 Room Air 08/16/20 20:51 91 140/70 08/16/20 20:13 96 Room Air 21 08/16/20 20:00 98.4 89 18 142/63 (89) 96 08/16/20 18:07 92 139/62 08/16/20 18:07 139/62 08/16/20 16:00 98.0 92 16 139/62 (87) 95 08/16/20 14:58 118/59 08/16/20 12:00 98.1 92 16 118/59 (78) 99 08/16/20 09:00 Room Air 08/16/20 09:00 92 118/59 08/16/20 09:00 92 118/59 08/16/20 09:00 118/59 08/16/20 08:10 62 24 95 08/16/20 08:00 99.1 79 18 128/54 (78) 96 08/16/20 06:04 123/60 HEENT: normal ENT inspection RHYTHM: NSR, Afib, VT LUNGS: rales bilaterally, other - Dialysis cath right chest CARDIAC: normal rate, regular rhythm, normal S1 and S2, other - no rub ABDOMEN: normal bowel sounds, non tender, no organomegaly EXTREMITIES: normal range of motion, non-tender, +1 edema Laboratory Tests Test 08/16/20 05:55 08/16/20 06:47 08/16/20 13:15 08/16/20 17:58 White Blood Count 10.2 K/UL (4.8-10.8) Red Blood Count 2.60 M/UL (4.20-5.40) L Hemoglobin 7.8 G/DL (12.0-16.0) L Hematocrit 25.0 % (37.0-47.0) L Mean Corpuscular Volume 96 FL (80-99) Mean Corpuscular Hemoglobin 29.9 PG (27.0-31.0) Mean Corpuscular Hemoglobin Concent 31.1 G/DL (32.0-36.0) L Red Cell Distribution Width 19.4 % (11.6-14.8) H Platelet Count 122 K/UL (150-450) L Mean Platelet Volume 8.3 FL (6.5-10.1) Neutrophils (%) (Auto) % (45.0-75.0) Lymphocytes (%) (Auto) % (20.0-45.0) Monocytes (%) (Auto) % (1.0-10.0) Eosinophils (%) (Auto) % (0.0-3.0) Basophils (%) (Auto) % (0.0-2.0) Differential Total Cells Counted 100 Neutrophils % (Manual) 67 % (45-75) Lymphocytes % (Manual) 23 % (20-45) Monocytes % (Manual) 9 % (1-10) Eosinophils % (Manual) 1 % (0-3) Basophils % (Manual) 0 % (0-2) Band Neutrophils 0 % (0-8) Platelet Estimate Decreased L Platelet Morphology Normal Hypochromasia 1+ Anisocytosis 2+ Sodium Level 139 MMOL/L (136-145) Potassium Level 4.2 MMOL/L (3.5-5.1) Chloride Level 104 MMOL/L (98-107) Carbon Dioxide Level 30 MMOL/L (21-32) Anion Gap 5 mmol/L (5-15) Blood Urea Nitrogen 42 mg/dL (7-18) H Creatinine 4.6 MG/DL (0.55-1.30) H Estimat Glomerular Filtration Rate 11.4 mL/min (>60) Glucose Level 88 MG/DL (74-106) Calcium Level 8.0 MG/DL (8.5-10.1) L Phosphorus Level 3.1 MG/DL (2.5-4.9) POC Whole Blood Glucose 75 MG/DL (74-106) 145 MG/DL (74-106) H 110 MG/DL (74-106) H Microbiology Date/Time Source Procedure Growth Status 08/15/20 10:28 Nasopharynx SARS-CoV-2 RdRp Gene Assay - Final Complete Assessment/Plan Assessment/Plan ESRD Ac/chr diastolic CHF Paroxysmal atrial and ventricular arrhythmias Labile Hypertension with hypotension this afternoon. Chronic myocardial ischemia and probable NSTEMI COVID 19 PNA Sinus bradycardia due to meds. Infected PermCath Sepsis HD/UF per renal May need PRBC tx. Titrating beta tc dosing as needed, with "hold parameter for low HR and BP. Continue metoprolol for anti-arrhythmic benefit. Maintain current antiHTN regimen, with titration as needed. Anti-plt therapy Antivirals/steroids/anticoagulation per ID Will ultimately need myocardial perfusion scan - as outpatient, once Covid 19 resolved. Solo Smith MD Aug 17, 2020 04:35
[2020-08-17] MEDS: Nitroglycerin 2% oint pkt TOPIC SCH (06:20)
[2020-08-17 08:00] VITALS: BP 154/66
[2020-08-17] MEDS: Heparin 5000 units/ml inj SUBQ SCH (09:00)
[2020-08-17] MEDS: Losartan 50mg tab ORAL SCH (09:11)
[2020-08-17] MEDS: Metoprolol Tartrate 50mg tab ORAL SCH (09:12)
[2020-08-17] MEDS: Nephrovite tab (Rena-Vite) ORAL SCH (09:12)
[2020-08-17] MEDS: Aspirin Baby 81mg ORAL SCH (09:12)
[2020-08-17 12:00] VITALS: BP 119/73
[2020-08-17 16:00] VITALS: BP 147/65
--- NOTE | 2020-08-17 20:15 | Discharge Summary ---
DATE OF ADMISSION: 07/29/2020 DATE OF DISCHARGE: 08/17/2020 PERTINENT HISTORY: The patient is a 70-year-old lady with chronic kidney disease stage 5, diabetes, hypertension, who presents with worsening azotemia and metabolic acidosis. She recently was found to have asymptomatic positive COVID-19 test, however, she developed a cough and chest x-ray showing bilateral infiltrates at the ECF and was sent to the hospital. The patient has a history of COPD. PERTINENT PHYSICAL FINDINGS: See my dictated History and Physical. HEAD EYES, EARS, NOSE, AND THROAT: Unremarkable. LUNGS: No rales or rhonchi. HEART: Regular rhythm. ABDOMEN: Obese and soft without organomegaly. There is a ventral hernia. EXTREMITIES: Showed 2+ edema and dry scaly skin. COURSE IN THE HOSPITAL: The patient had worsening azotemia and required dialysis. She also had bilateral pulmonary infiltrates and tests were positive for COVID-19 and she was seen by Infectious Disease and Pulmonary consultant intern, was given dexamethasone and Remdesivir. She required a temporary dialysis catheter and had serial dialysis for fluid overload. She had improvement in her cough. She had labile blood pressure initially high and required adjustment in medications and blood pressure improved with fluid removal on dialysis. She also had some evidence of chronic diastolic CHF and elevated troponin consistent with acute myocardial ischemia and infarction. The permanent dialysis access could not be arranged for quite a number days because of the COVID-19 status, but subsequently COVID-19 test returned negative and she underwent dialysis PermCath and transposition of AV fistula left arm by Dr. Bautista and tolerated the procedure well. On the day of discharge, her vital signs were stable. Lungs clear. Heart, regular rhythm. Extremities, no edema. She was alert and responsive and she was discharged back to the ECF in a stable condition. FINAL DIAGNOSES: 1. COVID-19 pneumonia. 2. End-stage renal disease. 3. Acute on chronic diastolic congestive heart failure. 4. Paroxysmal atrial and ventricular arrhythmias. 5. Labile hypertension with hypotension episodes. 6. Acute myocardial ischemia and possible non-ST elevation myocardial infarction. 7. History of obesity. 8. Adult-onset diabetes with diabetic nephropathy. 9. Hypertensive heart disease. 10. Bedridden status, nonambulatory. 11. History of COPD. 12. Anemia of chronic kidney disease. DISCHARGE DISPOSITION: To the ECF on a renal diet. MEDICATIONS: Per the discharge medication list. FOLLOWUP: Follow up by Dr. Andres and dialysis and the assisted facility. Christopher Andres M.D. DR: CINDY JOB#: [id number] CC:
--- NOTE | 2020-08-18 01:04 | Cardiology Progress Note ---
Subjective DATE OF SERVICE: Aug 17, 2020 S/P LUE AV fistula and right chest tunneled cath placement. Hemoglobin remaining stable. BP parameters stable. Repeat Covid 19 PCR negative. No CP No c/o SOB. Continues with HD/UF - for fluid management and BP control Objective Last 24 Hour Vital Signs Date Time Temp Pulse Resp B/P (MAP) Pulse Ox O2 Delivery O2 Flow Rate FiO2 08/17/20 16:00 98.2 76 18 147/65 (92) 96 08/17/20 12:00 97.5 74 18 119/73 (88) 96 08/17/20 10:00 Room Air 21 08/17/20 10:00 Room Air 21 08/17/20 09:12 77 154/66 08/17/20 09:12 77 154/66 08/17/20 09:11 154/66 08/17/20 09:00 Room Air 08/17/20 08:00 98.9 77 16 154/66 (95) 96 08/17/20 07:40 97 Room Air 21 08/17/20 06:20 148/66 08/17/20 04:00 98.3 85 18 148/66 (93) 95 HEENT: normal ENT inspection RHYTHM: NSR, Afib, VT LUNGS: diminished breath sounds, other - Dialysis cath right chest CARDIAC: normal rate, regular rhythm, normal S1 and S2, other - no rub ABDOMEN: normal bowel sounds, non tender, no organomegaly EXTREMITIES: normal range of motion, non-tender, +1 edema Microbiology Date/Time Source Procedure Growth Status 08/15/20 10:28 Nasopharynx SARS-CoV-2 RdRp Gene Assay - Final Complete Assessment/Plan Assessment/Plan ESRD Ac/chr diastolic CHF Paroxysmal atrial and ventricular arrhythmias Labile Hypertension with hypotension this afternoon. Chronic myocardial ischemia and probable NSTEMI COVID 19 PNA Sinus bradycardia due to meds. Infected PermCath Sepsis HD/UF per renal Epo/Fe++ suppl Titrating beta tc dosing as needed, with "hold parameter for low HR and BP. Continue metoprolol for anti-arrhythmic benefit. Maintain current antiHTN regimen, with titration as needed. Anti-plt therapy Myocardial perfusion scan - as outpatient.| Stable for discharge from cardiovascular standpoint. Solo Smith MD Aug 18, 2020 01:04
== END 2020-08-17 17:15 | DRG 950 ==
LOC: EDBD 21:16 → EMR 21:45 → EDBEDREQ 21:59 → 2E 22:06 → EDBEDREQ 07-30 00:47 → 4E 08-09 07:11
PROC: 5A1D70Z Performance of Urinary Filtration, Intermittent, Less than 6 Hours Per Day (ICD-10-PCS; 2020-07-31)
PROC: 0JH63XZ Insertion of Tunneled Vascular Access Device into Chest Subcutaneous Tissue and Fascia, Percutaneous Approach (ICD-10-PCS; 2020-08-15)
PROC: 05HM33Z Insertion of Infusion Device into Right Internal Jugular Vein, Percutaneous Approach (ICD-10-PCS; 2020-08-15)
PROC: 02PY33Z Removal of Infusion Device from Great Vessel, Percutaneous Approach (ICD-10-PCS; 2020-08-15)
PROC: 05SC0ZZ Reposition Left Basilic Vein, Open Approach (ICD-10-PCS; principal; 2020-08-15 12:00)
DX: U07.1 COVID-19 (principal); J12.89 Other viral pneumonia; I21.4 Non-ST elevation (NSTEMI) myocardial infarction; N39.0 Urinary tract infection, site not specified; I13.2 Hypertensive heart and chronic kidney disease with heart failure and with stage 5 chronic kidney disease, or end stage renal disease; N18.6 End stage renal disease; E11.22 Type 2 diabetes mellitus with diabetic chronic kidney disease; I50.33 Acute on chronic diastolic (congestive) heart failure; I47.2 Ventricular tachycardia; Z87.891 Personal history of nicotine dependence; E87.2 Acidosis; E87.70 Fluid overload, unspecified; I49.8 Other specified cardiac arrhythmias; I20.9 Angina pectoris, unspecified; J44.9 Chronic obstructive pulmonary disease, unspecified; Z74.01 Bed confinement status
CPT/HCPCS: 36415; 36569; 71045; 76000; 76937; 80048; 80053; 80061; 81003; 82550; 82553; 82728; 82803; 82962; 83605; 83615; 83690; 83735; 83880; 84100; 84443; 84484; 85007; 85025; 85379; 85610; 85730; 86140; 86703; 86803; 86850; 86900; 86901; 87040; 87081; 87086; 87181; 87324; 87340; 93005; 93306; 93931; 93971; 94640; 96365; 96375; 99285; J1815; J2250; J2405; U0002